=== PATIENT | female | born 1965 | race Caucasian/White ===

== ENCOUNTER 2020-01-01 16:01 | Outpatient (CLI) | payer OTHER, SELFPAY ==
--- NOTE | ~2020-01-01 | XR_ITS ---
EXAMINATION: XR wrist RT w scaphoid EXAM DATE: 01/01/2020 16:24 INDICATION: Right wrist pain, fall in August. TECHNIQUE: Right wrist frontal, frontal with ulnar deviation, oblique and lateral projections obtain ed and reviewed. There is no prior study for comparison. FINDINGS: Right wrist scapholunate joint space is maintained. No periosteal reaction or band of scle rosis to suggest subacute stress fracture. There are no acute fractures or dislocations identified. There is no subcutaneous gas. The soft tissue is unremarkable. There are no radiopaque foreign bod ies. There is mild triscaphe and 1st carpometacarpal primary osteoarthritis. There are no bony eros ions identified. IMPRESSION: Mild right wrist osteoarthritis. Reviewed, dictated and finalized at location G.
== END 2020-01-01 16:02 | disposition home or self-care (01) ==
LOC: CHSIMG 16:03
PROVIDERS: PCP Family Medicine; Visit Provider Family Medicine
DX: M25.531 Pain in right wrist (principal)
CPT/HCPCS: 73110

== ENCOUNTER 2020-04-16 10:31 | Outpatient (CLI) | payer OTHER, SELFPAY ==
--- NOTE | ~2020-04-16 | MM_ITS ---
EXAMINATION: MM screening [facility] BI w von HISTORY: Screening mammogram TECHNIQUE: Craniocaudal and mediolateral oblique 3-D tomosynthesis images were obtained and synthetic 2-D images were generated. CAD analysis was submitted and interpreted. COMPARISON: 04/15/2019, 02/05/2018 bilateral digital screening mammogram examinations BREAST PARENCHYMAL COMPOSITION: There are scattered areas of fibroglandular density. FINDINGS: There is no evidence of suspicious mass, calcification, or architectural distortion to sugg est malignancy in either breast. There has been no suspicious interval change. IMPRESSION: 1. No mammographic evidence of malignancy. 2. Recommend routine screening mammography in one year. BI-RADS Category 1: Negative.. Reviewed, dictated and finalized at location A. AD DRAWER
== END 2020-04-16 10:32 | disposition home or self-care (01) ==
LOC: CHSIMG 10:35
PROVIDERS: PCP Nurse Practitioner Family; Visit Provider Nurse Practitioner Family
DX: Z12.31 Encounter for screening mammogram for malignant neoplasm of breast (principal)
CPT/HCPCS: 77063; 77067

== ENCOUNTER 2020-08-24 10:30 | Emergency (ER) | payer OTHER, SELFPAY ==
--- NOTE | ~2020-08-24 | CT_ITS ---
EXAMINATION: CT abdomen pelvis w con DATE: 08/24/2020 12:00 INDICATION: Right lower quadrant abdominal pain. TECHNIQUE: Computed tomography (CT) of the abdomen and pelvis was performed with 100 mL Omnipaque 350 intravenous contrast. Automated exposure control and iterative reconstruction technique were employe d. The dose-length product was 543.25 mGy-cm. COMPARISON: None. FINDINGS: The visualized portions of the lung bases demonstrate mild atelectasis. No pleural effusion . The heart size is normal. No pericardial effusion. The liver, gallbladder, spleen, pancreas, adrena l glands, and kidneys are normal. The appendix is normal. There is diverticulosis of the colon withou t evidence of diverticulitis. There are no pathologically enlarged lymph nodes. There is no free intr aperitoneal fluid. There is moderate lumbar spondylosis. IMPRESSION: 1. No etiology for the patient's symptoms. Reviewed, dictated and finalized at location A.
[2020-08-24 10:35] VITALS: BP 140/84; PULSE 86; RESP 17; TEMP 37.1; O2SAT 99
[2020-08-24 11:03] LABS: Add Urine Microscopic? YES; Appearance Urine Clear (Clear); Bilirubin Urine Negative (Negative); Blood Urine Negative (Negative); Color Urine Yellow (Yellow); Glucose Urine UA Negative (Negative); Ketones Urine Negative (Negative); Leukocyte Esterase Ur 1+ LEU/UL (Negative); Nitrate Urine Negative (Negative); Protein Urine Negative (Negative); Urobilinogen Urine 0.2 mg/dL (0.2-1.0)
[2020-08-24] MEDS: ONDANSETRON INJ 4 MG/2 ML VIAL IV PUSH (11:04)
[2020-08-24] MEDS: HYDROmorphone HCL INJ (*CRX) 2 MG/ML VIAL 0.5 MG IV PUSH ×2 (11:05→13:54)
[2020-08-24 11:11] LABS: Basophils Absolute Auto 0.05 K/mm3 (0.00-0.10); Basophils Percent Auto 0.5 % (0.0-1.0); Eosinophils Absolute Auto 0.09 K/mm3 (0.02-0.50); Hematocrit 39.4 % (35.0-49.0); Hemoglobin 13.1 g/dL (12.0-15.0); Immature Granulocyte Absolute 0.03 K/mm3 (0.00-0.00); Immature Granulocyte Percent A 0.3 % (0.0-0.0); Lymphocytes Absolute Auto 2.09 K/mm3 (1.10-4.50); Lymphocytes Percent Auto 22.5 % (18.0-42.0); Mean Corpuscular HGB Conc 33.2 g/dL (32.0-36.0); Mean Corpuscular Hemoglobin 31.6 pg (27.0-31.0); Mean Corpuscular Volume 94.9 fL (78.0-102.0); Mean Platelet Volume 10.3 fl (9.2-11.8); Monocytes Percent Auto 5.4 % (2.0-11.0); Neutrophils Absolute Auto 6.5 K/mm3 (1.7-7.2); Neutrophils Percent Auto 70.3 % (50.0-70.0); Platelet Count Result 265 K/mm3 (150-420); Red Blood Count 4.15 M/mm3 (4.20-5.40); Red Cell Distribution Width 11.9 % (11.6-14.4); White Blood Count 9.3 K/mm3 (4.8-10.8)
[2020-08-24 11:16] LABS: Bacteria Urine Trace /hpf; RBC Urine None seen /hpf (0-2); Renal Epithelial Cells Urine Few /hpf; Squamous Epithelial Cell Urine Few /hpf (Few)
[2020-08-24 11:24] LABS: Alanine Aminotransferase 25 U/L (14-59); Albumin Level 3.6 g/dL (3.4-5.0); Alkaline Phosphatase 185 U/L (46-116); Anion Gap 7 mmol/L (8-16); Aspartate Amino Transferase 13 U/L (15-37); Bilirubin,Total 0.2 mg/dL (0.00-1.00); Blood Urea Nitrogen 9 mg/dL (7-18); Calcium 9.2 mg/dL (8.5-10.1); Carbon Dioxide 30 mmol/L (21-32); Chloride 103 mmol/L (98-108); Estimated Glomerular Filt Rate > 60; Glucose 131 mg/dL (70-99); Lipase 179 U/L (73-393); Osmolality Calculated 290 mOsm/kg (285-295); Potassium 4.3 mmol/L (3.5-5.1); Sodium 140 mmol/L (136-145)
--- NOTE | 2020-08-24 12:53 | PC.NURSE ---
[facility] CALLED FOR POSSIBLE TRANSFER
[2020-08-24 13:00] VITALS: BP 124/74; PULSE 80; O2SAT 95
--- NOTE | 2020-08-24 13:17 | ED.ABDPAIN ---
HPI - Abdominal Pain General Chief Complaint: Abdominal Pain Stated Complaint: Right side stomach pain Time Seen by Provider: 08/24/20 10:45 Source: patient Mode of arrival: ambulatory Limitations: no limitations History of Present Illness HPI narrative: Patient comes in with sharp, stabbing, ongoing RLQ abdominal pain. This has been ongoing for about a week she says and becoming a more severe pain. She even has pain with walking. She denies fever and chills. She denies any vaginal discharge or pelvic symptoms. Nothing has helped this at home. MD elicited complaint: abdominal pain Onset (ago): day(s) Pain Consistency: constant Location: RLQ Severity: severe Quality: stabbing Radiation: none Exacerbating factors: nothing Relieving factors: nothing Associated symptoms: denies other symptoms Related Data Home Medications Medication Instructions Recorded Confirmed docusate sodium [Stool Softener] 100 mg PO DAILY 08/24/20 08/24/20 fexofenadine 180 mg PO DAILY 08/24/20 08/24/20 valacyclovir 500 mg PO DAILY 08/24/20 08/24/20 Allergies Allergy/AdvReac Type Severity Reaction Status Date / Time No Known Allergies Allergy Verified 08/24/20 10:17 Review of Systems Constitutional: Constitutional: Reports no additional constitutional complaints Eyes: Eyes: Reports no additional eye complaints ENT: Reports system reviewed and no additional complaints, except as documented Cardiovascular: Cardiovascular: Reports no additional cardiovascular complaints Respiratory: Respiratory: Reports no additional respiratory complaints Gastrointestinal: Gastrointestinal: Reports no additional gastrointestinal complaints Genitourinary: Genitourinary: Reports no additional female genitourinary complaints Musculoskeletal: Musculoskeletal: Reports no additional musculoskeletal complaints Integumentary/Breasts: Skin/Breast: Reports system reviewed and no additional complaints, except as docu Neurologic: Reports system reviewed and no additional complaints, except as documented Psychiatric: Psychiatric: Reports no additional psychiatric complaints Endocrine: Endocrine: Reports no additional endocrine complaints Hematologic/Lymphatic: Hematologic/Lymphatic: Reports no additional hematologic/lymphatic complaints Allergic/Immunologic: Allergic/Immunologic: Reports no additional allergic/immunologic complaints [facility] Past Medical History Medical History (Updated 08/24/20 @ 13:34 by Avel Russell MD) Carpal tunnel syndrome, bilateral Chronic back pain Depression Hypertension Tobacco dependence Surgical History Surgical History History of X3 87,89, and 98 History of carpal tunnel surgery left arm and elbow 2017. Right arm and elbow 2018 Hx of tonsillectomy 1st grade Family History Family History Other Acute myocardial infarction Family history of malignant neoplasm Hypertension Social History Social History Smoking status: Current every day smoker Tobacco type: cigarettes Exam Const: General: alert Orientation/consciousness: patient oriented x3 HENMT: Head: normal to inspection Ears: external ears normal General nose exam: Normal external nose present Mouth: Yes Normal oral and palatal mucosa present Throat: posterior oropharynx normal Eyes: Conjunctivae: conjunctivae normal Neck: Neck: normal visual inspection Chest: Chest palpation & inspection: normal inspection of the chest Resp: Effort & Inspection: normal respiratory effort Auscultation: clear to auscultation bilaterally Cardio: Rate: regular rate Rhythm: regular rhythm GI: Other: abdomen soft, she is quite tender in the RLQ, with repeated exams revealing the same tenderness, and pain with percussion Skin: General skin exam: normal color Neuro: General: patient sharmila
[2020-08-24 14:28] VITALS: BP 122/88; PULSE 86; RESP 16; O2SAT 95
== END 2020-08-24 15:15 | disposition short-term general hospital (02) ==
PROVIDERS: Emergency Provider Emergency Medicine; PCP Nurse Practitioner Family
DX: R10.31 Right lower quadrant pain (principal)
CPT/HCPCS: 36415; 74177; 80053; 81001; 83690; 85025; 87086; 87088; 96365; 96375; 96376; 99285; J1170; J2405; J2543; Q9967

== ENCOUNTER 2020-10-28 19:46 | Emergency (ER) | payer OTHER, SELFPAY ==
[2020-10-28 20:30] VITALS: BP 126/71; PULSE 100; RESP 20; TEMP 36.6; O2SAT 98
[2020-10-28] MEDS: KETOROLAC (*BKC) 60 MG/2 ML VIAL IM (21:00)
[2020-10-28] MEDS: BACLOFEN 10 MG TABLET 20 MG PO (21:01)
[2020-10-28] MEDS: DEXAMETHASONE 4 MG TABLET 12 MG PO (21:02)
[2020-10-28] MEDS: HYDROcodone/acetaminophen (*CRX) 5-325 MG TABLET 2 TAB PO (21:05)
[2020-10-28 21:34] VITALS: BP 108/73; PULSE 87; RESP 20; TEMP 36.2; O2SAT 98
--- NOTE | 2020-10-28 21:36 | ED.BACK ---
HPI - Back Pain/Injury General Chief Complaint: Back Pain/Injury Stated Complaint: SI joint pain Time Seen by Provider: 10/28/20 20:30 Source: patient Mode of arrival: ambulatory Limitations: no limitations History of Present Illness HPI Narrative: Mrs Blanco comes in having minimal back pain, but severe pain in the left SI joint and radiation of that pain down her left leg to the foot. Pain is sharp, knife like, severe, and associate with previous known back injury. This radicular is has been ongoing, worse over the last two weeks. She comes in tonight because of worsing sharp radicular pain, which has been such that the little narcotic she has had has not been enough to resolve. It is unclear at this point as to if she has had an adequate trial of a steroid. MD elicited complaint: back pain Pertinent past history: prior back pain Onset (ago): day(s) Timing: constant Severity: severe Similar Symptoms Previously: Yes Quality: sharp Radiation: left leg below the knee Exacerbating factors: movement Relieving factors: immobilization Associated symptoms: denies other symptoms Treatments prior to arrival: other medications and prescription analgesics Related Data Home Medications Medication Instructions Recorded Confirmed docusate sodium [Stool Softener] 100 mg PO DAILY 08/24/20 10/28/20 valacyclovir 500 mg PO DAILY 08/24/20 10/28/20 bisacodyl 10 mg rectal suppository 10 mg RECTAL DAILY PRN 08/31/20 10/28/20 polyethylene glycol 3350 17 17 g PO DAILY 08/31/20 10/28/20 gram/dose oral powder pregabalin 75 mg PO BID 10/28/20 10/28/20 Allergies Allergy/AdvReac Type Severity Reaction Status Date / Time No Known Allergies Allergy Verified 08/31/20 09:28 Review of Systems Constitutional: Constitutional: Reports no additional constitutional complaints Eyes: Eyes: Reports no additional eye complaints ENT: Reports system reviewed and no additional complaints, except as documented Cardiovascular: Cardiovascular: Reports no additional cardiovascular complaints Respiratory: Respiratory: Reports no additional respiratory complaints Gastrointestinal: Gastrointestinal: Reports no additional gastrointestinal complaints Genitourinary: Genitourinary: Reports no additional female genitourinary complaints Musculoskeletal: Musculoskeletal: Reports as per HPI Integumentary/Breasts: Skin/Breast: Reports system reviewed and no additional complaints, except as docu Neurologic: Comments: no focal weakness, Psychiatric: Psychiatric: Reports no additional psychiatric complaints Endocrine: Endocrine: Reports no additional endocrine complaints Hematologic/Lymphatic: Hematologic/Lymphatic: Reports no additional hematologic/lymphatic complaints Allergic/Immunologic: Allergic/Immunologic: Reports no additional allergic/immunologic complaints [facility] Past Medical History Medical History (Updated 10/29/20 @ 05:59 by Avel Russell MD) Carpal tunnel syndrome, bilateral Chronic back pain Depression Hypertension Tobacco dependence Surgical History Surgical History History of X3 87,89, and 98 History of carpal tunnel surgery left arm and elbow 2017. Right arm and elbow 2018 Hx of tonsillectomy 1st grade Family History Family History Other Acute myocardial infarction Family history of malignant neoplasm Hypertension Social History Social History Smoking status: Current every day smoker Tobacco type: cigarettes Exam Const: General: no acute distress Orientation/consciousness: patient oriented x3 HENMT: Head: normal to inspection Ears: external ears normal and TM's normal bilaterally Mouth: Yes Normal oral and palatal mucosa present Throat: posterior oropharynx normal Eyes: Conjunctivae: conjunctivae normal Neck: Neck: normal visual inspect
== END 2020-10-28 21:56 | disposition home or self-care (01) ==
PROVIDERS: Emergency Provider Emergency Medicine; PCP Nurse Practitioner Family
DX: M54.30 Sciatica, unspecified side (principal)
CPT/HCPCS: 96372; 99283; A9270; J1885; J8540

== ENCOUNTER 2021-02-28 11:14 | Outpatient (RCR) | payer OTHER, SELFPAY ==
--- NOTE | 2021-02-28 12:11 | PTOPEVAL ---
Thank you for referring Irina Blanco to [facility].? The patient is scheduled to be seen for therapy? ____x/week for ___ weeks. Please review, sign, date and return this plan of care FREDY. I agree with and certify that the following plan of care is medically necessary. Referring Physician Date Admitting Provider: Attending Provider: Kash Butt, MD Referring Provider: *PT Outpatient Evaluation Start: 02/28/21 11:15 Freq: Status: Active Protocol: Document 02/28/21 11:15 ACR (Rec: 02/28/21 12:10 ACR [id number]) Therapy Assessment Status Assessment Status Assessment Status Evaluation Outpatient Past Medical History Cardiovascular History Hx Hypertension Yes Musculoskeletal History Hx Back Pain Yes Psychosocial History Hx Anxiety Yes Hx Depression Yes Pain History Has Past Pain Affected Your Daily Life Yes History of Long-Term Prescription Pain Yes Medication Use (Opiates) Evaluation Information Problem Diagnosis cervical radiculopathy Onset 12/29/20 Subjective Information Patient reports that two Query Text:As Reported By Patient/ months ago she woke up and had Family neck pain that started in the neck and went down to her toes. She states that she has some numbness in the arm that comes and goes, but it is very intense and feels like a million needles in the arm. Patient states that she has difficulty with all activities especially with extending the neck. Patient states that her goal for therapy is to not hurt. Prior Level of Function Activity Level (Last 3 Months) Occupation disabled Hand Dominance Left Activity of Daily Living Ability Independent Indoor/Home Mobility Independent Community Mobility Independent Stairs Ability Independent Functional Cognition (Planning, Shopping Independent , Taking Medications) Cooking Yes Cleaning Yes Laundry Yes Shopping Yes Driving Yes Pain Assessment Timing of Pain Assessment Timing of Pain Assessment Assessment Pain Scale Pain Scale Used Numeric (1 - 10) Self Report Pain Assessment Right Neck Reported Pain Level [address]
== END 2021-02-28 13:30 | disposition home or self-care (01) ==
LOC: CHSPT 11:14
PROVIDERS: Visit Provider Anesthesiology Pain Medicine
DX: M54.12 Radiculopathy, cervical region (principal)
CPT/HCPCS: 97014; 97110; 97140; 97161; G0283

== ENCOUNTER 2021-04-19 11:51 | Outpatient (CLI) | payer OTHER, SELFPAY ==
--- NOTE | ~2021-04-19 | MM_ITS ---
EXAMINATION: MM screening [facility] BI w von HISTORY: Screening mammogram TECHNIQUE: Craniocaudal and mediolateral oblique 3-D tomosynthesis images were obtained and synthetic 2-D images were generated. CAD analysis was submitted and interpreted. COMPARISON: 04/16/2020, 04/16/2019, 02/05/2018 BREAST PARENCHYMAL COMPOSITION: There are scattered areas of fibroglandular density. FINDINGS: There is no evidence of suspicious mass, calcification, or architectural distortion to sugg est malignancy in either breast. There has been no suspicious interval change. IMPRESSION: 1. No mammographic evidence of malignancy. 2. Recommend routine screening mammography in one year. BI-RADS Category 1: Negative Reviewed, dictated and finalized at location A. ANCHOR
== END 2021-04-19 11:52 | disposition home or self-care (01) ==
LOC: CHSIMG 11:52
PROVIDERS: PCP Nurse Practitioner Family; Visit Provider Nurse Practitioner Family
DX: Z12.31 Encounter for screening mammogram for malignant neoplasm of breast (principal)
CPT/HCPCS: 77063; 77067

== ENCOUNTER 2021-05-04 15:23 | Emergency (ER) | payer OTHER, SELFPAY ==
--- NOTE | ~2021-05-04 | XR_ITS ---
XR hand RT min 3V DATE: 05/04/2021 15:59 INDICATION: Laceration of right first digit TECHNIQUE: 3 views COMPARISON: 01/01/2020 right wrist FINDINGS: There is mild osteoarthritis at the radionavicular, triscaphe and first carpometacarpal and some interphalangeal joints. No fracture or dislocation, periosteal reaction or bone destruction is detected. No radiopaque soft tissue foreign body or subcutaneous emphysema is noted. IMPRESSION: Polyarticular osteoarthritis Reviewed, dictated and finalized at location A. ACTOR MACHINE OPERATOR
[2021-05-04 15:39] VITALS: BP 141/92; PULSE 111; RESP 20; TEMP 36.9; O2SAT 98
--- NOTE | 2021-05-04 15:50 | ED.WOUNDLAC ---
HPI - Wound/Laceration General Chief Complaint: Wound/Laceration Stated Complaint: cut thumb Time Seen by Provider: 05/04/21 15:25 Source: patient and RN notes reviewed Mode of arrival: ambulatory Limitations: no limitations History of Present Illness Onset (ago): hour(s) (1) Location: other (right index finger) Place: home Patient tetanus UTD: No Context: accidental Associated symptoms: pain Treatments prior to arrival: bandage Related Data Home Medications Medication Instructions Recorded Confirmed duloxetine 60 mg PO DAILY 05/04/21 lisinopril 20 mg PO DAILY 05/04/21 omeprazole 20 mg PO DAILY 05/04/21 pregabalin [Lyrica] 75 mg PO BID 05/04/21 05/04/21 Allergies Allergy/AdvReac Type Severity Reaction Status Date / Time No Known Allergies Allergy Verified 05/04/21 15:48 Review of Systems Review of Systems: All systems reviewed & are unremarkable except as noted in HPI and below PMFSH Past Medical History Medical History Carpal tunnel syndrome, bilateral Chronic back pain Depression Hypertension Laceration of finger of right hand Tobacco dependence Surgical History Surgical History History of X3 87,89, and 98 History of carpal tunnel surgery left arm and elbow 2017. Right arm and elbow 2018 Hx of tonsillectomy 1st grade Family History Family History Other Acute myocardial infarction Family history of malignant neoplasm Hypertension Social History Social History Smoking status: Never smoker Tobacco type: cigarettes Exam Const: General: healthy appearing, no acute distress and alert Orientation/consciousness: patient oriented x3 Limitations: no limitations HENMT: Head: normal to inspection Ears: external ears normal, TM's normal bilaterally and EAC's normal General nose exam: Normal external nose present and Normal nares present Face and sinus: sinuses nontender Mouth: Yes lip normal and Yes moist mucous membranes Throat: posterior oropharynx normal Eyes: Conjunctivae: conjunctivae normal Pupils: Equal, round and reactive pupils present EOM: EOMs intact bilaterally Neck: Neck: normal visual inspection Chest: Chest palpation & inspection: normal inspection of the chest Resp: Effort & Inspection: normal respiratory effort Auscultation: clear to auscultation bilaterally Cardio: Rate: regular rate and tachycardic Other: HR moderated spontaneously. GI: GI Palp: Yes Soft to palpation and No Tenderness to palpation present (GI) Auscultation: normal bowel sounds Back/Spine/Pelvis: Back: no CVA tenderness Skin: General skin exam: normal color Rashes: no rashes Neuro: General: patient oriented x3, moves all extremities, no meningeal signs, no focal motor deficits and CN's II-XI intact bilaterally Extrem: General: normal to inspection and no pedal edema Other: Lateral right index finger 3/4 cm well approx laceration. fullROM. no other acute finger abnormality. Psych: Appearance: grossly normal and well kempt Mental Status: mental status grossly normal Affect: normal affect Attitude: cooperative Thought content: Yes Normal thought content present Course Course Emergency Course: Pt was stable and pain-free in the ED. Reevaluation(s) Reevaluation #1: VSS. Date: 05/04/21 Time: 15:51 Vital Signs Vital signs: Vital Signs Temperature 36.9 C 05/04/21 15:39 Pulse Rate 111 H 05/04/21 15:39 Respiratory Rate 20 05/04/21 15:39 Blood Pressure 141/92 H 05/04/21 15:39 Pulse Oximetry 98 05/04/21 15:39 Temperature 36.8 C 05/04/21 16:24 Pulse Rate 85 05/04/21 16:24 Respiratory Rate 20 05/04/21 16:24 Blood Pressure 120/68 05/04/21 16:24 Pulse Oximetry 96 05/04/21 16:24 Procedures Laceration 3/4 cm lac r
[2021-05-04] MEDS: TETANUS,DIPHTHERIA,AC PERTUSSIS ADULT 0.5 ML (ADACEL) IM (16:09)
[2021-05-04] MEDS: ACETAMINOPHEN 325 MG TABLET 650 MG PO (16:09)
[2021-05-04 16:24] VITALS: BP 120/68; PULSE 85; RESP 20; TEMP 36.8; O2SAT 96
== END 2021-05-04 16:35 | disposition home or self-care (01) ==
PROVIDERS: Emergency Provider Emergency Medicine; PCP Nurse Practitioner Family
DX: S61.210A Laceration without foreign body of right index finger without damage to nail, initial encounter (principal); W45.8XXA Other foreign body or object entering through skin, initial encounter
CPT/HCPCS: 73130; 90471; 90715; 99283; A9270

== ENCOUNTER 2021-06-28 11:19 | Outpatient (CLI) | payer OTHER, SELFPAY ==
--- NOTE | ~2021-06-28 | US_ITS ---
EXAMINATION: US pelvic complete EXAM DATE: 06/28/2021 11:41 INDICATION: Concern for fibroid in uterus or cyst on ovary. Endometrial ablation. TECHNIQUE: Pelvic transabdominal sonogram was performed. There are multiple grayscale and Doppler im ages available for interpretation. Correlation is made to CT abdomen pelvis 08/24/2020. FINDINGS: Uterus measures 8.7 x 2.6 x 3.3 cm, and is morphologically normal. Endometrial stripe ulises sures 2.9 mm, within normal limits. There is no free pelvic fluid. Right adnexa: The ovary measures 2.3 x 1.2 x 1.5 cm and is morphologically normal. Ovarian vascular f low confirmed. Left adnexa: The ovary measures 2.9 x 1.7 x 1.8 cm and is morphologically normal. Ovarian vascular fl ow confirmed. IMPRESSION: 1. Unremarkable pelvic ultrasound exam. Reviewed, dictated and finalized at location A.
== END 2021-06-28 11:20 | disposition home or self-care (01) ==
LOC: CHSIMG 11:21
PROVIDERS: PCP Nurse Practitioner Family; Visit Provider Nurse Practitioner Family
DX: R10.32 Left lower quadrant pain (principal)
CPT/HCPCS: 76856

== ENCOUNTER 2021-06-30 09:27 | Outpatient (CLI) | payer OTHER, SELFPAY ==
[2021-06-30 09:59] LABS: Estimated Glomerular Filt Rate > 60
== END 2021-06-30 09:28 | disposition home or self-care (01) ==
LOC: CHSIMG 09:28
PROVIDERS: PCP Nurse Practitioner Family; Visit Provider Nurse Practitioner Family
DX: R10.32 Left lower quadrant pain (principal)
CPT/HCPCS: 99199

== ENCOUNTER 2021-10-15 12:56 | Emergency (ER) | payer OTHER, SELFPAY ==
[2021-10-15 13:08] VITALS: BP 134/74; PULSE 84; RESP 20; TEMP 37.1; O2SAT 98
[2021-10-15] MEDS: methylPREDNISolone SOD SUCC 125 MG VIAL IM (14:15)
--- NOTE | 2021-10-15 14:21 | ED.GENADULT ---
HPI - General Adult General Chief complaint: Allergic Reaction Stated complaint: stung by wasp in R knee History of Present Illness HPI narrative: The patient is 56-year-old woman who has had previous hypersensitivity to wasp stings whereby she had experienced three wasp stings in the past, resulting in significant swelling and discomfort. Never had airway compromise or respiratory difficulties or facial swelling. She sustained a wasp sting to the right knee today resulting in swelling in the site. no dyspnea. No respiratory difficulties. No fevers or chills. No other complaints. Related Data Home Medications Medication Instructions Recorded Confirmed duloxetine 60 mg capsule,delayed 60 mg PO DAILY 05/04/21 10/15/21 release pregabalin 75 mg capsule (Lyrica) 75 mg PO BID 05/04/21 10/15/21 Allergies Allergy/AdvReac Type Severity Reaction Status Date / Time No Known Allergies Allergy Verified 10/15/21 13:13 Review of Systems Review of Systems: All systems reviewed & are unremarkable except as noted in HPI and below Constitutional: Constitutional: Reports no additional constitutional complaints, Denies anorexia, Denies body ache(s), Denies chills, Denies excessive sweating, Denies fatigue, Denies fever(s), Denies frequent falls, Denies headache(s), Denies malaise and Denies poor appetite Eyes: Eyes: Reports no additional eye complaints, Denies blurry vision, Denies change in vision, Denies irritation, Denies itchy eyes and Denies photophobia ENT: Reports system reviewed and no additional complaints, except as documented, Reports Normal hearing present, Denies change in voice, Denies dysphagia, Denies vertigo, Denies dizziness, Denies ear discharge, Denies headache(s), Denies hearing loss, Denies hoarseness, Denies nasal congestion, Denies neck pain, Denies sinus pressure, Denies sore throat and Denies throat swelling Cardiovascular: Cardiovascular: Reports no additional cardiovascular complaints, Denies chest pain, Denies syncope, Denies rapid heart rate, Denies irregular heart rhythm, Denies leg edema, Denies dyspnea and Denies slow heart rate Respiratory: Respiratory: Reports no additional respiratory complaints, Denies cough, Denies dyspnea, Denies stridor and Denies wheezing Gastrointestinal: Gastrointestinal: Reports no additional gastrointestinal complaints, Denies abdominal pain, Denies melena, Denies hematochezia, Denies dysphagia, Denies diarrhea, Denies nausea and Denies vomiting Genitourinary: Genitourinary: Denies hematuria, Denies urinary frequency, Denies dysuria, Denies flank pain and Denies urinary urgency Musculoskeletal: Musculoskeletal: Reports no additional musculoskeletal complaints, Denies abnormal gait, Denies back pain, Denies myalgias, Denies arthralgias, Denies joint swelling, Denies limited range of motion, Denies muscle cramps, Denies muscle weakness, Denies neck pain and Denies numbness Integumentary/Breasts: Skin/Breast: Reports system reviewed and no additional complaints, except as docu, Denies breast pain, Reports change in pigmentation, Denies pruritus, Reports erythema, Reports rash ( Redness change in skin color and rash localized to the right knee) and Denies wounds Comments: no evidence of urticaria. No facial swelling. Neurologic: Reports system reviewed and no additional complaints, except as documented, Reports Normal hearing present, Denies Abnormal speech present, Denies abnormal gait, Denies confusion, Denies vertigo, Denies dizziness, Denies syncope, Denies frequent falls, Denies headache(s), Denies focal weakness, Denies numbness and Denies paresthesias Psychiatric: Psychiatric: Reports no additional psychiatric complaints and Denies confusion Endocrine: Endocrine: Reports no additional endocrine complaints, Denies cold intolerance, Denies excessive sweating, Denies fatigue and Denies heat intolerance Hematologic/Lymphatic: Hematologic/Lymphatic: Reports no additional hematologi
[2021-10-15 14:50] VITALS: BP 128/72; PULSE 84; RESP 20; TEMP 37; O2SAT 98
== END 2021-10-15 14:55 | disposition home or self-care (01) ==
PROVIDERS: Emergency Provider Emergency Medicine; PCP Nurse Practitioner Family
DX: T63.461A Toxic effect of venom of wasps, accidental (unintentional), initial encounter (principal)
CPT/HCPCS: 96372; 99283; J2930

== ENCOUNTER 2021-11-04 18:42 | Emergency (ER) | payer OTHER, SELFPAY ==
--- NOTE | ~2021-11-04 | CT_ITS ---
EXAMINATION: CT abdomen pelvis w con DATE: 11/04/2021 20:41 INDICATION: Right upper quadrant abdominal pain for 3 days TECHNIQUE: Computed tomography (CT) of the abdomen and pelvis was performed with 100 cc Omnipaque 350 intravenous contrast. The dose-length product was 634.25 mGy-cm. Automated exposure control and iter ative reconstruction technique were employed. COMPARISON: CT dated 08/24/2020. FINDINGS: Lung bases are unremarkable. Heart size normal. No significant pleural or pericardial effus ion. No significant vascular abnormality. No lymphadenopathy. Fatty infiltration of the liver. Gallbladder is present. The spleen, pancreas, adrenal glands and kid neys are unremarkable. Small fat-containing umbilical hernia. Colonic diverticulosis without evidence for diverticulitis. No acute osseous abnormality. No free air or free fluid. Nonobstructive bowel pa ttern. Normal appendix. IMPRESSION: 1. No acute abdominal abnormality. Reviewed, dictated and finalized at location A.
--- NOTE | 2021-11-04 18:57 | ED.ABDPAIN ---
HPI - Abdominal Pain General Chief Complaint: Abdominal Pain Stated Complaint: pt thinks appendicitis Time Seen by Provider: 11/04/21 18:57 Source: patient and RN notes reviewed Mode of arrival: ambulatory Limitations: no limitations History of Present Illness MD elicited complaint: abdominal pain Pertinent past history: none Onset (ago): day(s) (3) Pain Consistency: intermittent Location: RUQ Severity: moderate Quality: stabbing and sharp Radiation: epigastric Migration to: no migration Exacerbating factors: eating Relieving factors: nothing Associated symptoms: nausea Related Data Home Medications Medication Instructions Recorded Confirmed duloxetine 60 mg capsule,delayed 60 mg PO DAILY 05/04/21 11/04/21 release pregabalin 75 mg capsule (Lyrica) 75 mg PO BID 05/04/21 11/04/21 hydrocodone 5 mg-acetaminophen 325 1 tablet PO PRN PRN Back Pain 11/04/21 11/04/21 mg tablet Allergies Allergy/AdvReac Type Severity Reaction Status Date / Time No Known Allergies Allergy Verified 10/17/21 11:44 Review of Systems Review of Systems: All systems reviewed & are unremarkable except as noted in HPI and below Constitutional: Constitutional: Denies chills and Denies fever(s) Cardiovascular: Cardiovascular: Denies chest pain Gastrointestinal: Gastrointestinal: Reports as per HPI, Reports bloating, Denies constipation and Denies diarrhea Genitourinary: Genitourinary: Denies hematuria, Denies nocturia and Denies dysuria [facility] Past Medical History Medical History Carpal tunnel syndrome, bilateral Chronic back pain Depression Hot flashes not due to menopause Hypertension Laceration of finger of right hand Tobacco dependence Surgical History Surgical History History of X3 87,89, and 98 History of carpal tunnel surgery left arm and elbow 2017. Right arm and elbow 2018 Hx of tonsillectomy 1st grade Family History Family History Other Acute myocardial infarction Family history of malignant neoplasm Hypertension Social History Social History Smoking status: Never smoker Tobacco type: cigarettes Exam Const: General: no acute distress, alert and ill appearing acutely Nutritional Appearance: well nourished Orientation/consciousness: patient oriented x3 HENMT: Head: normal to inspection Ears: external ears normal Face and sinus: normal facial exam Mouth: Yes moist mucous membranes Eyes: Conjunctivae: conjunctivae normal Pupils: Equal, round and reactive pupils present EOM: EOMs intact bilaterally Neck: Neck: normal visual inspection Resp: Effort & Inspection: normal respiratory effort Auscultation: clear to auscultation bilaterally Cardio: Rate: regular rate Rhythm: regular rhythm GI: GI Palp: Yes Soft to palpation, Yes Tenderness to palpation present (GI) ( severe RUQ), Yes Guarding due to palpation present (GI) and No Rebound tenderness present Auscultation: normal bowel sounds Back/Spine/Pelvis: Back: no CVA tenderness Cervical Spine: cervical ROM normal Thoracic/Lumbar Spine: thoraco-lumbar ROM normal Skin: General skin exam: normal color Rashes: no rashes Neuro: General: patient oriented x3, moves all extremities, no focal motor deficits and CN's II-XI intact bilaterally Speech: normal speech Gait exam (Neuro): Normal gait present Extrem: General: normal to inspection and no clubbing, cyanosis or edema Psych: Mental Status: mental status grossly normal Affect: normal affect Attitude: cooperative Course Vital Signs Vital signs: Vital Signs Temperature 36.6 C 11/04/21 19:14 Pulse Rate 90 11/04/21 19:14 Respiratory Rate 20 11/04/21 19:14 Blood Pressure 151/91 H 11/04/21 19:14 Pulse Oximetry 98 11/04/21 19:14 Oxygen Delivery
[2021-11-04 19:14] VITALS: BP 151/91; PULSE 90; RESP 20; TEMP 36.6; O2SAT 98
[2021-11-04] MEDS: HYDROmorphone HCL INJ (*CRX) 2 MG/ML VIAL 1 MG IV PUSH (19:22)
[2021-11-04] MEDS: ONDANSETRON INJ 4 MG/2 ML VIAL IV PUSH (19:22)
[2021-11-04 19:25] VITALS: BP 150/80; PULSE 90; RESP 20; O2SAT 97
[2021-11-04 19:25] LABS: Basophils Absolute Auto 0.05 K/mm3 (0.00-0.10); Basophils Percent Auto 0.6 % (0.0-1.0); Eosinophils Absolute Auto 0.08 K/mm3 (0.02-0.50); Hematocrit 40.6 % (35.0-49.0); Hemoglobin 13.6 g/dL (12.0-15.0); Immature Granulocyte Absolute 0.04 K/mm3 (0.00-0.00); Immature Granulocyte Percent A 0.5 % (0.0-0.0); Lymphocytes Absolute Auto 2.54 K/mm3 (1.10-4.50); Lymphocytes Percent Auto 30.4 % (18.0-42.0); Mean Corpuscular HGB Conc 33.5 g/dL (32.0-36.0); Mean Corpuscular Hemoglobin 31.7 pg (27.0-31.0); Mean Corpuscular Volume 94.6 fL (78.0-102.0); Mean Platelet Volume 10.4 fl (9.2-11.8); Monocytes Absolute Auto 0.65 K/mm3 (0.10-0.90); Monocytes Percent Auto 7.8 % (2.0-11.0); Neutrophils Percent Auto 59.7 % (50.0-70.0); Platelet Count Result 276 K/mm3 (150-420); Red Blood Count 4.29 M/mm3 (4.20-5.40); Red Cell Distribution Width 11.9 % (11.6-14.4); White Blood Count 8.4 K/mm3 (4.8-10.8)
[2021-11-04 19:27] LABS: Add Urine Microscopic? YES; Appearance Urine Clear (Clear); Bilirubin Urine Negative (Negative); Blood Urine Negative (Negative); Color Urine Light Yellow (Yellow); Glucose Urine UA Negative (Negative); Ketones Urine Negative (Negative); Leukocyte Esterase Ur 1+ LEU/UL (Negative); Nitrate Urine Negative (Negative); Protein Urine Negative (Negative); Specific Grav Ur <= 1.005 (1.010-1.020); Urobilinogen Urine 0.2 mg/dL (0.2-1.0); pH Urine 5.5 (5.0-8.0)
[2021-11-04 19:33] LABS: Bacteria Urine Trace /hpf; RBC Urine 0-2 /hpf (0-2); Squamous Epithelial Cell Urine Rare /hpf (Few)
[2021-11-04 19:44] LABS: Alanine Aminotransferase 46 U/L (14-59); Alkaline Phosphatase 185 U/L (46-116); Anion Gap 9 mmol/L (8-16); Aspartate Amino Transferase 25 U/L (15-37); Bilirubin,Total 0.2 mg/dL (0.00-1.00); Blood Urea Nitrogen 15 mg/dL (7-18); Calcium 9.4 mg/dL (8.5-10.1); Carbon Dioxide 29 mmol/L (21-32); Chloride 100 mmol/L (98-108); Estimated CRCL calculation 59 ml/min; Estimated Glomerular Filt Rate > 60; Glucose 109 mg/dL (70-99); Lipase 176 U/L (73-393); Osmolality Calculated 287 mOsm/kg (285-295); Potassium 3.7 mmol/L (3.5-5.1); Sodium 138 mmol/L (136-145); Total Protein 7.3 g/dL (6.4-8.2)
[2021-11-04 19:47] LABS: Lactic Acid Reflex 0.9 mmol/L (0.4-2.0)
[2021-11-04 19:52] LABS: Amylase 43 U/L (25-115)
[2021-11-04 20:15] VITALS: BP 140/90; PULSE 90; RESP 20; TEMP 36.6; O2SAT 96
[2021-11-04 21:23] VITALS: BP 139/90; PULSE 90; RESP 18; TEMP 36.6; O2SAT 100
== END 2021-11-04 21:24 | disposition home or self-care (01) ==
PROVIDERS: Emergency Provider Emergency Medicine; PCP Family Medicine
DX: R10.11 Right upper quadrant pain (principal)
CPT/HCPCS: 36415; 74177; 80053; 81001; 82150; 83605; 83690; 85025; 87086; 87088; 96374; 96375; 99284; J1170; J2405; Q9967

== ENCOUNTER 2021-11-08 10:41 | Emergency (ER) | payer OTHER, SELFPAY ==
--- NOTE | ~2021-11-08 | CT_ITS ---
EXAMINATION: CT abdomen pelvis wo/w con DATE: 11/08/2021 13:04 INDICATION: Right upper quadrant pain TECHNIQUE: Computed tomography (CT) of the abdomen and pelvis was performed with 100 cc Omnipaque 350 intravenous contrast. The dose-length product was 812.17 mGy-cm. Automated exposure control and iter ative reconstruction technique were employed. COMPARISON: CT dated 11/04/2021. FINDINGS: Lung bases are unremarkable. Heart size normal. No significant pleural or pericardial effus ion. Tiny fat-containing umbilical hernia. Fatty infiltration of the liver. The spleen, pancreas, adrenal glands and kidneys are unremarkable. G allbladder is present. Nonobstructive bowel gas pattern. Colonic diverticulosis without evidence for diverticulitis. No significant vascular abnormality. No lymphadenopathy. Mild osteoarthritis of the h ips. Moderate multilevel facet degenerative change. IMPRESSION: 1. No acute abdominal abnormality. Reviewed, dictated and finalized at location B.
--- NOTE | ~2021-11-08 | US_ITS ---
EXAMINATION: US right upper quadrant DATE: 11/08/2021 11:37 INDICATION: Right upper quadrant pain TECHNIQUE: Multiple grayscale and Doppler ultrasound images of the abdomen were obtained. COMPARISON: CT, 11/04/2021 FINDINGS: Bowel gas obscures visualization of the pancreas. The liver demonstrates increased echogeni city, heterogenous echotexture, and decreased through transmission. No surface nodularity. Normal hep atopetal flow in the main portal vein. The gallbladder is normal with no abnormal wall thickening, pe richolecystic fluid or stones. The normal common bile duct measures 3 mm. There was no sonographic Mu rphy sign although sensitivity is limited by pain medication. IMPRESSION: 1. No sonographic correlate for the patient's symptoms. 2. Diffuse hepatic steatosis. Reviewed, dictated and finalized at location A.
[2021-11-08 10:50] VITALS: BP 143/100; PULSE 106; RESP 18; TEMP 36.1; O2SAT 100
--- NOTE | 2021-11-08 10:50 | ED.ABDPAIN ---
HPI - Abdominal Pain General Chief Complaint: Abdominal Pain Stated Complaint: Gallbladder pain Time Seen by Provider: 11/08/21 10:52 Source: patient and RN notes reviewed Mode of arrival: ambulatory Limitations: no limitations History of Present Illness HPI narrative: patient presents with worsening abdominal pain. She is actually doubled over in pain. She was here 3 days ago for similar symptoms and had CT scan blood work done. I was unable to do any ultrasound at that time. She states she has been taking the Bentyl 3 times a day without any relief. She has been watching what she is eating. Only thing she had prior to arrival with tomato juice. She says she still has pain in the right upper quadrant epigastric area. She denies any fever chills. She has been having some nausea vomiting diarrhea. MD elicited complaint: abdominal pain Pertinent past history: none Onset (ago): day(s) (4) Pain Consistency: intermittent Location: RUQ Severity: severe Quality: stabbing, sharp and burning Radiation: epigastric Migration to: no migration Exacerbating factors: eating Relieving factors: nothing Associated symptoms: nausea, vomiting and diarrhea Related Data Home Medications Medication Instructions Recorded Confirmed duloxetine 60 mg capsule,delayed 60 mg PO DAILY 05/04/21 11/08/21 release pregabalin 75 mg capsule (Lyrica) 75 mg PO BID 05/04/21 11/08/21 hydrocodone 5 mg-acetaminophen 325 1 tablet PO PRN PRN Back Pain 11/04/21 11/08/21 mg tablet Allergies Allergy/AdvReac Type Severity Reaction Status Date / Time No Known Allergies Allergy Verified 11/08/21 10:55 Review of Systems Review of Systems: All systems reviewed & are unremarkable except as noted in HPI and below Constitutional: Constitutional: Denies chills and Denies fever(s) Respiratory: Respiratory: Denies cough Genitourinary: Genitourinary: Denies nocturia and Denies dysuria [facility] Past Medical History Medical History Carpal tunnel syndrome, bilateral Chronic back pain Depression Hot flashes not due to menopause Hypertension Laceration of finger of right hand Tobacco dependence Surgical History Surgical History History of X3 87,89, and 98 History of carpal tunnel surgery left arm and elbow 2017. Right arm and elbow 2018 Hx of tonsillectomy 1st grade Family History Family History Other Acute myocardial infarction Family history of malignant neoplasm Hypertension Social History Social History Smoking status: Never smoker Tobacco type: cigarettes Exam Const: General: no acute distress ( Appears in pain), alert and ill appearing acutely Nutritional Appearance: well nourished Orientation/consciousness: patient oriented x3 Limitations: no limitations HENMT: Head: normal to inspection Ears: external ears normal Face and sinus: normal facial exam Eyes: Conjunctivae: conjunctivae normal Pupils: Equal, round and reactive pupils present EOM: EOMs intact bilaterally Neck: Neck: normal visual inspection Resp: Effort & Inspection: normal respiratory effort Auscultation: clear to auscultation bilaterally Cardio: Rate: tachycardic Rhythm: regular rhythm GI: GI Palp: Yes Soft to palpation, Yes Tenderness to palpation present (GI) ( severe right upper quadrant and epigastrium), Yes Guarding due to palpation present (GI) ( moderate) and No Rebound tenderness present Auscultation: normal bowel sounds Back/Spine/Pelvis: Back: no CVA tenderness Cervical Spine: cervical ROM normal Thoracic/Lumbar Spine: thoraco-lumbar ROM normal Skin: General skin exam: normal color Rashes: no rashes Neuro: General: patient oriented x3, moves all extremities, no focal motor deficits and CN's II-XI intact bilaterally
[2021-11-08 11:09] LABS: Basophils Absolute Auto 0.05 K/mm3 (0.00-0.10); Basophils Percent Auto 0.7 % (0.0-1.0); Eosinophils Absolute Auto 0.11 K/mm3 (0.02-0.50); Eosinophils Percent Auto 1.6 % (1.0-6.0); Hematocrit 42.9 % (35.0-49.0); Hemoglobin 14.2 g/dL (12.0-15.0); Immature Granulocyte Absolute 0.03 K/mm3 (0.00-0.00); Immature Granulocyte Percent A 0.4 % (0.0-0.0); Lymphocytes Absolute Auto 1.88 K/mm3 (1.10-4.50); Lymphocytes Percent Auto 27.9 % (18.0-42.0); Mean Corpuscular HGB Conc 33.1 g/dL (32.0-36.0); Mean Corpuscular Hemoglobin 31.7 pg (27.0-31.0); Mean Corpuscular Volume 95.8 fL (78.0-102.0); Mean Platelet Volume 10.5 fl (9.2-11.8); Monocytes Absolute Auto 0.55 K/mm3 (0.10-0.90); Monocytes Percent Auto 8.1 % (2.0-11.0); Neutrophils Absolute Auto 4.1 K/mm3 (1.7-7.2); Neutrophils Percent Auto 61.3 % (50.0-70.0); Platelet Count Result 274 K/mm3 (150-420); Red Blood Count 4.48 M/mm3 (4.20-5.40); Red Cell Distribution Width 11.9 % (11.6-14.4); White Blood Count 6.8 K/mm3 (4.8-10.8)
[2021-11-08] MEDS: HYDROmorphone HCL INJ (*CRX) 2 MG/ML VIAL 1 MG IV PUSH (11:10)
[2021-11-08 11:20] LABS: Amylase 47 U/L (25-115); CRP < 0.5 mg/dL (0.0-0.9); Lipase 206 U/L (73-393)
[2021-11-08 11:23] LABS: Alanine Aminotransferase 42 U/L (14-59); Alkaline Phosphatase 172 U/L (46-116); Anion Gap 7 mmol/L (8-16); Aspartate Amino Transferase 27 U/L (15-37); Bilirubin,Total 0.7 mg/dL (0.00-1.00); Blood Urea Nitrogen 11 mg/dL (7-18); Calcium 9.7 mg/dL (8.5-10.1); Carbon Dioxide 28 mmol/L (21-32); Chloride 102 mmol/L (98-108); Estimated CRCL calculation 60 ml/min; Estimated Glomerular Filt Rate > 60; Glucose 130 mg/dL (70-99); Osmolality Calculated 285 mOsm/kg (285-295); Potassium 4.5 mmol/L (3.5-5.1); Sodium 137 mmol/L (136-145); Total Protein 7.5 g/dL (6.4-8.2)
[2021-11-08 11:26] LABS: Lactic Acid Reflex 0.6 mmol/L (0.4-2.0)
[2021-11-08 11:51] VITALS: BP 132/89; PULSE 88; RESP 16; O2SAT 99
[2021-11-08 11:54] LABS: Add Urine Microscopic? YES; Appearance Urine Clear (Clear); Bilirubin Urine Negative (Negative); Blood Urine Negative (Negative); Color Urine Light Yellow (Yellow); Glucose Urine UA Negative (Negative); Ketones Urine Negative (Negative); Leukocyte Esterase Ur 1+ LEU/UL (Negative); Nitrate Urine Negative (Negative); Protein Urine Negative (Negative); Specific Grav Ur <= 1.005 (1.010-1.020); Urobilinogen Urine 0.2 mg/dL (0.2-1.0)
[2021-11-08 12:04] LABS: Bacteria Urine Trace /hpf; RBC Urine None seen /hpf (0-2); Squamous Epithelial Cell Urine Occasional /hpf (Few); WBC Urine 0-3 /hpf (0-3)
--- NOTE | 2021-11-08 12:09 | PC.NURSE ---
PT IS AWAITING US AND LAB RESULTS AT THIS TIME. MOTHER AT BEDSIDE. WARM BLANKET PROVIDED. NAD NOTED AT THIS TIME. WILL CONTINUE TO MONITOR.
--- NOTE | 2021-11-08 12:33 | PC.NURSE ---
PT IS AWAITING CT AT THIS TIME. PT REPORTS SX ARE STARTING TO RETURN. WILL CONTINUE TO MONITOR.
[2021-11-08 13:15] VITALS: BP 149/95; PULSE 72; RESP 16; O2SAT 99
--- NOTE | 2021-11-08 13:41 | PC.NURSE ---
PT IS AWAITING RETURN CALL FROM DR JUAREZ AT [place]. PT IS UPDATED ON STATUS. WILL CONTINUE TO MONITOR. NAD NOTED.
--- NOTE | 2021-11-08 14:40 | ECG_ITS ---
Measurements Intervals [place] Rate: 80 P: 23 TN: 125 QRS: 7 QRSD: 77 T: 16 QT: 362 QTc: 418 Interpretive Statements SINUS RHYTHM POOR R-WAVE PROGRESSION ABNORMAL ECG NO PREVIOUS ECG AVAILABLE FOR COMPARISON Electronically Signed On 11-08-2021 15:16:57 CDT by Edi Dominguez M.D.
--- NOTE | 2021-11-08 14:40 | PC.NURSE ---
PT HAS BEEN ACCEPTED TO [facility], SHE IS AWAITING ROOM ASSIGNMENT AT THIS TIME. PT REPORTS NAUSEA AND PAIN, PT HAS RHYTHMIC SHAKING NOTED. ERP IS NOTIFIED, AWAITING MEDICATION ORDERS AT THIS TIME. WILL CONTINUE TO MONITOR. PT IS HYPERVENTILATING IN EXAM ROOM, ANXIOUS. MOTHER AT BEDSIDE.
[2021-11-08] MEDS: ONDANSETRON INJ 4 MG/2 ML VIAL IV PUSH (14:47)
[2021-11-08 15:05] VITALS: BP 136/88; PULSE 78; RESP 16; TEMP 36.7; O2SAT 99
--- NOTE | 2021-11-08 15:05 | PC.NURSE ---
PT IS AWARE OF PLAN OF CARE, AMBULATORY TO [facility] WITHOUT DIFFICULTY. ANOTHER ICE PACK PROVIDED FOR HER ABD. PT REPORTS THIS MAKES IT FEEL BETTER. SISTER AT BEDSIDE. PT IS IN GOWN, BELONGINGS LIST COMPLETED. PT IS AWAITING ROOM ASSIGNMENT. WILL CONTINUE TO MONITOR.
[2021-11-08 15:08] LABS: Troponin I 5.5 ng/L (0.00-60.4)
--- NOTE | 2021-11-08 15:17 | PC.NURSE ---
SPOKE WITH MARIA INES BELTRAN AT [facility], SHE IS TO NOTIFY HOSPITALIST OF EKG AND TROP RESULTS, THEN CALL THIS RN BACK WITH BED ASSIGNMENT. WILL CONTINUE TO MONITOR.
--- NOTE | 2021-11-08 15:43 | PC.NURSE ---
1530 PT HAS BEEN ACCEPTED AND ROOM ASSIGNMENT AT [facility] IS 261, RN CAROLINA TO TAKE PT
[2021-11-08 15:53] VITALS: BP 132/88; PULSE 80; RESP 16; TEMP 36.7; O2SAT 99
== END 2021-11-08 16:28 | disposition short-term general hospital (02) ==
PROVIDERS: Emergency Provider Emergency Medicine; PCP Nurse Practitioner Family
DX: R10.11 Right upper quadrant pain (principal); R82.90 Unspecified abnormal findings in urine
CPT/HCPCS: 36415; 74178; 76705; 80053; 81001; 82150; 83605; 83690; 84484; 85025; 86140; 87086; 93005; 96374; 96375; 99285; J1170; J2405; Q9967

== ENCOUNTER 2021-11-08 17:00 | Observation (INO) | payer OTHER, SELFPAY ==
--- NOTE | ~2021-11-08 | NM_ITS ---
EXAMINATION: NM hepatobiliary w pharm DATE: 11/09/2021 14:40 INDICATION: Right upper quadrant abdominal pain. COMPARISON: CT abdomen and pelvis 11/08/2021 TECHNIQUE: 4.9 mCi Tc-99m mebrofenin (Choletec) was administered intravenously. Scintigraphic images of the abdomen were obtained for one hour. Then, 1.5 mcg sincalide (Kinevac) IV was administered, an d imaging was continued for 30 minutes. FINDINGS: There is normal clearance of radiotracer from the blood pool. There is homogeneous tracer u ptake by the liver. Activity progresses to the bowel and gallbladder. Gallbladder ejection fraction (GBEF) was 65%. Note that most patients with gallbladder dysfunction have GBEF < 35%, which overlaps with the broad normal range of 10-90%. IMPRESSION: 1. Normal hepatobiliary scintigraphy. Reviewed, dictated and finalized at location A.
[2021-11-08 17:00] VITALS: BP 114/83; PULSE 88; RESP 16; TEMP 36.4; O2SAT 98
--- NOTE | 2021-11-08 17:00 | ADMGEN ---
This patient, Irina Blanco, was admitted to Medical Room 261-01. Patient/family oriented to hospital policies and general routines including ID bracelet, bed and alarms, visiting hours, pain management, procedures, bathroom and other care routines, personal items, smoking policy, room service/diet, and visiting hours. Information on how to activate the Rapid Response Team has been discussed. Patient/Family are encouraged to report perceived risks to care and to ask questions if they do not understand what they are told or what they should do.
[2021-11-08 18:02] VITALS: BMI 32.5
[2021-11-08 18:19] VITALS: PULSE 75; RESP 18; O2SAT 98; BMI 32.5
--- NOTE | 2021-11-08 18:35 | PM.IMHP ---
H&P: HPI History of Present Illness Date/Time: 11/08/21 18:35 Chief Complaint: Abdominal pain Narrative: This is a 56-year-old female patient has a direct admit from [facility]. The patient has a history of chronic back pain. She has also had a chronic history of abdominal pain as well. The patient does go to pain management. The patient stated that she has been drinking heavily and that she just stopped drinking 2 days ago. The patient stated that she drinks a 6 pack of beer every day. The patient stated that she is depressed and she is dealing with a lot in her life. The patient does not have a GI specialist and has never been to . The patient denies being on omeprazole but it is on her medication sheet. The patient stated that her pain gets worse with eating. The patient went to [facility] approximately 3 days ago for similar symptoms and had a negative CT scan. Patient was taking Bentyl 3 times a day without any relief. She was just drinking liquids. However she told the ER provider at [place] that she had been drinking tomato juice. She had a positive Fitzgerald sign. Repeat CT scan at [facility] today was read as no acute abdominal abnormality. Ultrasound of the upper quadrant was read as no sonographic correlation for the patient's symptoms. Diffuse hepatic steatosis. The patient was receiving Dilaudid at [facility]. I spoke with Dr. Clark at [facility] who insisted that the patient needs further workup at this hospital. All for chest were coming back negative. I spoke with Dr. George GI specialist who stated that he would see the patient if she came to [facility]. The patient is being admitted to observation status on 11/08/2021. Review of Systems Review of Systems: See history of present illness All systems reviewed & are unremarkable except as noted in HPI and below Constitutional: Constitutional: Reports as per HPI and Reports no additional constitutional complaints Eyes: Eyes: Reports as per HPI and Reports no additional eye complaints ENT: Reports system reviewed and no additional complaints, except as documented and Reports Normal hearing present Cardiovascular: Cardiovascular: Reports no additional cardiovascular complaints Respiratory: Respiratory: Reports no additional respiratory complaints and Reports no additional respiratory complaints Gastrointestinal: Gastrointestinal: Reports as per HPI and Reports no additional gastrointestinal complaints Musculoskeletal: Musculoskeletal: Reports no additional musculoskeletal complaints Integumentary/Breasts: Skin/Breast: Reports system reviewed and no additional complaints, except as docu and Reports as per HPI Neurologic: Reports system reviewed and no additional complaints, except as documented, Reports as per HPI and Reports Normal hearing present Psychiatric: Psychiatric: Reports no additional psychiatric complaints and Reports as per HPI Endocrine: Endocrine: Reports no additional endocrine complaints Hematologic/Lymphatic: Hematologic/Lymphatic: Reports no additional hematologic/lymphatic complaints Allergic/Immunologic: Allergic/Immunologic: Reports no additional allergic/immunologic complaints PMFSH Past Medical History Medical History Carpal tunnel syndrome, bilateral Chronic back pain Depression Hot flashes not due to menopause Hypertension Laceration of finger of right hand Tobacco dependence Surgical History Surgical History History of X3 87,89, and 98 History of carpal tunnel surgery left arm and elbow 2017. Right arm and elbow 2018 Hx of tonsillectomy 1st grade Family History Family History Other Acute myocardial infarction Family history of malignant neoplasm Hypertension Social History Social History (U
[2021-11-08] MEDS: DEXTROSE 5%/0.45% SOD CHL 1,000 ML 100 ML IV CONT (19:02)
[2021-11-08] MEDS: PREGABALIN (*CRX) 75 MG CAPSULE PO (19:07)
[2021-11-08] MEDS: BELLADONNA ALK/PHENOB ELIX 10 ML, MAG HYDROX/ALUMINUM HYD/SIMETH 30 ML, LIDOCAINE HCL 2... PO (19:30)
[2021-11-08 19:33] LABS: Lipase 97 U/L (23-300)
[2021-11-08 19:34] LABS: Lactic Acid Reflex 0.9 mmol/L (0.7-2.0); Magnesium 2.2 mg/dL (1.6-2.3)
[2021-11-08 19:44] LABS: Troponin I < 0.012 ng/mL (0.000-0.034)
[2021-11-08 20:17] VITALS: BP 117/85; PULSE 84; RESP 20; TEMP 35.9; O2SAT 97
[2021-11-08] MEDS: FAMOTIDINE 20 MG/2 ML VIAL IV PUSH (20:53)
[2021-11-08] MEDS: DICYCLOMINE HCL 10 MG CAPSULE 20 MG PO (20:54)
[2021-11-08] MEDS: chlordiazePOXIDE (*CRX) 25 MG CAPSULE PO (20:54)
[2021-11-09] VITALS: BP 108/65; PULSE 76; RESP 18; TEMP 36.4; O2SAT 94
[2021-11-09 00:14] LABS: Glucose Point of Care 160 mg/dl (65-105)
[2021-11-09 04:28] VITALS: BP 109/67; PULSE 73; RESP 18; TEMP 35.6; O2SAT 97
[2021-11-09] MEDS: HYDROcodone/acetaminophen (*CRX) 5-325 MG TABLET 1 TAB PO ×2 (05:06→14:48)
[2021-11-09] MEDS: DEXTROSE 5%/0.45% SOD CHL 1,000 ML 100 ML IV CONT (05:07)
[2021-11-09 05:56] LABS: Glucose Point of Care 148 mg/dl (65-105)
[2021-11-09 06:04] LABS: Basophils Percent Auto 0.7 % (0.2-1.2); Eosinophils Absolute Auto 0.2 K/mm3 (0-0.3); Eosinophils Percent Auto 3.2 % (0-4.4); Hematocrit 39.8 % (37.0-47.0); Immature Granulocyte Absolute 0.02 K/mm3 (0.00-0.031); Immature Granulocyte Percent A 0.4 % (0-0.5); Lymphocytes Absolute Auto 1.76 K/mm3 (0.9-3.2); Lymphocytes Percent Auto 31.6 % (18.3-44.2); Mean Corpuscular HGB Conc 32.7 g/dl (32-36); Mean Corpuscular Hemoglobin 31.6 pg (26-34); Mean Corpuscular Volume 96.6 fl (80-100); Monocytes Absolute Auto 0.5 K/mm3 (0.1-0.6); Monocytes Percent Auto 9.3 % (2.6-8.5); Neutrophils Absolute Auto 3.1 K/mm3 (1.3-6.7); Neutrophils Percent Auto 54.8 % (45.5-73.1); Platelet Count Result 250 k/mm3 (150-375); Red Blood Count 4.12 M/mm3 (4.2-5.4); Red Cell Distribution Width 12.1 % (11.5-14.5); White Blood Count 5.6 K/mm3 (4.5-10.0)
[2021-11-09 06:15] LABS: Alanine Aminotransferase 31 U/L (6-35); Albumin Level 3.9 g/dL (3.5-5.1); Alkaline Phosphatase 129 U/L (38-126); Anion Gap 6 mmol/L (8-16); Aspartate Amino Transferase 29 U/L (14-36); Bilirubin,Total 0.5 mg/dL (0.2-1.3); Blood Urea Nitrogen 8 mg/dL (7-17); CRP 0.8 mg/dL (<1.0); Calcium 9.1 mg/dL (8.4-10.2); Carbon Dioxide 30 mmol/L (22-30); Chloride 98 mmol/L (98-107); Estimated CRCL calculation 64 ml/min; Estimated Glomerular Filt Rate > 60; Glucose 143 mg/dL (65-110); Lactate Dehydrogenase 168 U/L (120-246); Lipase 109 U/L (23-300); Magnesium 2.1 mg/dL (1.6-2.3); Potassium 3.7 mmol/L (3.4-5.0); Sodium 134 mmol/L (137-145)
[2021-11-09 06:20] LABS: Lactic Acid Reflex 0.8 mmol/L (0.7-2.0)
[2021-11-09 07:32] LABS: Glucose Point of Care 148 mg/dl (65-105)
[2021-11-09] MEDS: LACTATED RINGERS 1,000 ML 150 ML IV CONT (07:56)
[2021-11-09 08:06] VITALS: BP 103/69; PULSE 68; RESP 16; TEMP 36.1; O2SAT 98
--- NOTE | 2021-11-09 08:26 | WPDANESEPPF ---
Anes - Initial Pre Proc Eval Procedure: Operation Date: 11/09/21 14:30 Proposed Procedures p Esophagogastroduodenoscopy - Jose G Rome MD Date/Time: 11/09/21 08:26 Surgeon: JEFF Greco Pre Op Diagnosis: abd pain intractable Patient Data Age: 56 Gender: F Height: 1.52 m Weight: 75.5 kg Last Vital Signs Temp 97 F L 11/09/21 08:06 Pulse 68 11/09/21 08:06 Resp 16 11/09/21 08:06 BP 103/69 11/09/21 08:06 Pulse Ox 98 11/09/21 08:06 O2 Del Method Room Air 11/09/21 08:06 Allergies Allergy/AdvReac Type Severity Reaction Status Date / Time No Known Allergies Allergy Verified 11/09/21 08:05 Home Medications Medication Instructions Recorded Confirmed Type duloxetine 60 mg capsule,delayed 60 mg PO DAILY 05/04/21 11/08/21 History release pregabalin 75 mg capsule (Lyrica) 75 mg PO BID 05/04/21 11/08/21 History omeprazole 20 mg capsule,delayed 20 mg PO DAILY #30 caps 07/13/21 11/08/21 Rx release lisinopril 20 mg tablet 20 mg PO DAILY #90 tabs 09/15/21 11/08/21 Rx valacyclovir 500 mg tablet See Rx Instructions .Route 10/31/21 11/08/21 Rx .COMPLEX #20 tabs dicyclomine 20 mg tablet 20 mg PO TID PRN abdominal 11/04/21 11/08/21 Rx discomfort #30 tabs hydrocodone 5 mg-acetaminophen 325 1 tablet PO PRN PRN Back Pain 11/04/21 11/08/21 History mg tablet Laboratory Tests 11/08/21 11/08/21 11/08/21 18:55 19:06 19:06 WBC RBC Hgb Hct MCV MCH MCHC RDW Plt Count MPV Immature Gran % (Auto) Neut % (Auto) Lymph % (Auto) [place] % (Auto) Eos % (Auto) Baso % (Auto) Lymph # (Auto) [place] # (Auto) Eos # (Auto) Baso # (Auto) Abs Immat Gran (auto) Absolute Neuts (auto) Absolute Nucleated RBC Nucleated RBC % Sodium Potassium Chloride Carbon Dioxide Anion Gap BUN Creatinine Estim Creat Clear Calc Estimated GFR Glucose POC Capillary Glucose Lactic Acid 0.9 mmol/L mmol/L (0.7-2.0) Calcium Magnesium Total Bilirubin AST ALT Alkaline Phosphatase Lactate Dehydrogenase Troponin I C-Reactive Protein Total Protein Albumin Lipase 97 U/L U/L (23-300) TSH (Reflex) H. pylori Breath Test Pending 11/08/21 11/08/21 11/09/21 19:06 19:06 00:06 WBC RBC Hgb Hct MCV MCH MCHC RDW Plt Count MPV Immature Gran % (Auto) Neut % (Auto) Lymph % (Auto) [place] % (Auto) Eos % (Auto) Baso % (Auto) Lymph # (Auto) [place] # (Auto) Eos # (Auto) Baso # (Auto) Abs Immat Gran (auto) Absolute Neuts (auto) Absolute Nucleated RBC Nucleated RBC % Sodium Potassium Chloride Carbon Dioxide Anion Gap BUN Creatinine Estim Creat Clear Calc Estimated GFR Glucose POC Capillary Glucose 160 mg/dl H mg/dl (65-105) Lactic Acid Calcium Magnesium 2.2 mg/dL mg/dL (1.6-2.3) Total Bilirubin AST ALT Alkaline Phosphatase Lactate Dehydrogenase Troponin I < 0.012 ng/mL ng/mL (0.000-0
--- NOTE | 2021-11-09 09:01 | WPDGICN ---
Assessment and Plan Assessment and plan (1) GERD (gastroesophageal reflux disease): Code(s): K21.9 - Gastro-esophageal reflux disease without esophagitis Status: Acute Assessment and Plan: alcoholic and also using narcotics both can affect gi tract will assess with egd to check if esophagitis, hernia, pud, etc (2) Epigastric pain: Code(s): R10.13 - Epigastric pain Status: Acute Assessment and Plan: egd on ppi for now (3) Nausea: Code(s): R11.0 - Nausea Status: Acute Assessment and Plan: intermittent dry heaves gb unremarkable more recommendations after egd (4) Depression: Code(s): F32.9 - Major depressive disorder, single episode, unspecified Status: Acute (5) Chronic back pain: Code(s): M54.9 - Dorsalgia, unspecified; G89.29 - Other chronic pain Status: Acute (6) Alcoholic: Code(s): F10.20 - Alcohol dependence, uncomplicated Status: Acute Assessment and Plan: on ciwa protocol will need stop drinking thiamine, mvi GI Consult Note Consult date/time: 11/09/21 09:01 Reason for consult: epigastric pain HPI: Irina Blanco is a 56 year old female with history of anxiety, chronic back pain on norco as needed, HTN?who was directly admitted from [facility].? She has been having over a month of intermittent epigastric pain with radiation to right side and her back, she also is an alcoholic normally 6 pack daily for years and lately under a lot of stress.?She has been using bentyl tid and omeprazole without much help, never has seen a GI doctor. Recent CT scan a/o without major findings other than fatty liver.? Review of Systems Review of Systems: See history of present illness All systems reviewed & are unremarkable except as noted in HPI and below Constitutional: Constitutional: Reports as per HPI and Reports no additional constitutional complaints Eyes: Eyes: Reports as per HPI and Reports no additional eye complaints ENT: Reports system reviewed and no additional complaints, except as documented and Reports Normal hearing present Cardiovascular: Cardiovascular: Reports no additional cardiovascular complaints Respiratory: Respiratory: Reports no additional respiratory complaints and Reports no additional respiratory complaints Gastrointestinal: Gastrointestinal: Reports as per HPI and Reports no additional gastrointestinal complaints Musculoskeletal: Musculoskeletal: Reports no additional musculoskeletal complaints Integumentary/Breasts: Skin/Breast: Reports system reviewed and no additional complaints, except as docu and Reports as per HPI Neurologic: Reports system reviewed and no additional complaints, except as documented, Reports as per HPI and Reports Normal hearing present Psychiatric: Psychiatric: Reports no additional psychiatric complaints and Reports as per HPI Endocrine: Endocrine: Reports no additional endocrine complaints Hematologic/Lymphatic: Hematologic/Lymphatic: Reports no additional hematologic/lymphatic complaints Allergic/Immunologic: Allergic/Immunologic: Reports no additional allergic/immunologic complaints [facility] Past Medical History Medical History (Updated 11/09/21 @ 09:06 by Jose G Rome MD) Alcoholic Carpal tunnel syndrome, bilateral Chronic back pain Depression Epigastric pain Hot flashes not due to menopause Hypertension Laceration of finger of right hand Nausea Tobacco dependence Surgical History Surgical History History of X3 87,89, and 98 History of carpal tunnel surgery left arm and elbow 2017. Right arm and elbow 2018 Hx of tonsillectomy 1st grade Family History Family History Other Acute myocardial infarction Family history of malignant neoplasm Hypertension Social History Social History (Updated 10/24
[2021-11-09 09:19] VITALS: BP 90/57; PULSE 76; RESP 18; O2SAT 98
[2021-11-09 09:29] VITALS: BP 96/60; PULSE 79; RESP 23; O2SAT 99
[2021-11-09 09:39] VITALS: BP 112/74; PULSE 75; RESP 17; O2SAT 96
[2021-11-09] MEDS: PANTOPRAZOLE 40 MG TABLET PO (10:41)
[2021-11-09] MEDS: lisinopriL 20 MG TABLET PO (10:41)
[2021-11-09] MEDS: DULoxetine HCL 60 MG CAPSULE.DR PO (10:41)
[2021-11-09] MEDS: valACYclovir HCL 500 MG TABLET BY MOUTH (10:41)
[2021-11-09] MEDS: THIAMINE HCL 200 MG/2 ML VIAL 100 MG IV PUSH (10:42)
[2021-11-09] MEDS: FAMOTIDINE 20 MG/2 ML VIAL IV PUSH (10:43)
[2021-11-09] MEDS: FOLIC ACID 1 MG/0.2 ML INJ IV PUSH (10:45)
[2021-11-09] MEDS: PREGABALIN (*CRX) 75 MG CAPSULE PO (10:45)
[2021-11-09 12:19] LABS: Glucose Point of Care 144 mg/dl (65-105)
--- NOTE | 2021-11-09 12:59 | PC.NURSE ---
To GI Lab per wheelchair, IV saline locked. Report given to Izabel MOTA at [id number].
--- NOTE | 2021-11-09 13:21 | PC.NURSE ---
Returned from GI Lab at 1005. Report received from Emily MOTA.
--- NOTE | 2021-11-09 15:11 | PM.DS ---
DS: Admitting Diagnosis Discharge Date 11/09/2021 Admitting Diagnosis Right upper quadrant abdominal pain, unspecified GERD Chronic back pain DS: Discharge Diagnosis Discharge Diagnosis (1) Abdominal pain: Qualifiers: Abdominal location: right upper quadrant Qualified Code(s): R10.11 - Right upper quadrant pain Code(s): R10.9 - Unspecified abdominal pain Status: Inactive Assessment and Plan: - Pt. was evaluated by GI service, Dr. George and had an EGD this AM that was negative for any acute findings. In addition, HIDA scan was performed that demonstrated normal hepatobiliary scintigraphy. CT of the abdomen from outside facility last evening demonstrated no acute abnormality and right upper quadrant ultrasound from outside facility demonstrated no sonographic correlation for patient's symptoms, however it was noted she has a diffusely fatty liver. Her lipase was normal at 109. Patient has been able to tolerate p.o. intake without difficulty and she has received IV fluids. She has received pain medications and that has controlled her pain. -Dr. George okay with discharge given the fact that she had negative EGD. He will follow up with her as outpatient. (2) GERD (gastroesophageal reflux disease): Code(s): K21.9 - Gastro-esophageal reflux disease without esophagitis Status: Acute Assessment and Plan: -patient was administered IV Pepcid (3) Back pain: Qualifiers: Back pain laterality: unspecified Back pain location: low back pain Chronicity: chronic Sciatica laterality: sciatica of left side Sciatica presence: with sciatica Qualified Code(s): M54.42 - Lumbago with sciatica, left side; G89.29 - Other chronic pain Code(s): M54.9 - Dorsalgia, unspecified Status: Chronic Assessment and Plan: -continue Lyrica -continue Vicodin -Cymbalta -chronic in nature. (4) Depression: Code(s): F32.9 - Major depressive disorder, single episode, unspecified Status: Acute Assessment and Plan: -the patient was crying in the room. She has been drinking excessively. She does not have any current plan to commit suicide. (5) Hypertension: Code(s): I10 - Essential (primary) hypertension Status: Acute Assessment and Plan: -continue lisinopril -blood pressures been stable during this admission. (6) Alcohol abuse: Code(s): F10.10 - Alcohol abuse, uncomplicated Status: Acute Assessment and Plan: -patient admits to drinking at minimum a 6 pack of beer daily for many years being she most recently stopped a few days ago. -at the time of discharge patient is not demonstrating any signs of acute withdrawal. -she is stable for discharge at this time as she is not seeking out any rehabilitiation. DS: Summary Hospital Course Reason for hospitalization: Abdominal Pain Hospital Course: This 56-year-old female patient with significant past medical history of chronic alcohol abuse, GERD, hot flashes, hypertension, depression, chronic back pain on pain management contract, and most significantly chronic abdominal pain, was admitted to our facility last evening as a direct admit from [place]. Patient had presented there with complaints several days and increasing abdominal pain. Her initial presentation there CT of abdomen pelvis was performed that was negative for any acute findings and she was given Bentyl to take at home without any relief. She re-presented last evening CT again demonstrated no acute findings to explain her symptoms and ultrasound of the right upper quadrant was also negative. She was transferred here for expert GI consult and definitive treatment. This patient is a chronic alcoholic and endorses drinking at least a 6 pack of beer daily for many years. She stopped approximately now 3 days ago. She has continued to drink in the setting of having chronic abdominal pain. Dr. George performed
== END 2021-11-09 16:35 | disposition home or self-care (01) ==
PROVIDERS: Internal Medicine Gastroenterology; Nurse Practitioner; Admitting Provider Surgery; PCP Nurse Practitioner Family; Visit Provider Nurse Practitioner Adult Health
PROC: 0DJ08ZZ Inspection of Upper Intestinal Tract, Via Natural or Artificial Opening Endoscopic (ICD-10-PCS; CPT 43235; principal; 2021-11-09 08:45)
DX: R10.11 Right upper quadrant pain (principal); R10.13 Epigastric pain; K21.9 Gastro-esophageal reflux disease without esophagitis; M54.42 Lumbago with sciatica, left side; G89.29 Other chronic pain; F32.9 Major depressive disorder, single episode, unspecified; I10 Essential (primary) hypertension; F10.10 Alcohol abuse, uncomplicated; N95.1 Menopausal and female climacteric states; R11.0 Nausea; F41.9 Anxiety disorder, unspecified; E66.9 Obesity, unspecified; Z68.32 Body mass index [BMI] 32.0-32.9, adult; Z79.891 Long term (current) use of opiate analgesic; Z79.899 Other long term (current) drug therapy; Z82.49 Family history of ischemic heart disease and other diseases of the circulatory system
CPT/HCPCS: 43239; 36415; 78227; 80053; 82948; 83013; 83605; 83615; 83690; 83735; 84443; 84484; 85025; 86140; 88305; 96360; 96361; 96374; 96375; A9270; A9537; G0378; G0379; J2805; J3411; J7120

== ENCOUNTER 2022-04-04 11:31 | Outpatient (CLI) | payer MEDICARE, MEDICAID, SELFPAY ==
--- NOTE | ~2022-04-04 | XR_ITS ---
EXAMINATION: XR toe 1st RT min 2V INDICATION: Right first toe pain TECHNIQUE: Three views of the right first toe are obtained. COMPARISON: None available FINDINGS: There is mild osteoarthritis at the first metatarsophalangeal joint and in the visible inte rphalangeal joints. No fracture is identified. Bone alignment is normal. The soft tissues are unremar kable. IMPRESSION: 1. No acute osseous abnormality. Reviewed, dictated and finalized at location L. ESS MECHANIC
[2022-04-04 11:44] LABS: Basophils Absolute Auto 0.05 K/mm3 (0.00-0.10); Basophils Percent Auto 0.7 % (0.0-1.0); Eosinophils Absolute Auto 0.07 K/mm3 (0.02-0.50); Eosinophils Percent Auto 0.9 % (1.0-6.0); Hematocrit 42.4 % (35.0-49.0); Hemoglobin 14.2 g/dL (12.0-15.0); Immature Granulocyte Absolute 0.03 K/mm3 (0.00-0.00); Immature Granulocyte Percent A 0.4 % (0.0-0.0); Lymphocytes Absolute Auto 2.57 K/mm3 (1.10-4.50); Lymphocytes Percent Auto 33.7 % (18.0-42.0); Mean Corpuscular HGB Conc 33.5 g/dL (32.0-36.0); Mean Corpuscular Hemoglobin 31.1 pg (27.0-31.0); Mean Corpuscular Volume 92.8 fL (78.0-102.0); Mean Platelet Volume 10.6 fl (9.2-11.8); Monocytes Absolute Auto 0.54 K/mm3 (0.10-0.90); Monocytes Percent Auto 7.1 % (2.0-11.0); Neutrophils Absolute Auto 4.4 K/mm3 (1.7-7.2); Neutrophils Percent Auto 57.2 % (50.0-70.0); Platelet Count Result 305 K/mm3 (150-420); Red Blood Count 4.57 M/mm3 (4.20-5.40); Red Cell Distribution Width 12.1 % (11.6-14.4); White Blood Count 7.6 K/mm3 (4.8-10.8)
[2022-04-04 12:53] LABS: Alanine Aminotransferase 45 U/L (14-59); Alkaline Phosphatase 179 U/L (46-116); Anion Gap 9 mmol/L (8-16); Aspartate Amino Transferase 33 U/L (15-37); Bilirubin,Total 0.5 mg/dL (0.00-1.00); Blood Urea Nitrogen 11 mg/dL (7-18); Calcium 9.4 mg/dL (8.5-10.1); Carbon Dioxide 30 mmol/L (21-32); Chloride 97 mmol/L (98-108); Cholesterol 210 mg/dL (0-200); Estimated Glomerular Filt Rate > 60; Free T4 Free Thyroxine 0.79 ng/dL (0.76-1.46); Glucose 120 mg/dL (70-99); HDL Direct 49 mg/dL (40-60); LDL Cholesterol Calculated 138 mg/dL (<130); Osmolality Calculated 282 mOsm/kg (285-295); Potassium 4.8 mmol/L (3.5-5.1); Sodium 136 mmol/L (136-145); Thyroid Stimulating Hormone 1.26 uIU/mL (0.36-3.74); Total Protein 7.2 g/dL (6.4-8.2); Triglycerides 113 mg/dL (0-150)
[2022-04-06 17:43] LABS: Vitamin D 25 Hydroxy 41 ng/mL (30-100)
== END 2022-04-04 11:32 | disposition home or self-care (01) ==
PROVIDERS: PCP Nurse Practitioner Family; Visit Provider Nurse Practitioner Family
DX: R53.83 Other fatigue (principal); Z13.6 Encounter for screening for cardiovascular disorders; I10 Essential (primary) hypertension; M79.674 Pain in right toe(s); Z79.899 Other long term (current) drug therapy
CPT/HCPCS: 36415; 73660; 80053; 80061; 82306; 84439; 84443; 85025

== ENCOUNTER 2022-04-13 09:32 | Outpatient (CLI) | payer MEDICARE, MEDICAID, SELFPAY ==
--- NOTE | ~2022-04-13 | US_ITS ---
Limited Abdominal Sonogram: Real-time sonographic imaging of the right upper quadrant was performed. Clinical History: Fatty liver Findings: The liver appears echogenic, with no evidence of mass lesion or bile duct dilatation. Main portal vein demonstrates normal direction of flow. The gallbladder is well distended, and appears no rmal with no evidence of gallstone or wall thickening. The common bile duct measures 3 mm. The visua lized pancreas, aorta, and IVC are unremarkable. Right kidney measures 9.6 cm in length. No hydroneph rosis. Impression: Diffuse fatty infiltration of liver. Reviewed, dictated and finalized at location M. IERS B[employer]ERS [employer]OD [employer]NERS Impression: Diffuse fatty infiltration of liver.
== END 2022-04-13 09:33 | disposition home or self-care (01) ==
LOC: CHSIMG 09:34
PROVIDERS: PCP Nurse Practitioner Family; Visit Provider Nurse Practitioner Family
DX: K76.0 Fatty (change of) liver, not elsewhere classified (principal)
CPT/HCPCS: 76705

== ENCOUNTER 2022-04-17 07:59 | Outpatient (NON) | payer MEDICARE, MEDICAID, SELFPAY | END 2022-04-17 08:00 | disposition home or self-care (01) | PROVIDERS: Visit Provider Nurse Practitioner Family | DX: Z12.4 Encounter for screening for malignant neoplasm of cervix (principal); Z11.51 Encounter for screening for human papillomavirus (HPV); Z11.8 Encounter for screening for other infectious and parasitic diseases | CPT/HCPCS: 87491; 87591; 87624; 87625; 88175; G0145 ==

== ENCOUNTER 2022-04-20 08:02 | Outpatient (CLI) | payer MEDICARE, MEDICAID, SELFPAY ==
--- NOTE | ~2022-04-20 | MM_ITS ---
EXAMINATION: MM screening [facility] BI w von HISTORY: Screening mammogram TECHNIQUE: Craniocaudal and mediolateral oblique 3-D tomosynthesis images were obtained and synthetic 2-D images were generated. CAD analysis was submitted and interpreted. COMPARISON: 04/19/2021, 04/16/2020, 04/15/2019 BREAST PARENCHYMAL COMPOSITION: There are scattered areas of fibroglandular density. FINDINGS: No suspicious mass, calcification, or architectural distortion are identified in either adalgisa ast to suggest malignancy. There has been no suspicious interval change. IMPRESSION: 1. No mammographic evidence of malignancy. 2. Recommend routine screening mammography in one year. BI-RADS Category 1: Negative Reviewed, dictated and finalized at location A. ON INFORMATION SPECIALIST
== END 2022-04-20 08:03 | disposition home or self-care (01) ==
LOC: CHSIMG 08:04
PROVIDERS: PCP Nurse Practitioner Family; Visit Provider Nurse Practitioner Family
DX: Z12.31 Encounter for screening mammogram for malignant neoplasm of breast (principal)
CPT/HCPCS: 77063; 77067

== ENCOUNTER 2022-07-27 09:29 | Outpatient (CLI) | payer MEDICARE, MEDICAID, SELFPAY ==
[2022-07-27 09:39] LABS: Basophils Absolute Auto 0.06 K/mm3 (0.00-0.10); Basophils Percent Auto 0.9 % (0.0-1.0); Eosinophils Absolute Auto 0.07 K/mm3 (0.02-0.50); Hematocrit 42.8 % (35.0-49.0); Hemoglobin 14.2 g/dL (12.0-15.0); Immature Granulocyte Absolute 0.03 K/mm3 (0.00-0.00); Immature Granulocyte Percent A 0.4 % (0.0-0.0); Lymphocytes Absolute Auto 2.14 K/mm3 (1.10-4.50); Lymphocytes Percent Auto 31.4 % (18.0-42.0); Mean Corpuscular HGB Conc 33.2 g/dL (32.0-36.0); Mean Corpuscular Hemoglobin 31.1 pg (27.0-31.0); Mean Corpuscular Volume 93.9 fL (78.0-102.0); Mean Platelet Volume 10.4 fl (9.2-11.8); Monocytes Percent Auto 7.3 % (2.0-11.0); Platelet Count Result 282 K/mm3 (150-420); Red Blood Count 4.56 M/mm3 (4.20-5.40); White Blood Count 6.8 K/mm3 (4.8-10.8)
[2022-07-27 10:29] LABS: Alanine Aminotransferase 42 U/L (14-59); Albumin Level 3.9 g/dL (3.4-5.0); Alkaline Phosphatase 180 U/L (46-116); Anion Gap 6 mmol/L (8-16); Aspartate Amino Transferase 23 U/L (15-37); Bilirubin,Total 0.5 mg/dL (0.00-1.00); Blood Urea Nitrogen 12 mg/dL (7-18); CRP < 0.5 mg/dL (0.0-0.9); Calcium 9.5 mg/dL (8.5-10.1); Carbon Dioxide 32 mmol/L (21-32); Chloride 101 mmol/L (98-108); Estimated Glomerular Filt Rate > 60; Glucose 171 mg/dL (70-99); Iron 68 ug/dL (50-170); Osmolality Calculated 291 mOsm/kg (285-295); Potassium 4.6 mmol/L (3.5-5.1); Sodium 139 mmol/L (136-145); Total Protein 7.1 g/dL (6.4-8.2); Vitamin B12 824 pg/mL (193-986)
[2022-07-27 13:20] LABS: Hemoglobin A1C 6.5 % (<5.7)
[2022-07-30 19:24] LABS: Vitamin D 25 Hydroxy 37 ng/mL (30-100)
== END 2022-07-27 09:30 | disposition home or self-care (01) ==
LOC: CHSLAB 09:30
PROVIDERS: PCP Nurse Practitioner Family; Visit Provider Nurse Practitioner Family
DX: R73.09 Other abnormal glucose (principal); E53.8 Deficiency of other specified B group vitamins; R42 Dizziness and giddiness; I10 Essential (primary) hypertension; M25.50 Pain in unspecified joint; Z79.899 Other long term (current) drug therapy
CPT/HCPCS: 36415; 80053; 82306; 82607; 83036; 83540; 83735; 85025; 86140

== ENCOUNTER 2022-09-23 13:34 | Emergency (ER) | payer MEDICARE, MEDICAID, SELFPAY ==
[2022-09-23 13:40] VITALS: BP 108/69; PULSE 88; RESP 16; TEMP 36.1; O2SAT 98
[2022-09-23] MEDS: DACRIOSE EYE IRRIGATION 118 ML BOTTLE 10 ML EACH EYE (13:44)
[2022-09-23] MEDS: FLUORESCEIN SOD 1 MG/STRIP EACH EYE (13:45)
[2022-09-23] MEDS: TETRACAINE HCL 0.5% OPHTH SOLN 4 ML BTL 1 DROP EACH EYE (13:45)
--- NOTE | 2022-09-23 13:54 | ED.EYEPROB ---
HPI - Eye Problem General Chief complaint: Eye Problems Stated complaint: right eye f.b. sensation Time Seen by Provider: 09/23/22 13:36 Source: patient Mode of arrival: ambulatory Limitations: no limitations History of Present Illness HPI Narrative: this is 52-year-old female with some foreign body sensation over the last 24hours, the patient does wear contacts and there is no blurry vision no loss of visual acuity does have a foreign body sensation with some mild tearing and redness of the right eye otherwise no nasal congestion left eye is unaffected with no fever chills. chief complaint: foreign body Onset (ago): day(s) Onset description: sudden Duration: constant Location: right eye Eye Symptoms: foreign body sensation Related Data Home Medications Medication Instructions Recorded Confirmed hydrocodone 5 mg-acetaminophen 325 1 tablet PO PRN PRN Back Pain 11/04/21 09/23/22 mg tablet Allergies Allergy/AdvReac Type Severity Reaction Status Date / Time No Known Allergies Allergy Verified 09/23/22 13:56 Review of Systems Review of Systems: All systems reviewed & are unremarkable except as noted in HPI and below PMFSH Past Medical History Medical History Alcoholic Carpal tunnel syndrome, bilateral Chronic back pain Depression Epigastric pain Hot flashes not due to menopause Hypertension Laceration of finger of right hand Nausea Tobacco dependence Surgical History Surgical History History of X3 87,89, and 98 History of carpal tunnel surgery left arm and elbow 2017. Right arm and elbow 2018 Hx of tonsillectomy 1st grade Family History Family History Other Acute myocardial infarction Family history of malignant neoplasm Hypertension Social History Social History Social History: The patient is and her ex- recently . She had 3 children but 1 of her children as an . The patient states that she has been drinking 6 pack a day every day up until the last 2 days. She denies any tobacco abuse. The patient stated she used to use marijuana but pain management told her that she could not use marijuana while getting care from them. The patient is disabled. She does not have a durable power patent prosecution attorney for healthcare. Code status full code Smoking status: Never smoker Alcohol intake: current Drinks per week: 6 Substance use: former Last use: 2020 Spiritual care concerns: No Exam Const: General: healthy appearing, no acute distress and alert HENMT: Head: normal to inspection Eyes: Conjunctivae: conjunctival abnormality Pupils: Equal, round and reactive pupils present EOM: EOMs intact bilaterally Direct Ophthalmoscopy: photophobia Other: Foreign body sensation in the right eye Resp: Effort & Inspection: normal respiratory effort Auscultation: clear to auscultation bilaterally Cardio: Rate: regular rate Rhythm: regular rhythm Skin: General skin exam: normal color Rashes: no rashes Neuro: General: patient oriented x3 Psych: Mental Status: mental status grossly normal Affect: normal affect Course Course Emergency Course: tetracaine was used to numb the right eye and magnifying lens utilized to visualize any foreign body, used a Q-tip after numbing the right eye which did show that there was some system mass care not sure if that was the culprit but did remove some remnants of mascara from the the right eye dextrose was used to irrigate the eye fluorescein strip used and black light did not visualize any corneal abrasion. I did recommend patient not using contacts for approximately 1 week and will instill antibiotic eyedrop swell up patient is here. Procedures FB Removal Eye For
[2022-09-23] MEDS: NEOMYCIN/POLYMYXIN/HYDROCORT 7.5 ML EYE DROPS (*BKC) 1 DROP RIGHT EYE (14:00)
== END 2022-09-23 14:20 | disposition home or self-care (01) ==
LOC: CHSED 14:07
PROVIDERS: Emergency Provider Emergency Medicine; PCP Nurse Practitioner Family
DX: T15.81XA Foreign body in other and multiple parts of external eye, right eye, initial encounter (principal); I10 Essential (primary) hypertension
CPT/HCPCS: 65220; 99283; A9270

== ENCOUNTER 2023-04-05 11:56 | Outpatient (NON) | payer MEDICARE, MEDICAID, SELFPAY | END 2023-04-05 11:57 | disposition home or self-care (01) | LOC: CHSLAB 12:00 | PROVIDERS: Visit Provider Nurse Practitioner Family | DX: Z12.4 Encounter for screening for malignant neoplasm of cervix (principal); Z11.51 Encounter for screening for human papillomavirus (HPV); Z11.8 Encounter for screening for other infectious and parasitic diseases; Z78.0 Asymptomatic menopausal state; Z11.3 Encounter for screening for infections with a predominantly sexual mode of transmission | CPT/HCPCS: 87491; 87591; 87624; 87625; 88175; G0145 ==

== ENCOUNTER 2023-04-25 07:46 | Outpatient (CLI) | payer MEDICARE, MEDICAID, SELFPAY ==
--- NOTE | ~2023-04-25 | MM_ITS ---
EXAMINATION: MM screening [facility] BI w von HISTORY: Screening TECHNIQUE: Craniocaudal and mediolateral oblique 3-D tomosynthesis images were obtained and synthetic 2-D images were generated. CAD analysis was submitted and interpreted. COMPARISON: Comparison to multiple prior studies sequentially, with oldest reviewed study dated 01/24. BREAST PARENCHYMAL COMPOSITION: There are scattered areas of fibroglandular density. FINDINGS: There is no evidence of suspicious mass, calcification, or architectural distortion to sugg est malignancy in either breast. There has been no suspicious interval change. IMPRESSION: 1. No mammographic evidence of malignancy. 2. Recommend routine screening mammography in one year. BI-RADS Category 1: Negative Reviewed, dictated and finalized at location A. AULIC CONTROLS TECHNICIAN
[2023-04-25 08:38] LABS: Basophils Absolute Auto 0.06 K/mm3 (0.00-0.10); Basophils Percent Auto 0.8 % (0.0-1.0); Eosinophils Absolute Auto 0.16 K/mm3 (0.02-0.50); Eosinophils Percent Auto 2.1 % (1.0-6.0); Hematocrit 40.6 % (35.0-49.0); Hemoglobin 13.6 g/dL (12.0-15.0); Immature Granulocyte Absolute 0.02 K/mm3 (0.00-0.00); Immature Granulocyte Percent A 0.3 % (0.0-0.0); Lymphocytes Percent Auto 29.5 % (18.0-42.0); Mean Corpuscular HGB Conc 33.5 g/dL (32.0-36.0); Mean Corpuscular Hemoglobin 30.8 pg (27.0-31.0); Mean Corpuscular Volume 92.1 fL (78.0-102.0); Mean Platelet Volume 9.6 fl (9.2-11.8); Monocytes Absolute Auto 0.58 K/mm3 (0.10-0.90); Monocytes Percent Auto 7.4 % (2.0-11.0); Neutrophils Absolute Auto 4.7 K/mm3 (1.7-7.2); Neutrophils Percent Auto 59.9 % (50.0-70.0); Platelet Count Result 300 K/mm3 (150-420); Red Blood Count 4.41 M/mm3 (4.20-5.40); Red Cell Distribution Width 12.3 % (11.6-14.4); White Blood Count 7.8 K/mm3 (4.8-10.8)
[2023-04-25 08:47] LABS: Hemoglobin A1C 5.4 % (<5.7)
[2023-04-25 09:33] LABS: Alanine Aminotransferase 29 U/L (14-59); Albumin Level 3.6 g/dL (3.4-5.0); Alkaline Phosphatase 141 U/L (46-116); Anion Gap 8 mmol/L (8-16); Aspartate Amino Transferase 18 U/L (15-37); Bilirubin,Total 0.4 mg/dL (0.00-1.00); Blood Urea Nitrogen 13 mg/dL (7-18); Calcium 8.8 mg/dL (8.5-10.1); Carbon Dioxide 30 mmol/L (21-32); Chloride 103 mmol/L (98-108); Cholesterol 202 mg/dL (0-200); Estimated Glomerular Filt Rate > 60; Glucose 99 mg/dL (70-99); HDL Direct 67 mg/dL (40-60); LDL Cholesterol Calculated 125 mg/dL (<130); Osmolality Calculated 292 mOsm/kg (285-295); Potassium 4.4 mmol/L (3.5-5.1); Sodium 141 mmol/L (136-145); Total Protein 6.9 g/dL (6.4-8.2); Triglycerides 49 mg/dL (0-150)
== END 2023-04-25 07:47 | disposition home or self-care (01) ==
PROVIDERS: Family Medicine; PCP Nurse Practitioner Family; Visit Provider Nurse Practitioner Family
DX: I10 Essential (primary) hypertension (principal); E11.9 Type 2 diabetes mellitus without complications; Z12.31 Encounter for screening mammogram for malignant neoplasm of breast
CPT/HCPCS: 36415; 77063; 77067; 80053; 80061; 83036; 85025

== ENCOUNTER 2023-08-16 09:18 | Emergency (ER) | payer MEDICARE, MEDICAID, SELFPAY ==
--- NOTE | ~2023-08-16 | XR_ITS ---
EXAMINATION: XR foot RT min 3V DATE: 08/16/2023 09:59 INDICATION: Right foot injury and pain. TECHNIQUE: 4 views of right foot were obtained. COMPARISON: Right great toe radiographs 04/04/2022 FINDINGS: Bone alignment is normal. No fracture. There is mild osteoarthritis of first metatarsophala ngeal joint, talonavicular joint, and some of the interphalangeal joints. There are enthesophytes at the posterior and plantar aspects of calcaneal tuberosity. IMPRESSION: 1. Mild polyarticular osteoarthritis. Reviewed, dictated and finalized at location A.
[2023-08-16 09:18] VITALS: BP 151/101; PULSE 97; RESP 20; TEMP 36.3; O2SAT 97
--- NOTE | 2023-08-16 10:06 | ED.LOWEXIN ---
HPI - Extremity Injury (Lower) General Chief Complaint: Extremity Injury, Lower Stated Complaint: right foot injury Source: patient Mode of arrival: ambulatory Limitations: no limitations History of Present Illness HPI Narrative: right foot injury occurred with days ago has good range of motion pain level is tolerable with no numbness or tingling. complaint: foot injury Injury: Right: foot ( Mild bruising) Type of Injury: blunt Place: home Severity: mild Relieving factors: immobilization Exacerbating factors: weight bearing, movement and palpation Context: direct blow Related Data Home Medications Medication Instructions Recorded Confirmed hydrocodone 5 mg-acetaminophen 325 1 tablet PO PRN PRN Back Pain 11/04/21 04/05/23 mg tablet Allergies Allergy/AdvReac Type Severity Reaction Status Date / Time No Known Allergies Allergy Verified 08/09/23 08:05 Review of Systems Review of Systems: All systems reviewed & are unremarkable except as noted in HPI and below PMFSH Past Medical History Medical History Alcoholic Carpal tunnel syndrome, bilateral Chronic back pain Depression Epigastric pain Hot flashes not due to menopause Hypertension Laceration of finger of right hand Nausea Tobacco dependence Surgical History Surgical History History of X3 87,89, and 98 History of carpal tunnel surgery left arm and elbow 2017. Right arm and elbow 2018 Hx of tonsillectomy 1st grade Family History Family History Other Acute myocardial infarction Family history of malignant neoplasm Hypertension Social History Social History Social History: The patient is and her ex- recently . She had 3 children but 1 of her children as an infant. The patient states that she has been drinking 6 pack a day every day up until the last 2 days. She denies any tobacco abuse. The patient stated she used to use marijuana but pain management told her that she could not use marijuana while getting care from them. The patient is disabled. She does not have a durable power structural steel trades worker for healthcare. Code status full code Smoking status: Never smoker Alcohol intake: current Drinks per week: 6 Substance use: former Last use: 2020 Spiritual care concerns: No Exam Const: General: healthy appearing and no acute distress Nutritional Appearance: well nourished Orientation/consciousness: patient oriented x3 Limitations: no limitations Resp: Effort & Inspection: normal respiratory effort Auscultation: clear to auscultation bilaterally Cardio: Rate: regular rate Rhythm: regular rhythm GI: GI Palp: Yes Soft to palpation Auscultation: normal bowel sounds Skin: General skin exam: normal color Wounds: wounds noted Neuro: General: patient oriented x3, moves all extremities and no meningeal signs Extrem: Other: tenderness on lateral aspect of her right foot Course Course Emergency Course: x-ray review shows no acute fractures Vital Signs Vital signs: Vital Signs Temperature 36.3 C L 08/16/23 09:18 Pulse Rate 97 08/16/23 09:18 Respiratory Rate 20 08/16/23 09:18 Blood Pressure 151/101 H 08/16/23 09:18 Pulse Oximetry 97 08/16/23 09:18 Oxygen Delivery Room Air 08/16/23 09:18 Temperature 36.3 C L 08/16/23 09:18 Pulse Rate 97 08/16/23 09:18 Respiratory Rate 20 08/16/23 09:18 Blood Pressure 151/101 H 08/16/23 09:18 Pulse Oximetry 97 08/16/23 09:18 Oxygen Delivery Room Air 08/16/23 09:18 Critical Care Time Critical Care Time Critical Care Time: No Discharge Plan Discharge Clinical Impression: Foot sprain Qualifiers: Encounter type: initial encounter Laterality: right Qual
[2023-08-16 10:13] VITALS: BP 123/80; PULSE 87; RESP 20; O2SAT 97
== END 2023-08-16 10:13 | disposition home or self-care (01) ==
PROVIDERS: Emergency Provider Emergency Medicine; PCP Nurse Practitioner Family
DX: S93.601A Unspecified sprain of right foot, initial encounter (principal); T14.90XA Injury, unspecified, initial encounter; I10 Essential (primary) hypertension; F32.A Depression, unspecified
CPT/HCPCS: 73630; 99283

== ENCOUNTER 2023-08-27 13:43 | Outpatient (CLI) | payer MEDICARE, MEDICAID, SELFPAY ==
--- NOTE | ~2023-08-27 | XR_ITS ---
EXAM: XR foot LT min 3V DATE: 08/27/2023 14:03 HISTORY: Bunion of LT foot, lateral. Pain, getting worse . COMPARISON: None available. FINDINGS: Decreased mineralization. No fracture or dislocation. No lytic or blastic lesion. Mild france lux valgus. Moderate degenerative change at the first MTP joint with overlying soft tissue swelling. Achilles and plantar enthesopathy. No erosion or periosteal change. Soft tissues within normal limits . IMPRESSION: Osteopenia. Moderate first MTP joint osteoarthritis with mild hallux valgus. Reviewed, dictated and finalized at location K. IMPRESSION: Osteopenia. Moderate first MTP joint osteoarthritis with mild hallu x valgus.
== END 2023-08-27 13:44 | disposition home or self-care (01) ==
LOC: CHSLAB 13:45
PROVIDERS: PCP Nurse Practitioner Family; Visit Provider Nurse Practitioner Family
DX: M21.612 Bunion of left foot (principal); M85.89 Other specified disorders of bone density and structure, multiple sites; M19.072 Primary osteoarthritis, left ankle and foot
CPT/HCPCS: 73630

== ENCOUNTER 2023-09-17 08:53 | Outpatient (CLI) | payer MEDICARE, MEDICAID, SELFPAY ==
--- NOTE | ~2023-09-17 | XR_ITS ---
EXAMINATION: XR chest 2V DATE: 09/17/2023 09:38 INDICATION: Encounter for preprocedural examination TECHNIQUE: PA and lateral views of the chest were obtained. COMPARISON: Chest radiograph dated 03/04/2018 FINDINGS: The lungs remain clear with no focal airspace opacities, pulmonary edema, pleural effusion or pneumot horax. The cardiomediastinal silhouette is normal. Mild thoracic spondylosis. IMPRESSION: 1. No acute cardiopulmonary disease. Reviewed, dictated and finalized at location B.
--- NOTE | ~2023-09-17 | XR_ITS ---
EXAMINATION:XR cervical spine 4-5V DATE: 09/17/2023 09:38 INDICATION: Neck pain TECHNIQUE: AP, lateral, lateral swimmers and odontoid views of the cervical spine are provided. COMPARISON: None FINDINGS: Straightening of the normal cervical lordosis. Odontoid is intact. Normal atlantoaxial interval. Alcides tebral body heights are normal. Mild disc height loss and mild bilateral uncovertebral osteoarthritis at C5-C6 and C6-C7. There is also multilevel mild bilateral cervical facet osteoarthritis. Preverteb ral soft tissues are normal. IMPRESSION: 1. Mild cervical spondylosis. Reviewed, dictated and finalized at location B.
--- NOTE | 2023-09-17 09:10 | ECG_ITS ---
Test Date: 2023-09-17 09:46:54 Measurements Intervals [place] Rate: 70 P: 55 AR: 128 QRS: 44 QRSD: 96 T: 49 QT: 371 QTc: 402 Interpretive Statements SINUS RHYTHM LOW QRS VOLTAGE IN PRECORDIAL LEADS [QRS DEFLECTION < 1.0 mV IN CHEST LEADS] No previous ECG available for comparison Electronically Signed On 09-18-2023 13:20:27 CDT by Ethel Lentz M.D.
[2023-09-17 09:19] LABS: Basophils Absolute Auto 0.06 K/mm3 (0.00-0.10); Basophils Percent Auto 1.1 % (0.0-1.0); Eosinophils Absolute Auto 0.13 K/mm3 (0.02-0.50); Eosinophils Percent Auto 2.3 % (1.0-6.0); Hematocrit 40.6 % (35.0-49.0); Hemoglobin 13.8 g/dL (12.0-15.0); Immature Granulocyte Absolute 0.02 K/mm3 (0.00-0.00); Immature Granulocyte Percent A 0.4 % (0.0-0.0); Lymphocytes Absolute Auto 1.99 K/mm3 (1.10-4.50); Lymphocytes Percent Auto 35.2 % (18.0-42.0); Mean Corpuscular Hemoglobin 32.5 pg (27.0-31.0); Mean Corpuscular Volume 95.8 fL (78.0-102.0); Mean Platelet Volume 9.8 fl (9.2-11.8); Monocytes Absolute Auto 0.45 K/mm3 (0.10-0.90); Neutrophils Absolute Auto 3.01 K/mm3 (1.70-7.20); Platelet Count Result 277 K/mm3 (150-420); Red Blood Count 4.24 M/mm3 (4.20-5.40); Red Cell Distribution Width 11.8 % (11.6-14.4); White Blood Count 5.7 K/mm3 (4.8-10.8)
[2023-09-17 09:20] LABS: Appearance Urine Clear (Clear); Bilirubin Urine Negative (Negative); Blood Urine Negative (Negative); Color Urine Yellow (Yellow); Glucose Urine UA Negative (Negative); Ketones Urine Negative (Negative); Leukocyte Esterase Ur 1+ LEU/UL (Negative); Nitrate Urine Negative (Negative); Protein Urine Negative (Negative); Urobilinogen Urine 0.2 mg/dL (0.2-1.0)
[2023-09-17 09:28] LABS: Hemoglobin A1C 5.4 % (<5.7)
[2023-09-17 09:30] LABS: MALB Creatinine Ratio 11.1 mg/g (0-30); Microalbumin Urine Random < 13.0 mg/L
[2023-09-17 09:32] LABS: Add Urine Microscopic? YES; Bacteria Urine None seen /hpf; Mucus Urine Few /lpf; RBC Urine None seen /hpf (0-2); Squamous Epithelial Cell Urine Few /hpf (Few); WBC Urine 0-3 /hpf (0-3)
[2023-09-17 09:55] LABS: Alanine Aminotransferase 27 U/L (14-59); Albumin Level 3.9 g/dL (3.4-5.0); Alkaline Phosphatase 127 U/L (46-116); Anion Gap 7 mmol/L (4-12); Aspartate Amino Transferase 20 U/L (15-37); Bilirubin,Total 0.5 mg/dL (0.00-1.00); Blood Urea Nitrogen 12 mg/dL (7-18); Calcium 9.4 mg/dL (8.5-10.1); Carbon Dioxide 31 mmol/L (21-32); Chloride 101 mmol/L (98-108); Estimated Glomerular Filt Rate > 60; Glucose 97 mg/dL (70-99); Osmolality Calculated 287 mOsm/kg (285-295); Potassium 4.3 mmol/L (3.5-5.1); Sodium 139 mmol/L (136-145)
== END 2023-09-17 08:54 | disposition home or self-care (01) ==
LOC: CHSLAB 08:55
PROVIDERS: PCP Nurse Practitioner Family; Visit Provider Nurse Practitioner Family
DX: Z01.818 Encounter for other preprocedural examination (principal); E11.9 Type 2 diabetes mellitus without complications; Z87.898 Personal history of other specified conditions; M54.2 Cervicalgia; R82.90 Unspecified abnormal findings in urine; M43.02 Spondylolysis, cervical region
CPT/HCPCS: 36415; 71046; 72050; 80053; 81001; 82043; 83036; 85025; 87086; 93005

== ENCOUNTER 2023-09-21 11:49 | Outpatient (CLI) | payer MEDICARE, MEDICAID, SELFPAY ==
--- NOTE | ~2023-09-21 | CT_ITS ---
EXAMINATION: CT abdomen pelvis wo con DATE: 09/21/2023 12:08 INDICATION: Right flank pain. TECHNIQUE: Computed tomography (CT) of the abdomen and pelvis was performed without intravenous contr ast. Automated exposure control and iterative reconstruction technique were employed. The dose-length product was 267.23 mGy-cm. COMPARISON: CT abdomen and pelvis 11/08/2021 FINDINGS: The visualized portions of lung bases demonstrate mild scarring in paraspinal right lower l obe. No pleural effusion. The heart size is normal. No pericardial effusion. There is diffuse hepatic steatosis. The gallbladder, spleen, pancreas, adrenal glands, and kidneys are normal. There is diver ticulosis of the colon without evidence of diverticulitis. There are no dilated loops of bowel. The a ppendix is normal. There are no pathologically enlarged lymph nodes. There is no free intraperitoneal fluid. There is mild lumbar spondylosis. IMPRESSION: 1. Diffuse hepatic steatosis. Reviewed, dictated and finalized at location A.
[2023-09-21 12:26] LABS: Appearance Urine Clear (Clear); Bilirubin Urine Negative (Negative); Blood Urine Negative (Negative); Color Urine Light Yellow (Yellow); Glucose Urine UA Negative (Negative); Ketones Urine Negative (Negative); Leukocyte Esterase Ur Negative (Negative); Nitrate Urine Negative (Negative); Protein Urine Negative (Negative); Urobilinogen Urine 0.2 mg/dL (0.2-1.0); pH Urine 5.5 (5.0-8.0)
[2023-09-21 13:01] LABS: Hematocrit 39.4 % (35.0-49.0); Hemoglobin 13.7 g/dL (12.0-15.0); Mean Corpuscular HGB Conc 34.8 g/dL (32-36); Mean Corpuscular Hemoglobin 32.9 pg (27.0-31.0); Mean Corpuscular Volume 94.5 fL (78.0-102.0); Mean Platelet Volume 9.5 fl (9.2-11.8); Platelet Count Result 299 K/mm3 (150-420); Red Blood Count 4.17 M/mm3 (4.20-5.40); Red Cell Distribution Width 11.8 % (11.6-14.4)
[2023-09-21 13:31] LABS: Alanine Aminotransferase 28 U/L (14-59); Albumin Level 3.8 g/dL (3.4-5.0); Alkaline Phosphatase 124 U/L (46-116); Anion Gap 6 mmol/L (4-12); Aspartate Amino Transferase 19 U/L (15-37); Bilirubin,Total 0.5 mg/dL (0.00-1.00); Blood Urea Nitrogen 10 mg/dL (7-18); Calcium 9.6 mg/dL (8.5-10.1); Carbon Dioxide 30 mmol/L (21-32); Chloride 101 mmol/L (98-108); Estimated Glomerular Filt Rate > 60; Glucose 102 mg/dL (70-99); Lipase 56 U/L (16-77); Osmolality Calculated 283 mOsm/kg (285-295); Potassium 4.3 mmol/L (3.5-5.1); Sodium 137 mmol/L (136-145); Total Protein 6.9 g/dL (6.4-8.2)
[2023-09-21 13:32] LABS: CRP < 0.5 mg/dL (0.0-0.9)
[2023-09-21 13:45] LABS: Add Urine Microscopic? NO
== END 2023-09-21 11:50 | disposition home or self-care (01) ==
PROVIDERS: PCP Nurse Practitioner Family; Visit Provider Nurse Practitioner Family
DX: R10.9 Unspecified abdominal pain (principal); R39.9 Unspecified symptoms and signs involving the genitourinary system; K76.0 Fatty (change of) liver, not elsewhere classified
CPT/HCPCS: 36415; 74176; 80053; 81003; 83690; 85027; 86140; 87086

== ENCOUNTER 2023-10-04 10:16 | Outpatient (CLI) | payer MEDICARE, MEDICAID, SELFPAY ==
--- NOTE | ~2023-10-04 | MR_ITS ---
MRI of the cervical spine Clinical History: Neck pain, arm numbness Technique: Axial T2-weighted and gradient images, and sagittal T1-weighted, T2-weighted, and STIR lyly ges were acquired. Findings: There is mild reversal of the normal cervical lordosis. No fracture or subluxation seen. No suspicious bone marrow signal reality evident. At C2-C3, there is no disc bulge or herniation. There is minimal facet arthropathy. No central canal stenosis, cord compression, or neural foraminal narrowing. At C3-C4, there is bilateral facet arthropathy, right worse than left. No spinal canal stenosis, cord compression, or definite neural foraminal narrowing. At C4-C5, there is no disc bulge or herniation. No spinal canal stenosis, cord compression, or defini te neural foraminal narrowing. At C5-C6, there is disc ossify complex with mild canal stenosis and minimal flattening the ventral co rd. There is probable bilateral neural foraminal narrowing. At C6-C7, there is disc ossify complex with moderate canal stenosis and probable mild cord compressio n. There is bilateral neural foraminal narrowing. No abnormal signal seen in the spinal cord. Paravertebral soft tissues are unremarkable. Impression: Moderate to advanced degenerative spondylosis at C5-C6 and C6-C7, as above. Reviewed, dictated and finalized at [facility]. Impression: Moderate to advanced degenerative spondylosis at C5-C6 and C6-C7, as above.
== END 2023-10-04 10:17 | disposition home or self-care (01) ==
LOC: CHSIMG 10:17
PROVIDERS: PCP Nurse Practitioner Family; Visit Provider Anesthesiology Pain Medicine
DX: M54.12 Radiculopathy, cervical region (principal); M43.02 Spondylolysis, cervical region
CPT/HCPCS: 72141

== ENCOUNTER 2023-10-04 14:10 | Outpatient (RCR) | payer MEDICARE, MEDICAID, SELFPAY ==
--- NOTE | 2023-10-04 15:52 | OPREHPOC ---
Outpatient Therapy Plan of Care This is a Multidisciplinary Plan of Care that may contain components documented by all disciplines (PT, OT, and ST.) PT Problem 1 PT Problem #1 Knowledge Deficit PT Goal 1 Goal The patient will be independent in a home exercise program. Target Visit 4 PT Problem 2 PT Problem #2 Pain PT Goal 1 Goal The patient will report no greater than 4/10 neck pain with ADLs. Target Visit 8 PT Goal 2 Goal The patient will report the ability to drive, lift , and move her head in all directions to return to previous level of function with pain rated 2/10 or less. Target Visit 18 PT Problem 3 PT Problem #3 Impaired Range of Motion PT Goal 1 Goal The patient will improve cervical extension AROM to 25 degrees to improve ability to wash her hair. Target Visit 8 PT Problem 4 PT Problem #4 Impaired Functional Mobil PT Goal 1 Goal The patient will lift 15# from waist to shoulder with 2/10 or less neck and left UE pain to return to light lifting for household tasks. Target Visit 18
--- NOTE | 2023-10-04 15:52 | PTOPEVAL1 ---
Assessment and note entered by Michelle Bangura, PT Evaluation Information Assessment Status Evaluation ICD-10 Condition Codes (PT) M54.13 Onset 07/25/23 Subjective Information Irina Blanco reports she woke up with pain on the left side of her neck and could not move her head forward and backward on 07/25/23. She does not recall an injury or change in activity prior to the onset of the pain. She reports the pain has worsened and goes down to the left shoulder blade to the back of the arm and down the inside of the forearm to all her fingers. She also notes numbness and tingling in the left hand. She has a history of carpal tunnel release and ulnar nerve transposition bilaterally in 2015. She thought it was her carpal or cubital tunnel that was flaring up but when she went to the doctor she was told it was coming from her neck. She had a CT scan that showed irritation and deterioration in her neck. She was then referred for a MRI which she had performed earlier today. She also followed up with her pain management doctor who referred her to PT . She notes difficulty tilting her head back to finish drinks and wash her hair. She also has difficulty driving and lifting. Reported Pain Level Pain Score 8: Self Report Assessment PT Clinical Summary Irina Blanco presents with cervical radiculopathy affecting the left UE. She is having difficulty moving her head back which leads to difficulty washing her hair and finishing drinks; turning her head leading to difficulty driving; and pain and tingling in her left UE leading to difficulty lifting. She is demonstrating a positive left cervical quadrant test and relief of symptoms with cervical traction indicating nerve root impingement. She also demonstrates decreased and painful cervical AROM and tension and tenderness in left cervical and upper thoracic musculature. She will benefit from skilled PT to address these limitations and return her to her PLOF. Plan of Care Interventions Electrical Stimulation,Hot Pack/Cold Pack,Manual Therapy,Mechanical Traction,Neuro Re-education, Patient/Caregiver Educati,Therapeutic Activities, Therapeutic Exercise PT Services Indicated Yes Treatment Frequency and 3 times a week for 18 visits Duration
--- NOTE | 2023-10-23 16:17 | OPREHPOC ---
Outpatient Therapy Plan of Care This is a Multidisciplinary Plan of Care that may contain components documented by all disciplines (PT, OT, and ST.) PT Problem 1 PT Problem #1 Knowledge Deficit PT Goal 1 Goal The patient will be independent in a home exercise program. Target Visit 4 Progress Met Comment Continue to progress home exercises PT Problem 2 PT Problem #2 Pain PT Goal 1 Goal The patient will report no greater than 4/10 neck pain with ADLs. Target Visit 8 Comment progress towards (3/10) PT Goal 2 Goal The patient will report the ability to drive, lift , and move her head in all directions to return to previous level of function with pain rated 2/10 or less. Target Visit 18 Progress Not Met Comment continue PT Problem 3 PT Problem #3 Impaired Range of Motion PT Goal 1 Goal The patient will improve cervical extension AROM to 25 degrees to improve ability to wash her hair. Target Visit 8 Progress Not Met Comment progress towards (15 degrees), continue PT Problem 4 PT Problem #4 Impaired Functional Mobil PT Goal 1 Goal The patient will lift 15# from waist to shoulder with 2/10 or less neck and left UE pain to return to light lifting for household tasks. Target Visit 18 Progress Not Met Comment continue
--- NOTE | 2023-10-23 16:17 | PTOPPROG ---
Assessment and note entered by Michelle Bangura, PT Evaluation Information Assessment Status Progress ICD-10 Condition Codes (PT) M54.13 Onset 07/25/23 Subjective Information Irina Blanco reports she is noting less symptoms since she began PT. She is still having tingling in the left arm but it is much less than it was initially. She also notes improved cervical mobility. She will see her pain management doctor tomorrow to get an injection in her lower back. She would like to continue PT for her neck as she is getting better but she still has some symptoms. She continues to have increased pain and tingling in the left arm with too much yard work or housework. She is sleeping better now. Assessment PT Clinical Summary Irina Blanco has completed 9 skilled PT visits for cervical pain and radiculopathy. She is reporting less tingling and improved mobility since initiating PT. She does still have symptoms and would like to continue skilled PT to further reduce symptoms. She objectively demonstrates improved cervical AROM in all planes and less tenderness. She continues to have limitations with cervical extension, left cervical rotation, and left cervical lateral flexion AROM as well as posture limitations and continued positive findings with the left cervical quadrant test. She is progressing toward meeting goals well and will continue to benefit from skilled PT to further address these limitations. Plan of Care Interventions Electrical Stimulation,Hot Pack/Cold Pack,Manual Therapy,Mechanical Traction,Patient/Caregiver Educati,Therapeutic Exercise PT Services Indicated Yes Treatment Frequency and Continue skilled PT 2 times a week for 9 more Duration visits These treatments will address the objective and functional deficits as defined above. The patient will be advanced safely and appropriately in order for the patient to progress towards his/her prior level of function. Additional exercises will be introduced and as well as a comprehensive home exercise program upon discharge, if needed, ?to ensure carryover of functional gains achieved in the clinic. This treatment plan has been reviewed and agreement upon by the patient.
--- NOTE | 2023-11-12 10:05 | PCPTNOTE ---
Cancelled session due to a migraine.
--- NOTE | 2023-11-13 10:11 | PCPTNOTE ---
Patient called & cancelled scheduled appointment this date due to [illness]
--- NOTE | 2023-11-21 07:18 | PCPTNOTE ---
Cancelled session. Reports she has a family thing.
== END 2024-01-02 23:59 | disposition home or self-care (01) ==
LOC: CHSPT 14:10
PROVIDERS: Visit Provider Anesthesiology Pain Medicine
DX: M54.12 Radiculopathy, cervical region (principal)
CPT/HCPCS: 97012; 97110; 97140; 97150; 97161; 97530

== ENCOUNTER 2024-02-27 12:55 | Outpatient (CLI) | payer MEDICARE, MEDICAID, SELFPAY ==
[2024-02-27 13:09] LABS: Basophils Absolute Auto 0.06 K/mm3 (0.00-0.10); Eosinophils Absolute Auto 0.09 K/mm3 (0.02-0.50); Eosinophils Percent Auto 1.5 % (1.0-6.0); Hematocrit 39.9 % (35.0-49.0); Hemoglobin 13.4 g/dL (12.0-15.0); Immature Granulocyte Absolute 0.02 K/mm3 (0.00-0.00); Immature Granulocyte Percent A 0.3 % (0.0-0.0); Lymphocytes Percent Auto 35.9 % (18.0-42.0); Mean Corpuscular HGB Conc 33.6 g/dL (32-36); Mean Corpuscular Hemoglobin 30.7 pg (27.0-31.0); Mean Corpuscular Volume 91.3 fL (78.0-102.0); Mean Platelet Volume 9.5 fl (9.2-11.8); Monocytes Absolute Auto 0.48 K/mm3 (0.10-0.90); Monocytes Percent Auto 7.8 % (2.0-11.0); Neutrophils Absolute Auto 3.28 K/mm3 (1.70-7.20); Neutrophils Percent Auto 53.5 % (50.0-70.0); Platelet Count Result 302 K/mm3 (150-420); Red Blood Count 4.37 M/mm3 (4.20-5.40); Red Cell Distribution Width 11.8 % (11.6-14.4); White Blood Count 6.1 K/mm3 (4.8-10.8)
[2024-02-27 13:22] LABS: Hemoglobin A1C 5.3 % (<5.7)
[2024-02-27 13:40] LABS: Alanine Aminotransferase 24 U/L (14-59); Albumin Level 4.1 g/dL (3.4-5.0); Alkaline Phosphatase 131 U/L (46-116); Anion Gap 5 mmol/L (4-12); Aspartate Amino Transferase 19 U/L (15-37); Bilirubin,Total 0.7 mg/dL (0.00-1.00); Blood Urea Nitrogen 9 mg/dL (7-18); Calcium 9.8 mg/dL (8.5-10.1); Carbon Dioxide 32 mmol/L (21-32); Chloride 100 mmol/L (98-108); Cholesterol 258 mg/dL (0-200); Estimated Glomerular Filt Rate > 60; Glucose 98 mg/dL (70-99); HDL Direct 83 mg/dL (40-60); LDL Cholesterol Calculated 167 mg/dL (<130); Osmolality Calculated 282 mOsm/kg (285-295); Potassium 4.4 mmol/L (3.5-5.1); Sodium 137 mmol/L (136-145); Total Protein 6.9 g/dL (6.4-8.2); Triglycerides 40 mg/dL (0-150)
[2024-02-29 03:13] LABS: Vitamin D 25 Hydroxy 25 ng/mL (30-100)
== END 2024-02-27 12:56 | disposition home or self-care (01) ==
PROVIDERS: PCP Nurse Practitioner Family; Visit Provider Nurse Practitioner Family
DX: E11.9 Type 2 diabetes mellitus without complications (principal); Z13.6 Encounter for screening for cardiovascular disorders; I10 Essential (primary) hypertension; Z79.899 Other long term (current) drug therapy
CPT/HCPCS: 36415; 80053; 80061; 82306; 83036; 85025

== ENCOUNTER 2024-04-16 00:38 | Day surgery (SDC) | payer MEDICARE, SELFPAY ==
[2024-04-01 10:42] VITALS: BMI 27.1
[2024-04-16 09:40] VITALS: BP 119/83; PULSE 86; RESP 18; TEMP 35.9; O2SAT 99
[2024-04-16] MEDS: LACTATED RINGERS 1,000 ML 150 ML IV CONT (09:50)
[2024-04-16 09:52] LABS: Glucose Point of Care 94 mg/dl (65-105)
--- NOTE | 2024-04-16 10:05 | WPDANESEPP ---
Anes - Eval Pre Procedure Procedure: Operation Date: 04/16/24 11:00 Proposed Procedures p Dora - Sarkis Yung MD Date/Time: 04/16/24 10:05 Surgeon: [email or web address] Preop Diagnosis: personal history polyps Pre Op Diagnosis: fecal abn Patient Data Age: 58 Gender: F Height: 1.52 m Weight: 62.9 kg Last Vital Signs Temp 96.7 F L 04/16/24 09:40 Pulse 86 04/16/24 09:40 Resp 18 04/16/24 09:40 BP 119/83 04/16/24 09:40 Pulse Ox 99 04/16/24 09:40 O2 Del Method Room Air 04/16/24 09:40 Allergies Allergy/AdvReac Type Severity Reaction Status Date / Time No Known Allergies Allergy Verified 04/16/24 09:35 Home Medications ?Medication ?Instructions ?Recorded ?Confirmed ?Type hydrocodone 5 mg-acetaminophen 325 1 tablet PO PRN PRN Back Pain 11/04/21 04/01/24 History mg tablet blood-glucose meter,continuous #1 ea 07/31/22 02/28/24 Rx (Dexcom G7 Target Man) blood-glucose sensor (Dexcom G7 #1 ea 07/31/22 02/28/24 Rx Sensor device) blood sugar diagnostic (Contour #70 ea 08/10/22 02/28/24 Rx Next Test Strips) lancets 33 gauge (BD Ultra Fine #100 ea 08/10/22 02/28/24 Rx Lancets) blood sugar diagnostic #100 ea 09/27/22 02/28/24 Rx naproxen 500 mg tablet 500 mg PO BID PRN pain #14 tabs 08/16/23 04/01/24 Rx tirzepatide 5 mg/0.5 mL 5 mg (0.5 mL) subcut WEEKLY #6 mL 09/13/23 04/16/24 Rx subcutaneous pen injector (Melissa) hydroxyzine HCl 25 mg tablet See Rx Instructions .Route 11/12/23 04/16/24 Rx .COMPLEX #270 tabs lisinopril 20 mg tablet See Rx Instructions .Route 11/20/23 04/16/24 Rx .COMPLEX #90 tabs pregabalin 75 mg capsule (Lyrica) 75 mg PO BID #60 caps 02/19/24 04/16/24 Rx duloxetine 30 mg capsule,delayed See Rx Instructions .Route 02/20/24 04/16/24 Rx release .COMPLEX #90 caps fluticasone propionate 50 See Rx Instructions .Route 02/25/24 04/16/24 Rx mcg/actuation nasal .COMPLEX #16 mL spray,suspension meloxicam 15 mg tablet See Rx Instructions .Route 02/25/24 04/16/24 Rx .COMPLEX #90 tabs bisacodyl 5 mg tablet 5 mg PO QHS #4 tabs 02/28/24 04/01/24 Rx polyethylene glycol 3350 17 17 g PO DAILY #238 grams 02/28/24 04/01/24 Rx gram/dose oral powder (Miralax) hydrochlorothiazide 12.5 mg tablet See Rx Instructions .Route 03/13/24 04/16/24 Rx .COMPLEX #90 tabs valacyclovir 500 mg tablet See Rx Instructions .Route 03/13/24 04/01/24 Rx .COMPLEX #20 tabs pantoprazole 40 mg tablet,delayed See Rx Instructions .Route 04/16/24 04/16/24 Rx release .COMPLEX #30 tabs Laboratory Tests 04/16/24 09:49 POC Capillary Glucose 94 mg/dl (65-105) EC09/17/23 SR 70 Patient hx anesthesia problems: none Family hx anesthesia problems: none Results Review: All pre-operative results and documents have been reviewed as part of the pre-operative evaluation. [facility] Past Medical History Medical History Alcoholic Nausea Epigastric pain Hot flashes not due to menopause Laceration of finger of right hand Tobacco dependence Carpal tunnel syndrome, bilateral Depression Chronic back pain Hypertension Surgical History Surgical History History of carpal tunnel surgery left arm and elbow 2017. Right arm and elbow 2018 Hx of tonsillectomy 1st grade History of X3 87,89, and 98 Family History Family History Other Acute myocardial infarction Family history of malignant neoplasm Hypertension Social History Social History Social History: The patient is and her ex- recently . She had 3 children but 1 of her children as an . The patient states that she has been drinking 6 pack a day every day up until the last 2 days. She denies any tobacco abuse. The patient stated she used to use marijuana but pain management told her that she could not use marijuana while getting care from them. The patient is disabled. She does not have a durable power deputy county attorney for healthcare. Code status full code Smoking status: Never smoker Alcohol intake: current Drinks per week: 6 Substance use: former Last use: 2020 Spiritual care concerns: No Exam Day of Procedure 04/16/24 10:05
--- NOTE | 2024-04-16 10:55 | P.HP_ITS ---
H&P: HPI History of Present Illness Date/Time: 04/16/24 10:55 Chief Complaint: Screening colonoscopy Narrative: This is the patient's first colonoscopy. There are no GI symptoms and there is no family history of colorectal cancer. Review of Systems Review of Systems: All systems reviewed & are unremarkable except as noted in HPI and below PMFSH Past Medical History Medical History Alcoholic Nausea Epigastric pain Hot flashes not due to menopause Laceration of finger of right hand Tobacco dependence Carpal tunnel syndrome, bilateral Depression Chronic back pain Hypertension Surgical History Surgical History History of carpal tunnel surgery left arm and elbow 2017. Right arm and elbow 2018 Hx of tonsillectomy 1st grade History of X3 87,89, and 98 Family History Family History Other Acute myocardial infarction Family history of malignant neoplasm Hypertension Social History Social History Social History: The patient is and her ex- recently . She had 3 children but 1 of her children as an . The patient states that she has been drinking 6 pack a day every day up until the last 2 days. She denies any tobacco abuse. The patient stated she used to use marijuana but pain management told her that she could not use marijuana while getting care from them. The patient is disabled. She does not have a durable power disability attorney for healthcare. Code status full code Smoking status: Never smoker Alcohol intake: current Drinks per week: 6 Substance use: former Last use: 2020 Spiritual care concerns: No Meds Home Medications and Allergies Home Medications ?Medication ?Instructions ?Recorded ?Confirmed ?Type hydrocodone 5 mg-acetaminophen 325 1 tablet PO PRN PRN Back Pain 11/04/21 04/01/24 History mg tablet blood-glucose meter,continuous #1 ea 07/31/22 02/28/24 Rx (Dexcom G7 Trade Specialist) blood-glucose sensor (Dexcom G7 #1 ea 07/31/22 02/28/24 Rx Sensor device) blood sugar diagnostic (Contour #70 ea 08/10/22 02/28/24 Rx Next Test Strips) lancets 33 gauge (BD Ultra Fine #100 ea 08/10/22 02/28/24 Rx Lancets) blood sugar diagnostic #100 ea 09/27/22 02/28/24 Rx naproxen 500 mg tablet 500 mg PO BID PRN pain #14 tabs 08/16/23 04/01/24 Rx tirzepatide 5 mg/0.5 mL 5 mg (0.5 mL) subcut WEEKLY #6 mL 09/13/23 04/16/24 Rx subcutaneous pen injector (Melissa) hydroxyzine HCl 25 mg tablet See Rx Instructions .Route 11/12/23 04/16/24 Rx .COMPLEX #270 tabs lisinopril 20 mg tablet See Rx Instructions .Route 11/20/23 04/16/24 Rx .COMPLEX #90 tabs pregabalin 75 mg capsule (Lyrica) 75 mg PO BID #60 caps 02/19/24 04/16/24 Rx duloxetine 30 mg capsule,delayed See Rx Instructions .Route 02/20/24 04/16/24 Rx release .COMPLEX #90 caps fluticasone propionate 50 See Rx Instructions .Route 02/25/24 04/16/24 Rx mcg/actuation nasal .COMPLEX #16 mL spray,suspension meloxicam 15 mg tablet See Rx Instructions .Route 02/25/24 04/16/24 Rx .COMPLEX #90 tabs bisacodyl 5 mg tablet 5 mg PO QHS #4 tabs 02/28/24 04/01/24 Rx polyethylene glycol 3350 17 17 g PO DAILY #238 grams 02/28/24 04/01/24 Rx gram/dose oral powder (Miralax) hydrochlorothiazide 12.5 mg tablet See Rx Instructions .Route 03/13/24 04/16/24 Rx .COMPLEX #90 tabs valacyclovir 500 mg tablet See Rx Instructions .Route 03/13/24 04/01/24 Rx .COMPLEX #20 tabs pantoprazole 40 mg tablet,delayed See Rx Instructions .Route 04/16/24 04/16/24 Rx release .COMPLEX #30 tabs Allergies Allergy/AdvReac Type Severity Reaction Status Date / Time No Known Allergies Allergy Verified 04/16/24 09:35 Vital Signs Vital Signs - 24 hr 04/16/24 09:40 Temperature 96.7 F L Pulse Rate 86 Respiratory Rate 18 Blood Pressure 119/83 Pulse Oximetry 99 Oxygen Delivery Room Air Exam Const: General: cooperative and healthy appearing Resp: Effort & Inspection: normal respiratory effort and able to speak in complete sentences Auscultation: clear to auscultation bilaterally Cardio: Rate: regular rate Rhythm: regular rhythm GI: Inspection: normal to inspection GI Palp: No No hepatosplenomegaly present Auscultation: normal bowel sounds Rectal Exam: deferred Skin: General skin exam: normal color Psych: Appearance: grossly normal Mental Status: mental status grossly normal Assessment and Plan Assessment and plan (1) Positive colorectal cancer screening using Cologuard test: Code(s): R19.5 - Other fecal abnormalities Status: Acute Assessment and Plan: The patient is deemed a good candidate for the procedure. Consent signed. Will proceed.
--- NOTE | 2024-04-16 11:09 | P.PNAN_ITS ---
Anes - Initial Pre Proc Eval Procedure: Operation Date: 04/16/24 11:00 Proposed Procedures p Colonoscopy - Sarkis Yung MD Date/Time: 04/16/24 11:09 Surgeon: Sarkis Yung MD Pre Op Diagnosis: fecal abn Patient Data Age: 58 Gender: F Height: 1.52 m Weight: 62.9 kg Last Vital Signs Temp 35.9 C L 04/16/24 09:40 Pulse 86 04/16/24 09:40 Resp 18 04/16/24 09:40 BP 119/83 04/16/24 09:40 Pulse Ox 99 04/16/24 09:40 O2 Del Method Room Air 04/16/24 09:40 Allergies Allergy/AdvReac Type Severity Reaction Status Date / Time No Known Allergies Allergy Verified 04/16/24 09:35 Home Medications ?Medication ?Instructions ?Recorded ?Confirmed ?Type hydrocodone 5 mg-acetaminophen 325 1 tablet PO PRN PRN Back Pain 11/04/21 04/01/24 History mg tablet blood-glucose meter,continuous #1 ea 07/31/22 02/28/24 Rx (Dexcom G7 Assistant Hvac Mechanic) blood-glucose sensor (Dexcom G7 #1 ea 07/31/22 02/28/24 Rx Sensor device) blood sugar diagnostic (Contour #70 ea 08/10/22 02/28/24 Rx Next Test Strips) lancets 33 gauge (BD Ultra Fine #100 ea 08/10/22 02/28/24 Rx Lancets) blood sugar diagnostic #100 ea 09/27/22 02/28/24 Rx naproxen 500 mg tablet 500 mg PO BID PRN pain #14 tabs 08/16/23 04/01/24 Rx tirzepatide 5 mg/0.5 mL 5 mg (0.5 mL) subcut WEEKLY #6 mL 09/13/23 04/16/24 Rx subcutaneous pen injector (Melissa) hydroxyzine HCl 25 mg tablet See Rx Instructions .Route 11/12/23 04/16/24 Rx .COMPLEX #270 tabs lisinopril 20 mg tablet See Rx Instructions .Route 11/20/23 04/16/24 Rx .COMPLEX #90 tabs pregabalin 75 mg capsule (Lyrica) 75 mg PO BID #60 caps 02/19/24 04/16/24 Rx duloxetine 30 mg capsule,delayed See Rx Instructions .Route 02/20/24 04/16/24 Rx release .COMPLEX #90 caps fluticasone propionate 50 See Rx Instructions .Route 02/25/24 04/16/24 Rx mcg/actuation nasal .COMPLEX #16 mL spray,suspension meloxicam 15 mg tablet See Rx Instructions .Route 02/25/24 04/16/24 Rx .COMPLEX #90 tabs bisacodyl 5 mg tablet 5 mg PO QHS #4 tabs 02/28/24 04/01/24 Rx polyethylene glycol 3350 17 17 g PO DAILY #238 grams 02/28/24 04/01/24 Rx gram/dose oral powder (Miralax) hydrochlorothiazide 12.5 mg tablet See Rx Instructions .Route 03/13/24 04/16/24 Rx .COMPLEX #90 tabs valacyclovir 500 mg tablet See Rx Instructions .Route 03/13/24 04/01/24 Rx .COMPLEX #20 tabs pantoprazole 40 mg tablet,delayed See Rx Instructions .Route 04/16/24 04/16/24 Rx release .COMPLEX #30 tabs Laboratory Tests 04/16/24 09:49 POC Capillary Glucose 94 mg/dl (65-105) Patient hx anesthesia problems: none Family hx anesthesia problems: none Results Review: All pre-operative results and documents have been reviewed as part of the pre- operative evaluation. [facility] Past Medical History Medical History Alcoholic Nausea Epigastric pain Hot flashes not due to menopause Laceration of finger of right hand Tobacco dependence Carpal tunnel syndrome, bilateral Depression Chronic back pain Hypertension Surgical History Surgical History History of carpal tunnel surgery left arm and elbow 2017. Right arm and elbow 2018 Hx of tonsillectomy 1st grade History of X3 87,89, and 98 Family History Family History Other Acute myocardial infarction Family history of malignant neoplasm Hypertension Social History Social History Social History: The patient is and her ex- recently . She had 3 children but 1 of her children as an infant. The patient states that she has been drinking 6 pack a day every day up until the last 2 days. She denies any tobacco abuse. The patient stated she used to use marijuana but pain management told her that she could not use marijuana while getting care from them. The patient is disabled. She does not have a durable power laundromat manager for healthcare. Code status full code Smoking status: Never smoker Alcohol intake: current Drinks per week: 6 Substance use: former Last use: 2020 Spiritual care concerns: No Anes - Eval Final PreProcedure Day of Procedure 04/16/24 11:09 Patient weight: overweight Heart: regular rate and rhythm Lungs: clear to auscultation Airway: Mallampati scale class II Neurological: alert and oriented Last oral intake: >/= 8 hours ASA classification: III Emergent: no Anesthetic plan: proceed Anesthesia type and monitoring: general GIVS and standard monitoring Results Review: All pre-operative results and documents have been reviewed as part of the pre- operative evaluation. Informed Consent: The patient's anesthetic plan and its attendant risks and benefits were discussed with the patient/family/POA. Questions were solicited and answers provided to the satisfaction of the patient/family/POA.
[2024-04-16 11:36] VITALS: BP 111/78; PULSE 74; RESP 18; O2SAT 100
[2024-04-16 11:46] VITALS: BP 113/82; PULSE 85; RESP 20; O2SAT 100
[2024-04-16 11:56] VITALS: BP 122/85; PULSE 85; RESP 16; O2SAT 100
[2024-04-16 12:04] LABS: Glucose Point of Care 67 mg/dl (65-105)
[2024-04-16 12:20] LABS: Glucose Point of Care 109 mg/dl (65-105)
--- OUTSIDE RECORDS SUMMARY | 2024-04-17 20:52 | XMS_ITS | Clinical Summary ---
Author Organization [facility] Address [address] [place] [address]. [place] [address] [place] [address] Care Team Providers Care Tourism Radio Presenter Name Role Phone Lizy Tirado SOLUTION DESIGN ENGINEER Primary Care Provider [phone] Allergies No known active allergies Medications lisinopril 20 MG tablet Take 1 tablet (20 mg total) by mouth daily. Active DULoxetine 60 MG capsule Take 30 mg by mouth daily. Active meloxicam 15 MG tablet Take 1 tablet (15 mg total) by mouth 2 (two) times a day. Active valACYclovir (VALTREX) 500 MG tablet Take 1 tablet (500 mg total) by mouth as needed. Active pregabalin 150 MG capsuleIndicati ons:Neuralgia Take 1 capsule (150 mg total) by mouth 2 (two) times daily. Indications: Nerve Pain Active Active Problems Problem Noted Date Diagnosed Date Abdominal pain 08/24/2020 Family History Medical History Relation Comments No Known Problems Brother Diabetes Father cancer Father heart attack Father stroke Mother thyroid Mother thyroid Sister 1 copd Sister 2 Relation Status Comments Brother Alive Father Mother Alive Sister 1 Alive Sister 2 Alive Social History Tobacco Use Types Packs/Day Years Used Date Smoking Tobacco: Never Smokeless Tobacco: Never Alcohol Use Standard Drinks/Week Comments Yes 0 (1 standard drink = 0.6 oz pur e alcohol) OCCASIONALLY Exercise Vital Sign Answer Date Recorde d On average, how many days pe r week do you engage in moderate to strenuous exercise (like a brisk walk)? 0 days 01/23/2020 On average, how many minutes do you engage in exercise at this level? 0 min 01/23/2020 Education Answer Date Recorded What is the highest level of school you have completed or the highest degree you have received? High school graduate 01/23/2020 Comments No Sex and Gender Information Value Date Recorded Sex Assigned at Not on file Legal Sex Female 10:03 AM CDT Gender Identity Not on file Sexual Orientation Not on file Last Filed Vital Signs Vital Sign Reading Time Taken Comments Blood Pressure 123/90 08/25/2020 3:56 PM CDT Pulse 80 08/25/2020 3:56 PM CDT Temperature 37.2 ??C (99 ??F) 08/24/2020 8:14 PM CDT Respiratory Rate 18 05/07/2020 1:14 PM TISSUE SPECIALIST Oxygen Saturation 100% 08/25/2020 3:56 PM CDT Inhaled Oxygen Concentration - - Weight 63 kg (139 lb) 09/24/2023 8:49 AM CDT Height 152.4 cm (5') 09/24/2023 8:49 AM CDT Body Mass Index 27.15 09/24/2023 8:49 AM CDT Plan of Treatment Health Maintenance Due Date Last Done Comments Colorectal Cancer Screening Colonoscopy (10 Years) 1965 Annual Physical 07/07/1970 Hepatitis C 07/07/1985 DTaP, Tdap and Td Vaccines ( 1 - Tdap) 07/07/1986 Hepatitis B Vaccines (1 of 3 - 19+ 3-dose series) 07/07/1986 Mammogram Screening 2007 Zoster Vaccines (1 of 2) 07/07/2017 COVID-19 Vaccine (2 - 2023-2 5 season) 2023 08/09/2020 Influenza Adult (#1) 2023 Meningococcal Vaccine Aged Out No garrick red eligible based on patient's age to complete this topic Pneumococcal Vaccine: Pediat rics (0 to 5 Years) and At-Risk Patients (6 to 64 Years) Aged Out No longer eligi ble based on patient's age to complete this topic RSV Immunizations Under 20 Months Aged Out No longer eligible based on patient's age to complete this topic Insurance [facility] Care Teams Tourism Radio Presenter Relationship Specialty Start Date End Date Lizy Tirado FNP [address] [id number] PCP - General NURSE PRACTITIONER 01/02/20
--- OUTSIDE RECORDS SUMMARY | 2024-04-17 20:52 | XMS_ITS | Patient Health Summary ---
Author Organization [facility] Address [address] [place] [address] Care Team Providers Care Apartment Property Manager Name Role Phone Unavailable Primary Care Provider Unavailabl e Note from [facility],non-owned Affiliates and Associated Physician Practices is amultiple site organization consisting of ambulatory clinics and hospital sitesin [place], [place], [place] and [place]. This disclosure is being madepursuant to the Care Everywhere program and may not contain all information available regarding this patient. Last updated 17.[facility] [email or web address] Social History Tobacco Use Types Packs/Day Years Used Date Smoking Tobacco: Never Assessed Sex and Gender Information Value Date Recorded Sex Assigned at Not on file Gender Identity Not on file Sexual Orientation Not on file Procedures * DERMATOPATHOLOGY(Performed 10/16/2022) Performed for Neoplasm of uncertain behavior of skin Results * DERMATOPATHOLOGY (10/16/2022 12:00 AM CDT) Case Report Dermatopathology Report ? Case: [id number] ? Authorizing Provider: ??Darby Thompson PA-C ? Collected: ? 10/16/2022 12:00 AM ? Ordering Location: ? [facility] ? Received: ?10/18/2022 01:57 PM ? Pathologist: ? Megan Will MD ? Specimens: ?? A) - Skin, left side of groin ? B) - Skin, right side of groin ? C) - Skin, right arm ? D) - Skin, left breast ? 3 2:21 PM CDT DERMATOPATHOLOGY LABORATORY Final Diagnosis Specimen A. SKIN, left side of groin: BENIGN VERRUCOUS KERATOSIS (L82.1) (see microscopic description and comment) Specimen B. SKIN, right side of groin: BENIGN VERRUCOUS KERATOSIS (L82.1) (see microscopic description and comment) Specimen C. SKIN, right arm: INTRADERMAL MELANOCYTIC NEVUS (D22.61) Specimen D. SKIN, left breast: LENTIGINOUS MELANOCYTIC NEVUS, JUNCTIONAL TYPE (D22.5) POST-INFLAMMATORY PIGMENT ALTERATION (L81.9) 3 2:21 PM CDT DERMATOPATHOLOGY LABORATORY Clinical History A-B, D: Atypical Nevus C: Irritated Nevus 3 2:21 PM [facility] DERMATOPATHOLOGY LABORATORY Gross Description Specimen A: Received is one formalin filled container labeled with the patient's name and designated left side of groin. The specimen consists of a shave biopsy measuring 6x4x2 mm. Jar 0. Specimen B: Received is one formalin filled container labeled with the patient's name and designated right side of groin. The specimen consists of a shave biopsy measuring 6x6x2 mm. Jar 0. Specimen C: Received is one formalin filled container labeled with the patient's name and designated right arm. The specimen consists of a shave biopsy measuring 3x3x2 mm. Jar 0. Specimen D: Received is one formalin filled container labeled with the patient's name and designated left breast. The specimen consists of a shave biopsy measuring 7x3x1 mm. Jar 0. 3 2:21 PM [facility] DERMATOPATHOLOGY LABORATORY Microscopic Description Specimen A. SKIN, left side of groin: Sections show hyperkeratosis, papillomatosis, hypergranulosis, and acanthosis. COMMENT: These histological findings can be seen in a seborrheic keratosis, or verruca vulgaris. Condyloma acuminatum was also considered. Specimen B. SKIN, right side of groin: Sections show hyperkeratosis, papillomatosis, hypergranulosis, and acanthosis. Additional deeper sections were obtained and reviewed. COMMENT: These histological findings can be seen in a seborrheic keratosis, verruca vulgaris, or condyloma acuminatum. Specimen C. SKIN, right arm: There are nests of cytologically bland melanocytes within the dermis that mature with depth. Specimen D. SKIN, left breast: This is a junctional nevus. There is a lentiginous proliferation of melanocytes between nests of cells along the dermal-epidermal junction, highlighted by MART-1/Melan-A immunohistochemical staining. There is underlying fibroplasia of the papillary dermis. (Junctional Erlin's Nevus) Sections show abundant melanin within melanophages around the superficial vascular plexus. 3 2:21 PM [facility] DERMATOPATHOLOGY LABORATORY Disclaimer An external and internal positive and negative controls are appropriate for the histochemical, immunohistochemical and immunofluorescence stain(s) in this case (if any), except where stated explicitly. The performance characteristics of the stain(s) cited in this report were developed and its performance characteristic determined by the Dermatopathology Laboratory at [facility], directed by Dr. Cat Fernandez. These tests need not be, and therefore are not, approved by the [place] Food and Drug Administration. The tests are used for clinical purposes. Billing Codes Specimen Charges Stain Charges 47940 79910 39204 50286 1 1 1 1 39829 1 3 2:21 PM CDT DERMATOPATHOLOGY LABORATORY Embedded Images 3 2:21 PM CDT DERMATOPATHOLOGY LABORATORY Pathology/Cytology TISSUE SPECIMEN FROM SKIN / Unknown 10/16/2022 10/18/2022 1:57 PM CDT Miscellaneous samples (specimen) TISSUE SPECIMEN FROM SKIN / Unknown 10/16/2022 10/18/2022 1:57 PM CDT Miscellaneous samples (specimen) TISSUE SPECIMEN FROM SKIN / Unknown 10/16/2022 10/18/2022 1:57 PM CDT Miscellaneous samples (specimen) TISSUE SPECIMEN FROM SKIN / Unknown 10/16/2022 10/18/2022 1:57 PM CDT Darby Thompson PA-C LAB - PATHOLOGY/CYTO LOGY ORDERABLES DERMATOPATHOLOGY LABORATORY [facility] - Department of Dermatology [facility] [address] [place] [address], [address] [phone]
--- OUTSIDE RECORDS SUMMARY | 2024-04-17 20:52 | XMS_ITS | Encounter Summary ---
Author Organization [facility] Address [address] [place] [address]. [place] [address] [place] [address] Care Team Providers Care Health And Nutrition Specialist Name Role Phone Lizy Tirado SHIP RUNNER Primary Care Provider + [phone] Encounter Details Date Type Department Care Team (Late st Contact Info) Description 05/24/2020 Telephone [facility] Interventional [place] [address] [phone] Jennifer Sy RN Social History Tobacco Use Types Packs/Day Years [...] on file Sexual Orientation Not on file COVID-19 Exposure Response Date Recorded In the last month, have you been in contact with someone who was confirmed or suspected to have Coronavirus / COVID-19? No / Unsure 05/07/2020 11:50 AM PILE HEADER documented as of this encounter Progress Notes * Jennifer Sy RN - 05/24/2020 1:07 PM CST Patient calls RN line with % of relief since her caudal epidural on 05-07-2020. Patient states that she had now pain for 1-2 days. Patient states that her legs feel like jello and its hard to roll over in bed. Patient states that her pain is 5-6 out of 10. At this time, patient is not scheduled for another injection. Patient is to call when pain returns and persists. HEADER documented in this encounter Plan of Treatment Not on file documented as of this encounter Visit Diagnoses Not on filedocumented in this encounter Care Teams Health And Nutrition Specialist Relationship Specialty Start Date End Date Lizy Tirado FNP [address] [place] [address] PCP - General NURSE PRACTITIONER 01/02/20 documented as of this encounter
--- OUTSIDE RECORDS SUMMARY | 2024-04-17 20:52 | XMS_ITS ---
Author Organization [facility] Address [address] [place], [place] [id number] Care Team Providers Care Fund Raiser Name Role Phone Lizy Tirado Unavailable Unavailable AMERICA CHAVIRA Unavailable [phone] REASON FOR VISIT 1st Post Op Encounters Encounter Location Date Provider Diagnosis [facility] [address] [place], [place] [id number] 10/18/2023 AMERICA CHAVIRA Plan Of Treatment No Information Progress Notes * TRAVIS ANGUIANODOB: 8 (58 yo F)Acc No.[id number]:10/18/2023 Patient:?TRAVIS ANGUIANO Provider:CAROLYN CHAVIRA :1965???Age:58 Y???Sex:Female D ate:10/18/2023 Address[address] [facility] Subjective: * Chief Complaints: * ???1. 1st Post Op. * Medical History:? Objective: * Vitals:? Assessment: Plan: * Treatment: * Billing Information: * Visit Code:? * Procedure Codes:? * Electronic signature of RADHA CHAVIRA DPM on 04/17/2024 at 08:52 PM METAL DIE FINISHER Sign off status: Pending * Provider:CAROLYN CHAVIRA Date:?10/18/2023 Generated for Kierra amos/Efra/eTransmitting on:?04/17/2024 08:52 PM METAL DIE FINISHER
--- OUTSIDE RECORDS SUMMARY | 2024-04-17 20:52 | XMS_ITS | Referral Summary ---
Author Organization [facility] Address [address] [place] [address] Care Team Providers Care Summer Sessions Director Name Role Phone Unavailable Primary Care Provider Unavailabl e Source Comments [facility],non-owned Affiliates and Associated Physician Practices is amultiple site organization consisting of ambulatory clinics and hospital sitesin [place], [place], [place] and [place]. This disclosure is being madepursuant to the Care Everywhere program and may not contain all information available regarding this patient. Last updated 17.[facility] [employer] Social History Tobacco Use Types Packs/Day Years Used Date Smoking Tobacco: Never Assessed Sex and Gender Information Value Date Recorded Sex Assigned at Not on file Gender Identity Not on file Sexual Orientation Not on file Plan of Treatment Not on file
--- OUTSIDE RECORDS SUMMARY | 2024-04-17 20:52 | XMS_ITS | Clinical Summary ---
Author Organization [facility] [employer] Address [address] [place] [address] Care Team Providers Care Manager Engine Name Role Phone Unavailable Primary Care Provider Unavailabl e Source Comments [facility] [employer],non-owned Affiliates and Associated Physician Practices is amultiple site organization consisting of ambulatory clinics and hospital sitesin [place], [place], [place] and [place]. This disclosure is being madepursuant to the Care Everywhere program and may not contain all information available regarding this patient. Last updated 17.[facility] [employer] Social History Tobacco Use Types Packs/Day Years Used Date Smoking Tobacco: Never Assessed Sex and Gender Information Value Date Recorded Sex Assigned at Not on file Gender Identity Not on file Sexual Orientation Not on file Plan of Treatment Health Maintenance Due Date Last Done Comments COLOGUARD (AGES 45-75) - COL ON CA SCREENING 1965 COLON MONITORING 1967 COLONOSCOPY - COLON CA SCREENING 1967 CT COLONOGRAPHY - COLON CA SCREENING 1967 Colorectal Cancer Screening 1967 FIT - COLON CA SCREENING 1967 FLEX SIG - COLON CA SCREENING 1967 LIPID TESTING 1965 MAMMOGRAM 1967 PAP SMEAR 1967 HIV SCREENING 07/07/1982 HEPATITIS C SCREENING 07/03/1985 DTAP/TDAP/TD VACCINES (1 - Tdap) 07/07/1986 HEPATITIS B VACCINE (1 of 3 - 19+ 3-dose series) 07/07/1986 PNEUMOCOCCAL VACCINE 50+ (1 of 1 - PCV) 07/07/2017 ZOSTER VACCINE (1 of 2) 07/07/2017 COVID-19 VACCINE ( - 2023-2 5 season) 2023 INFLUENZA VACCINE (#1) 2023 DEPRESSION SCREENING 03/26/2024 MEDICARE AWV ? CALENDAR YEAR 2024 HIB VACCINE Aged Out No longer eligi ble based on patient's age to complete this topic HPV VACCINE Aged Out No longer eligi ble based on patient's age to complete this topic MENINGOCOCCAL (Group B) VACCINE Aged Out No longer eligible based on patient's age to complete this topic MENINGOCOCCAL VACCINE Aged Out No garrick red eligible based on patient's age to complete this topic PNEUMOCOCCAL VACCINE Aged Out No long er eligible based on patient's age to complete this topic
--- OUTSIDE RECORDS SUMMARY | 2024-04-17 20:52 | XMS_ITS | Encounter Summary ---
Author Organization [facility] Address [address] [place] [address] Care Team Providers Care Payroll And Benefits Assistant Name Role Phone Unavailable Primary Care Provider Unavailabl e Encounter Details Date Type Department Care Team (Late st Contact Info) Description 10/17/2022 Lab Requisition [facility] - [facility]erm[facility] Lab [address] [place] [address] Darby Thompson PA-C [address] [place] [address] Neoplasm of uncertain behavior of skin Social History Tobacco Use Types Packs/Day Years Used Date Smoking Tobacco: Never Assessed Sex and Gender Information Value Date Recorded Sex Assigned at Not on file Gender Identity Not on file Sexual Orientation Not on file documented as of this encounter Plan of Treatment Not on file documented as of this encounter Procedures Procedure Name Priority Date/Time Associated Diagnosis Comments DERMATOPATHOLOGY Routine 10/16/2022 12:0 0 AM CDT Neoplasm of uncertain behavior of skin documented in this encounter Results * DERMATOPATHOLOGY (10/16/2022 12:00 AM CDT) Case Report Dermatopathology Report ? Case: [id number] ? Authorizing Provider: ??Darby Thompson PA-C ? Collected: ? 10/16/2022 12:00 AM ? Ordering Location: ? [facility] ? Received: ?10/18/2022 01:57 PM [...] POST-INFLAMMATORY PIGMENT ALTERATION (L81.9) 3 2:21 PM [facility] DERMATOPATHOLOGY LABORATORY Clinical History A-B, D: Atypical Nevus C: Irritated Nevus 3 2:21 PM [facility] DERMATOPATHOLOGY LABORATORY Gross Description Specimen A: Received [...] 7x3x1 mm. Jar 0. 3 2:21 PM [facility] DERMATOPATHOLOGY LABORATORY Microscopic Description Specimen A. SKIN, [...] the superficial vascular plexus. 3 2:21 PM CDT DERMATOPATHOLOGY LABORATORY Disclaimer An external and internal positive and negative controls are appropriate for the histochemical, immunohistochemical and immunofluorescence stain(s) in this case (if any), except where stated explicitly. The performance characteristics of the stain(s) cited in this report were developed and its performance characteristic determined by the Dermatopathology Laboratory at [facility], directed by Dr. Cat Fernandez. These tests need not be, and therefore are not, approved by the [place] Food and Drug Administration. The tests are used for clinical purposes. Billing Codes Specimen Charges Stain Charges 44753 07563 83601 70857 1 1 1 1 24346 1 3 2:21 PM CDT DERMATOPATHOLOGY LABORATORY [...] LAB - PATHOLOGY/CYTO LOGY ORDERABLES DERMATOPATHOLOGY LABORATORY [facility] - Department of Dermatology [address], [address] [phone] documented in this encounter Visit Diagnoses Diagnosis Neoplasm of uncertain behavior of skin documented in this encounter
--- OUTSIDE RECORDS SUMMARY | 2024-04-17 20:53 | XMS_ITS ---
Author Organization [facility] Address [address] [place], [place] [address] Care Team Providers Care Talent Acquisition Administrator Name Role Phone Lizy Tirado Unavailable Unavailable AMERICA CHAVIRA Unavailable [phone] REASON FOR VISIT CANCEL SURGERY Encounters Encounter Location Date Provider Diagnosis [facility] [address] [place], [place] [id number] 10/01/2023 AMERICA CAHVIRA Plan Of Treatment No Information Progress Notes * TRAVIS ANGUIANODOB: 8 (58 yo F)Acc No.[id number]:10/01/2023 Patient:?TRAVIS ANGUIANO :1965???Age:58 Y???Sex:Female Address:[address] [place] [address] * true * Date:? Generated for Doylei dandre/Efra/eTransmitting on:?04/17/2024 08:52 PM CHIEF ENGINEER WATERWORKS
--- OUTSIDE RECORDS SUMMARY | 2024-04-17 20:53 | XMS_ITS ---
Author Organization [facility] Address [address] [place], [place] [id number] Care Team Providers Care New Car Get Ready Mechanic Name Role Phone Lizy Tirado Unavailable Unavailable AMERICA CHAVIRA Unavailable [phone] REASON FOR VISIT [facility] SURGERY Encounters Encounter Location Date Provider Diagnosis [address] [id number] 10/02/2023 AMERICA CHAVIRA Plan Of Treatment No Information Progress Notes * TRAVIS ANGUIANODOB: 8 (58 yo F)Acc No.[id number]:10/02/2023 Patient:?TRAVIS ANGUIANO Provider:CAROLYN CHAVIRA :1965???Age:58 Y???Sex:Female D ate:10/02/2023 [address] [id number] * Billing Information: * Visit Code:? * Procedure Codes:? * Electronic signature of RADHA CHAVIRA DPM on 04/17/2024 at 08:52 PM PHYSICAL THERAPY AID Sign off status: Pending * Provider:CAROLYN CHAVIRA Date:?10/02/2023 Generated for Kierra amos/Efra/eTransmitting on:?04/17/2024 08:52 PM PHYSICAL THERAPY AID
== END 2024-04-16 12:25 | disposition home or self-care (01) ==
PROVIDERS: PCP Nurse Practitioner Family; Visit Provider Internal Medicine Gastroenterology
PROC: 0DJD8ZZ Inspection of Lower Intestinal Tract, Via Natural or Artificial Opening Endoscopic (ICD-10-PCS; CPT 45378; principal; 2024-04-16 11:00)
DX: K64.8 Other hemorrhoids (principal); K57.30 Diverticulosis of large intestine without perforation or abscess without bleeding; I10 Essential (primary) hypertension; G56.03 Carpal tunnel syndrome, bilateral upper limbs; F32.A Depression, unspecified; G89.29 Other chronic pain; M54.9 Dorsalgia, unspecified; Z98.890 Other specified postprocedural states; Z79.891 Long term (current) use of opiate analgesic; Z79.1 Long term (current) use of non-steroidal anti-inflammatories (NSAID); Z79.85 Long-term (current) use of injectable non-insulin antidiabetic drugs; Z86.0100 Personal history of colon polyps, unspecified; Z80.9 Family history of malignant neoplasm, unspecified; Z82.49 Family history of ischemic heart disease and other diseases of the circulatory system
CPT/HCPCS: 45378; 82948; J2003; J2704; J7120

== ENCOUNTER 2024-04-28 11:54 | Outpatient (CLI) | payer MEDICARE, SELFPAY ==
--- NOTE | ~2024-04-28 | MM_ITS ---
EXAMINATION: MM screening [facility] BI w von HISTORY: Screening mammogram TECHNIQUE: Craniocaudal and mediolateral oblique 3-D tomosynthesis images were obtained and synthetic 2-D images were generated. CAD analysis was submitted and interpreted. COMPARISON: 04/25/2023, 04/20/2022, 04/19/2021 BREAST PARENCHYMAL COMPOSITION:Not Dense. There are scattered areas of fibroglandular density. FINDINGS: No suspicious mass, calcification, or architectural distortion are identified in either adalgisa ast to suggest malignancy. There has been no suspicious interval change. IMPRESSION: No mammographic evidence of malignancy. Recommend routine screening mammography in one year. BI-RADS Category 1: Negative Reviewed, dictated and finalized at location . ACCOUNTING MANAGER
--- OUTSIDE RECORDS SUMMARY | 2024-04-28 13:03 | XMS_ITS | Clinical Summary ---
Author Organization [facility] Address [address] [place] [address]. [place] [address] [place] [address] Care Team Providers Care Crane Assembler Name Role Phone Lizy Tirado DISC PAD GRINDING MACHINE FEEDER Primary Care Provider [phone] Allergies No known active allergies Medications lisinopril [...] CDT Respiratory Rate 18 05/07/2020 1:14 PM FOREST SCIENTIST Oxygen Saturation 100% 08/25/2020 3:56 PM CDT [...] 2023 08/09/2020 Influenza Adult (#1) 2023 Meningococcal B Vaccine Aged Out No l onger eligible based on patient's age to complete this topic Meningococcal Vaccine Aged Out No garrick red [...] patient's age to complete this topic Insurance [facility] Care Teams Crane Assembler Relationship Specialty Start Date End Date Lizy Tirado FNP [address] [place] [address] PCP - General NURSE PRACTITIONER 01/02/20
--- OUTSIDE RECORDS SUMMARY | 2024-04-28 13:03 | XMS_ITS | Patient Health Summary ---
Author Organization [facility] Address [address] [place] [address] Care Team Providers Care Assistant Maintenance Manager Name Role Phone Unavailable Primary Care Provider Unavailabl e Note from [facility],non-owned Affiliates and Associated Physician Practices is amultiple site organization consisting of ambulatory clinics and hospital sitesin [place], [place], [place] and [place]. This disclosure is being madepursuant to the Care Everywhere program and may not contain all information available regarding this patient. Last updated 17.[facility] [employer] Social History Tobacco Use Types Packs/Day Years Used Date Smoking Tobacco: Never Assessed Sex and Gender Information Value Date Recorded Sex Assigned at Not on file Gender Identity Not on file Sexual Orientation Not on file Procedures * DERMATOPATHOLOGY(Performed 10/16/2022) Performed for Neoplasm of uncertain behavior of skin Results * DERMATOPATHOLOGY (10/16/2022 12:00 AM CDT) Case Report Dermatopathology Report ? Case: [id number] ? Authorizing Provider: ??Darby Thompson PA-C ? Collected: ? 10/16/2022 12:00 AM ? Ordering Location: ? [facility] ? Received: ?10/18/2022 01:57 PM [...] Nevus C: Irritated Nevus 3 2:21 PM [facility] DERMATOPATHOLOGY LABORATORY Gross Description Specimen A: Received [...] 7x3x1 mm. Jar 0. 3 2:21 PM [facility] DERMATOPATHOLOGY LABORATORY Microscopic Description Specimen A. SKIN, [...] the superficial vascular plexus. 3 2:21 PM [facility] DERMATOPATHOLOGY LABORATORY Disclaimer An external and internal positive and negative controls are appropriate for the histochemical, immunohistochemical and immunofluorescence stain(s) in this case (if any), except where stated explicitly. The performance characteristics of the stain(s) cited in this report were developed and its performance characteristic determined by the Dermatopathology Laboratory at [facility], directed by Dr. Cat Fernandez. These tests need not be, and therefore are not, approved by the [place] Food and Drug Administration. The tests are used for clinical purposes. Billing Codes Specimen Charges Stain Charges 70067 98022 33310 87918 1 1 1 1 51291 1 3 2:21 PM CDT DERMATOPATHOLOGY LABORATORY [...] LAB - PATHOLOGY/CYTO LOGY ORDERABLES DERMATOPATHOLOGY LABORATORY [facility] - Department of Dermatology [facility] [address] [place] [address], [address] [phone]
--- OUTSIDE RECORDS SUMMARY | 2024-04-28 13:03 | XMS_ITS | Clinical Summary ---
Author Organization [facility] Address [address] [place] [address] Care Team Providers Care Director Medical Affairs Name Role Phone Unavailable Primary Care Provider Unavailabl e Source Comments [facility],non-owned Affiliates and Associated Physician Practices is amultiple site organization consisting of ambulatory clinics and hospital sitesin [place], [place], [place] and [place]. This disclosure is being madepursuant to the Care Everywhere program and may not contain all information available regarding this patient. Last updated 17.[facility] [employer] Social History Tobacco Use Types Packs/Day Years [...]
--- OUTSIDE RECORDS SUMMARY | 2024-04-28 13:03 | XMS_ITS | Encounter Summary ---
Author Organization [facility] Address [address] [place] [address]. [place] [address] [place] [address] Care Team Providers Care Senior Safety Management Consultant Name Role Phone Lizy Tirado PURCHASING AND FISCAL CLERK Primary Care Provider + -[phone] Encounter Details Date Type Department Care Team (Late st Contact Info) Description 05/24/2020 Telephone [facility] Interventional [place] [address] [phone] Jennifer Sy RN Social History Tobacco Use [...] COVID-19? No / Unsure 05/07/2020 11:50 AM CONTRACT LOADER documented as of this encounter Progress Notes [...] to call when pain returns and persists. RACT LOADER documented in this encounter Plan of Treatment Not on file documented as of this encounter Visit Diagnoses Not on filedocumented in this encounter Care Teams Senior Safety Management Consultant Relationship Specialty Start Date End Date Lizy Tirado FNP [address] [place] [address] PCP - General NURSE PRACTITIONER 01/02/20 documented as of this encounter
--- OUTSIDE RECORDS SUMMARY | 2024-04-28 13:03 | XMS_ITS | Encounter Summary ---
Author Organization [facility] Address [address] [place] [address] Care Team Providers Care Industrial Engineering Technologist Name Role Phone Unavailable Primary Care Provider Unavailabl e Encounter Details Date Type Department Care Team (Late st Contact Info) Description 10/17/2022 Lab Requisition [facility] Lab [address] [place] [address] Darby Thompson PA-C [address] [place] [address] Neoplasm of uncertain behavior of [...] CDT) Case Report Dermatopathology Report ? Case: [id number] ? Authorizing Provider: ??Darby Thompson PA-C ? [...] POST-INFLAMMATORY PIGMENT ALTERATION (L81.9) 3 2:21 PM [facility] Clinical History A-B, D: Atypical Nevus C: Irritated Nevus 3 2:21 PM [facility] Gross Description Specimen A: Received [...] 7x3x1 mm. Jar 0. 3 2:21 PM [facility] Microscopic Description Specimen A. SKIN, [...] characteristic determined by the Dermatopathology Laboratory at [facility], directed by Dr. Cat Fernandez. These tests need not be, and therefore are not, approved by the [place] Food and Drug Administration. The tests are used for clinical purposes. Billing Codes Specimen Charges Stain Charges 43214 [id number] 58608 48594 1 1 1 1 23702 1 3 2:21 PM [facility] DERMATOPATHOLOGY LABORATORY [...] PATHOLOGY/CYTO LOGY ORDERABLES DERMATOPATHOLOGY LABORATORY [facility] - Department of Dermatology [address], [address] [phone] documented in this encounter Visit Diagnoses Diagnosis Neoplasm of uncertain behavior of skin documented in this encounter
--- OUTSIDE RECORDS SUMMARY | 2024-04-28 13:03 | XMS_ITS | Referral Summary ---
Author Organization [facility] Address [address] [place] [address] Care Team Providers Care Remote Medical Coder Name Role Phone Unavailable Primary Care Provider Unavailabl e Source Comments [facility],non-owned Affiliates and Associated Physician Practices is amultiple site organization consisting of ambulatory clinics and hospital sitesin [place], [place], [place] and [place]. This disclosure is being madepursuant to the Care Everywhere program and may not contain all information available regarding this patient. Last updated 17.[facility] [email or web address] Social History Tobacco Use Types Packs/Day Years Used Date Smoking Tobacco: Never Assessed Sex and Gender Information Value Date Recorded Sex Assigned at Not on file Gender Identity Not on file Sexual Orientation Not on file Plan of Treatment Not on file
== END 2024-04-28 11:55 | disposition home or self-care (01) ==
LOC: CHSIMG 11:55
PROVIDERS: PCP Nurse Practitioner Family; Visit Provider Nurse Practitioner Family
DX: Z12.31 Encounter for screening mammogram for malignant neoplasm of breast (principal)
CPT/HCPCS: 77063; 77067

== ENCOUNTER 2024-06-11 17:04 | Outpatient (NON) | payer MEDICARE, SELFPAY ==
--- OUTSIDE RECORDS SUMMARY | 2024-06-11 17:21 | XMS_ITS | Clinical Summary ---
Author Organization [facility] Address [address] [place] [address] Phone Care Team Providers Care Display Fabricator Name Role Phone KALINA ANP-BC, RAFA Nguyễn Unavailable [phone] MICHELLE WAKEFIELD Primary Care Provider [phone] Reason for Visit and Chief Complaint RX ISSUE/REFILL Problems Includes: Problems addressed during this encounter and other active Problems All Visits Onset Date Resolved Date Provider Condition S tatus Carpal Tunnel Syndrome 07/05/2020 KENDAL E L KALINA ANP-BC Active Last Documented On 1 11:24AM ; [facility] Depression 07/05/2020 RAFA L KALINA ANP-BC A ctive Last Documented On 1 11:24AM ; [facility] Chronic Low Back Pain 07/05/2020 RAFA L BLEVI NS ANP-BC Active Last Documented On 1 11:24AM ; [facility] Nicotine Dependence 07/05/2020 RAFA L KALINA ANP-BC Active Last Documented On 11:25AM ; [facility] Plan of Treatment No Plan of Treatment Recorded Assessments Includes: Assessments from this encounter No Assessments Recorded Medical Equipment - Implanted Devices Includes: Current Devices No Medical Equipment Recorded Medications Includes: Medications discussed during this encounter and other current Medications Discontinued / Stopped on this date KASH BUTT MD on 06/05/2023 HYDROcodone-Acetaminophen 5- 325 MG Oral Tablet Provider: KASH BUTT MD Diagnosis: Chronic pain syndrome Last Documented On 07/13/2023 2:52PM By Kash Butt MD ; [facility] New / Renewed during this visit KASH BUTT MD on 07/13/2023 HYDROcodone-Acetaminophen 5- 325 MG Oral Tablet Provider: KASH BUTT MD 15 day supply: 45 tablet, 0 refills Diagnosis: Chronic pain syndrome 1 po every 6-8 hours up to 3 times daily as needed, reduce use as pain improves Pharmacy: [facility] [address], [address] - Last Documented On 08/29/2023 8:08AM By Kash Butt MD ; [facility] Current Medications (continue as prescribed) HYDROcodone-Acetaminophen 5- 325 MG Oral Tablet 08/29/2023 Provider: KASH BUTT MD Diagnosis: Chronic pain syndrome 1 po every 6-8 hours up to 3 times daily as needed, reduce use as pain improves Last Documented On 08/29/2023 8:14AM By Kash Butt MD ; [facility] Meloxicam 15 MG Oral Tablet 11/29/2022 Provider: Diagnosis: 1/2 AM 1/2 PM Last Documented On 11/29/2022 3:41PM By Hollie GUADALUPE ; [facility] Tekturna HCT 300-12.5 MG Oral Tablet 11/29/2022 Prov ider: Diagnosis: Last Documented On 11/29/2022 3:43PM By Hollie GUADALUPE ; [facility] Trulicity 1.5 MG/0.5ML Subcutaneous Solution Pen-injec tor 11/29/2022 Provider: Diagnosis: 1 INJ WEEKLY Last Documented On 11/29/2022 3:42PM By Hollie GUADALUPE ; [facility] DULoxetine HCl 30 MG Oral Capsule Delayed Release Spri nkle 04/27/2022 Provider: Diagnosis: Last Documented On 3 4:30PM By Lora Sommer RN ; [facility] hydrOXYzine HCl 25 MG Oral Tablet 01/12/2022 Provide r: Diagnosis: Last Documented On 2 4:10PM By Lora Sommer RN ; [facility] Pregabalin 75 MG Oral Capsule 12/19/2021 Provider: KASH BUTT MD Diagnosis: TAKE 1 CAPSULE BY MOUTH TWICE A DAY Last Documented On 12/19/2021 7:38PM By Kash Butt MD ; [facility] Valtrex 500 MG Oral Tablet 07/05/2020 Provider: Diagnosis: Last Documented On 04/12/202 1 10:50AM By Re GUADALUPE ; [facility] Lisinopril 20 MG Oral Tablet 07/05/2020 Provider: Diagnosis: Last Documented On 1 10:49AM By Re GUADALUPE ; [facility] Medications Administered Includes: Administered Medications from this encounter No Administered Medications Recorded Results Includes: Results discussed during this encounter No Results Recorded For Specified Dates History of Present Illness Includes: History of Present Illness from this encounter STALIN ANGUIANO is a 58 year old female. Pharmacy name:~location: [facility]. Social History Description Last Updated Tobacco non-user 06/16/2021 Last Documented On 4 11:46AM ; [facility] Non-smoker 10/13/2020 Last Documented On 4 11:46AM ; [facility] Current nonsmoker 08/11/2020 Last Documented On 4 11:46AM ; [facility] [PHQ-2] Patient Health Questionnaire 2 i tem total score: 31 (Scale: 0-6) 07/05/2020 Last Documented On 4 11:46AM ; [facility] Alcohol 07/05/2020 Last Documented On 4 11:46AM ; [facility] Amount of alcohol per day: 3 07/05/2020 Last Documented On 4 11:46AM ; [facility] Difficulty walking 07/05/2020 Last Documented On 4 11:46AM ; [facility] Drug use 07/05/2020 Last Documented On 4 11:46AM ; [facility] Type: Marijuana 07/05/2020 Last Documented On 4 11:46AM ; [facility] Smoking Status Unknown Procedures and Surgical History Surgical History Last Updated No Pacemaker 07/05/2020 Last Documented On 4 11:46AM ; [facility] Medical History Includes: Medical History addressed during this encounter Description Last Updated manager managed care 07/05/2020 Last Documented On 4 11:46AM ; [facility] CT/MRI 01/02/2020 01/02/2020 07/05/2020 Last Documented On 4 11:46AM ; [facility] Currently wearing eyeglasses 07/05/2020 Last Documented On 4 11:46AM ; [facility] Injection/Nerve blocks 07/05/2020 Last Documented On 4 11:46AM ; [facility] No Pain Pump 07/05/2020 Last Documented On 4 11:46AM ; [facility] No Spinal cord stimulator 07/05/2020 Last Documented On 4 11:46AM ; [facility] Other method: 07/05/2020 Last Documented On 4 11:46AM ; [facility] Pain Clinic 07/05/2020 Last Documented On 4 11:46AM ; [facility] Physical therapy 07/05/2020 Last Documented On 4 11:46AM ; [facility] Please list all illnesses/co nditions you have been diagnosed with High blood pressure depression arthuis 07/05/2020 Last Documented On 4 11:46AM ; [facility] Please list all surgeries 3c section 87?[id number] 2007 partiasl [id number] ?2018 left and right hands and elbow carpual turnel 07/05/2020 Last Documented On 4 11:46AM ; [facility] Uses a cane for support 07/05/2020 Last Documented On 4 11:46AM ; [facility] Wearing contact lenses 07/05/2020 Last Documented On 4 11:46AM ; [facility] X-rays 01/27/2019 01/27/2019 07/05/2020 Last Documented On 4 11:46AM ; [facility] Family History Includes: Family History addressed during this encounter Description Last Updated Maternal history of family history of he art disease 07/05/2020 Last Documented On 4 11:46AM ; [facility] Maternal history of family history of is chemic heart disease 07/05/2020 Last Documented On 4 11:46AM ; [facility] Maternal history of stroke/paralysis 02/2021 Last Documented On 4 11:46AM ; [facility] Paternal history of Arthritis 07/05/2020 Last Documented On 4 11:46AM ; [facility] Paternal history of family history of he art disease 07/05/2020 Last Documented On 4 11:46AM ; [facility] Paternal history of family history of is chemic heart disease 07/05/2020 Last Documented On 4 11:46AM ; [facility] Review of Systems Includes: Review of Systems from this encounter No Review of Systems Recorded Mental Status Includes: Mental Status from this encounter No Mental Status Recorded Functional Status Includes: Functional Status from this encounter No Functional Status Recorded Physical Exam Includes: Physical Exam from this encounter No Physical Exam Recorded Allergies Includes: Active Allergies Substance Type Reaction Onset Date Resolved Date Statu s BEES Allergy Skin Rashes / Eruption of skin 2 Active Last Documented On 3 11:16AM ; [facility] Encounters Encounter Provider Location Date Check-In Time Check-Out Time Diagnosis RX ISSUE/REFILL KASH BUTT MD 07/13/2023 11:46AM 11:59PM Insurance Includes: Active Insurance Policies Plan Name Member ID Group # Subscriber Relationship Effect evelina Dates 1 - [facility] [id number] RTAVIS [facility] Clinical Notes Includes: Clinical Notes from this encounter * Progress note Date Encounter Last Documented by 07/13/2023 RX ISSUE/REFILL Last documented on 07/13/2023; 2:52 PM, KASH BUTT MD; [facility] Active Problems & Conditions - Carpal Tunnel Syndrome - Chronic Low Back Pain - Depression - Nicotine Dependence Chief Complaint Phone Call - Chief Concern: Reason for call: Patient is requesting a refill on hydrocodone ~How is medication taken? bid ~How many are left? 6 Risk Assessment Score: ~[place] 06/09/23 Last Office Visit: 02/08/23 ~ pt phone # for Return call: ~Last Drug Screen: 11/29/22 ~Date/Initials: 07/13/23 ZULMA. History of Present Illness TRAVIS ANGUIANO is a 58 year old female. Pharmacy name:~location: [facility]. Current Medication - DULoxetine HCl 30 MG Oral Capsule Delayed Release Sprinkle 0 days, 0 refills - hydrOXYzine HCl 25 MG Oral Tablet 0 days, 0 refills - Lisinopril 20 MG Oral Tablet One tablet daily 0 days, 0 refills - Meloxicam 15 MG Oral Tablet 1/2 AM 1/2 PM, 0 days, 0 refills - Pregabalin 75 MG Oral Capsule TAKE 1 CAPSULE BY MOUTH TWICE A DAY, 30 days, 2 refills - Tekturna HCT 300-12.5 MG Oral Tablet 1 capsule daily 0 days, 0 refills - Trulicity 1.5 MG/0.5ML Subcutaneous Solution Pen-injector 1 INJ WEEKLY, 0 days, 0 refills - Valtrex 500 MG Oral Tablet as needed 0 days, 0 refills Past Medical/Surgical History Reported: Injection/Nerve blocks, Pain Clinic, manager managed care, Physical therapy, Other method:, Please list all illnesses/conditions you have been diagnosed with: High blood pressure depression arthuis, and Please list all surgeries: 3c section 87?[id number] 2006 partiasl [id number] ?2018 left and right hands and elbow carpual turnel. Medical: Currently wearing eyeglasses, currently wearing contact lenses, and orthopedic history Uses a cane for support. No Spinal cord stimulator and no Pain Pump. Surgical / Procedural: No Pacemaker. Tests: X-rays 01/27/2019 01/27/[address]/MRI 01/02/2020 01/02/2020. Social History Difficulty walking. Behavioral: Amount of alcohol per day: 3. Tobacco use: Current nonsmoker and non-smoker. Alcohol: Alcohol. Drug Use: Drug use Type: Marijuana. Functional: [PHQ-2] Patient Health Questionnaire 2 item total score: 31 (Scale: 0-6). Allergies - BEES Reaction: Skin Rashes / Eruption of skin Family History Paternal: Arthritis Family history of Ischemic heart disease Maternal: Stroke/paralysis Family history of Ischemic heart disease Plan StartCited - Chronic pain syndrome HYDROcodone-Acetaminophen 5-325 MG tablet 1 po every 6-8 hours up to 3 times daily as needed, reduce use as pain improves, 15 days, 0 refills EndCited Care Team - BEATRICE ORTEGA- - Pain Management Health Reminders - Assess Need for CT Lung Screen satisfied 07/13/2023. - Assess Tobacco Use satisfied 07/13/2023.
--- OUTSIDE RECORDS SUMMARY | 2024-06-11 17:21 | XMS_ITS ---
Care Plan - [facility] Created on: June 11, 2024 ANNMARIE TRAVIS Nadya : 1965 Sex: Female Author Organization [facility] Address [address] [place] [address] Phone Care Team Providers Care Joint Setter Name Role Phone RAFA TITUS Unavailable [phone] MICHELLE WAKEFIELD Primary Care Provider [phone]
--- OUTSIDE RECORDS SUMMARY | 2024-06-11 17:21 | XMS_ITS | Clinical Summary ---
Author Organization [facility] Address [address] [place] [address] Phone Care Team Providers Care Environmental Journalist Name Role Phone KALINA ANP-BC, RAFA Nguyễn Unavailable [phone] MICHELLE WAKEFIELD Primary Care Provider [phone] Reason for Visit and Chief Complaint RX ISSUE/REFILL Problems Includes: Problems addressed during this encounter and other active Problems All Visits Onset Date Resolved Date Provider Condition S tatus Carpal Tunnel Syndrome 07/05/2020 KEDNAL E L KALINA ANP-BC Active Last Documented On 1 11:24AM ; [facility] Depression 07/05/2020 RAFA L KALINA ANP-BC A ctive Last Documented On 11:24AM ; [facility] Chronic Low Back Pain 07/05/2020 RAFA L BLEVI NS ANP-BC Active Last Documented On 11:24AM ; [facility] Nicotine Dependence 07/05/2020 RAFA L KALINA ANP-BC Active Last Documented On 11:25AM ; [facility] Plan of Treatment No Plan of Treatment Recorded Assessments Includes: Assessments from this encounter No Assessments Recorded Medical Equipment - Implanted Devices Includes: Current Devices No Medical Equipment Recorded Medications Includes: Medications discussed during this encounter and other current Medications Current Medications (continue as prescribed) HYDROcodone-Acetaminophen 5- 325 MG Oral Tablet 08/29/2023 Provider: KASH BUTT MD Diagnosis: Chronic pain syndrome 1 po every 6-8 hours up to 3 times daily as needed, reduce use as pain improves Last Documented On 08/29/2023 8:14AM By Kash Butt MD ; [facility] Meloxicam 15 MG Oral Tablet 11/29/2022 Provider: Diagnosis: 1/2 AM 1/2 PM Last Documented On 11/29/2022 3:41PM By Hollie GUADALUPE ; [facility] Tekturna HCT 300-12.5 MG Oral Tablet 11/29/2022 Prov ider: Diagnosis: Last Documented On 11/29/2022 3:43PM By Hollie GUADALUPE ; [facility] Trulicity 1.5 MG/0.5ML Subcutaneous Solution Pen-injec tor 11/29/2022 Provider: Diagnosis: 1 INJ WEEKLY Last Documented On 11/29/2022 3:42PM By Hollie GUADALUPE ; [facility] DULoxetine HCl 30 MG Oral Capsule Delayed Release Spri nkle 04/27/2022 Provider: Diagnosis: Last Documented On 3 4:30PM By Lora Sommer RN ; [facility] hydrOXYzine HCl 25 MG Oral Tablet 01/12/2022 Provide r: Diagnosis: Last Documented On 2 4:10PM By Lora Sommer RN ; [facility] Pregabalin 75 MG Oral Capsule 12/19/2021 Provider: KASH BUTT MD Diagnosis: TAKE 1 CAPSULE BY MOUTH TWICE A DAY Last Documented On 12/19/2021 7:38PM By Kash Butt MD ; [facility] Valtrex 500 MG Oral Tablet 07/05/2020 Provider: Diagnosis: Last Documented On 1 10:50AM By Re GUADALUPE ; [facility] Lisinopril 20 MG Oral Tablet 07/05/2020 Provider: Diagnosis: Last Documented On 1 10:49AM By Re GUADALUPE ; [facility] Medications Administered Includes: Administered Medications from this encounter No Administered Medications Recorded Results Includes: Results discussed during this encounter DRUG MONITORING, PANEL 6 WITH CONFIRMATI ON, URINE [facility] Ordered by KASH BUTT MD on 11/30/19 Collected: 11/29/2022 Reported: 12/04/19 23 16:15 Last Documented On 3 1:29PM ; [facility] Reviewed by KASH Shay on 12/21/2022; All test results are final unless otherwise noted. Amphetamines NEGATIVE ng/mL (<500) None Last Documented On 3 10:31AM ; [facility] Barbiturates NEGATIVE ng/mL (<300) None Last Documented On 3 10:31AM ; [facility] Benzodiazepines NEGATIVE ng/mL (<100) None Last Documented On 3 10:31AM ; [facility] Marijuana Metabolite NEGATIVE ng/mL (<20) None Last Documented On 3 10:31AM ; [facility] Cocaine Metabolite NEGATIVE ng/mL (<150) None Last Documented On 3 10:31AM ; [facility] Methadone Metabolite NEGATIVE ng/mL (<100) None Last Documented On 3 10:31AM ; [facility] Opiates POSITIVE ng/mL (<100) A (Abnormal) Last Documented On 3 10:31AM ; [facility] Codeine NEGATIVE ng/mL (<50) None Last Documented On 10:31AM ; [facility] Morphine NEGATIVE ng/mL (<50) None Last Documented On 3 10:31AM ; [facility] Hydrocodone NEGATIVE ng/mL (<50) None Last Documented On 3 10:31AM ; [facility] Hydromorphone NEGATIVE ng/mL (<50) None Last Documented On 3 10:31AM ; [facility] Oxycodone NEGATIVE ng/mL (<100) None Last Documented On 3 10:31AM ; [facility] Phencyclidine NEGATIVE ng/mL (<25) None Last Documented On 3 10:31AM ; [facility] Alcohol Metabolites NEGATIVE ng/mL (<500) None Last Documented On 3 10:31AM ; [facility] 6 Acetylmorphine NEGATIVE ng/mL (<10) None Last Documented On 3 10:31AM ; [facility] pH 6.8 (4.5-9.0) None Last Documented On 3 10:31AM ; [facility] Creatinine 32.3 mg/dL (> or = 20.0) None Last Documented On 3 10:31AM ; [facility] Oxidant NEGATIVE mcg/mL (<200) None Last Documented On 3 10:31AM ; [facility] Norhydrocodone 61 ng/mL (<50) H (High) Last Documented On 3 10:31AM ; [facility] medMATCH Norhydrocodone CONSISTENT None Last Documented On 3 10:31AM ; [facility] Opiates Comments See Note None Last Documented On 12/07/2022 10:31AM ; [facility] Note: See Opiates Notes, LDT Notes DRUG MONITORING TEMPLATE [employer]. Ordered by KASH BUTT MD on 11/30/19 Collected: 11/29/2022 Reported: 12/04/19 16:15 Last Documented On 3 1:29PM ; [facility] Reviewed by KASH Shay on 12/21/2022; All test results are final unless otherwise noted. Notes and Comments See Note None Last Documented On 12/07/2022 10:31AM ; [facility] Note: This drug testing is for medical treatment only.Analysis was performed as non-forensic testing andthese results should be used only by healthcareproviders to render diagnosis or treatment, or tomonitor progress of medical conditions. Opiates Notes:Norhydrocodone detected is consistent with the use of the drug Hydrocodone. The metabolite Hydromorphone is not present at or above the cutoff. LDT Notes:Confirmation tests were developed and their analytical performance characteristics have been determined by [employer]. It has not been cleared or approved by the FDA. This assay has been validated pursuant to the CLIA regulations and is used for clinical purposes. medMATCH(R) enables providers to identify if drug useis consistent or inconsistent with a correspondingprescribed medication(s) list. Healthcare Providers needing Interpretation assistance, please contact us at [phone] ( ) M-F, 8am to 10pm EST PRESCRIBED DRUGS, medMATCH(R) [employer] Ordered by KASH BUTT MD on 11/30/19 Collected: 11/29/2022 Reported: 12/04/19 16:15 Last Documented On 3 1:29PM ; [facility] Reviewed by KASH Shay on 12/21/2022; All test results are final unless otherwise noted. Prescribed Drug 6 Hydrocodone None Last Documented On 3 10:31AM ; [facility] medMATCH Summary See Note None Last Documented On 12/07/2022 10:31AM ; [facility] Note: Prescribed Prescribed Not Prescribed Consistent Inconsistent Inconsistent Hydrocodone Drugs of abuse screen [facility] Ordered by KASH BUTT MD on 11/30/19 23 Collected: Reported: 11/29/2022 16:30 Last Documented On 3 4:33PM ; [facility] Reviewed on 11/29/2022; All test results are final unless otherwise noted. Lot # & Exp. Date [id number] 06-24-23 N (Normal) Last Documented On 3 4:31PM ; [facility] Amphetamines NEG (NEG) N (Normal) Last Documented On 3 4:31PM ; [facility] Barbiturates NEG (NEG) N (Normal) Last Documented On 3 4:31PM ; [facility] Benzodiazepines NEG (NEG) N (Normal) Last Documented On 3 4:31PM ; [facility] Cocaine NEG (NEG) N (Normal) Last Documented On 3 4:31PM ; [facility] Ecstasy NEG (NEG) N (Normal) Last Documented On 3 4:31PM ; [facility] Methamphetamines NEG (NEG) N (Normal) Last Documented On 3 4:31PM ; [facility] Methadone NEG (NEG) N (Normal) Last Documented On 3 4:31PM ; [facility] Morphine NEG (NEG) N (Normal) Last Documented On 3 4:31PM ; [facility] Oxycodone NEG (NEG) N (Normal) Last Documented On 3 4:31PM ; [facility] Phencyclidine NEG (NEG) N (Normal) Last Documented On 3 4:31PM ; [facility] TCA/Tricyclic Antidepressants NEG (NEG) N (Normal) Last Documented On 3 4:31PM ; [facility] Cannabis NEG (NEG) N (Normal) Last Documented On 3 4:31PM ; [facility] History of Present Illness Includes: History of Present Illness from this encounter STALIN ANGUIANO is a 58 year old female. Pharmacy name:~location:[facility]. Social History Description Last Updated Tobacco non-user 06/16/2021 Last Documented On 4 10:17AM ; [facility] Non-smoker 10/13/2020 Last Documented On 4 10:17AM ; [facility] Current nonsmoker 08/11/2020 Last Documented On 4 10:17AM ; [facility] [PHQ-2] Patient Health Questionnaire 2 i tem total score: 31 (Scale: 0-6) 07/05/2020 Last Documented On 4 10:17AM ; [facility] Alcohol 07/05/2020 Last Documented On 4 10:17AM ; [facility] Amount of alcohol per day: 3 07/05/2020 Last Documented On 4 10:17AM ; [facility] Difficulty walking 07/05/2020 Last Documented On 4 10:17AM ; [facility] Drug use 07/05/2020 Last Documented On 4 10:17AM ; [facility] Type: Marijuana 07/05/2020 Last Documented On 4 10:17AM ; [facility] Smoking Status Unknown Procedures and Surgical History Surgical History Last Updated No Pacemaker 07/05/2020 Last Documented On 4 10:17AM ; [facility] Medical History Includes: Medical History addressed during this encounter Description Last Updated 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/2020 Last Documented On 4 10:17AM ; [facility] CT/MRI 01/02/2020 01/02/2020 07/05/2020 Last Documented On 4 10:17AM ; [facility] Currently wearing eyeglasses 07/05/2020 Last Documented On 4 10:17AM ; [facility] Injection/Nerve blocks 07/05/2020 Last Documented On 4 10:17AM ; [facility] No Pain Pump 07/05/2020 Last Documented On 4 10:17AM ; [facility] No Spinal cord stimulator 07/05/2020 Last Documented On 4 10:17AM ; [facility] Other method: 07/05/2020 Last Documented On 4 10:17AM ; [facility] Pain Clinic 07/05/2020 Last Documented On 4 10:17AM ; [facility] Physical therapy 07/05/2020 Last Documented On 4 10:17AM ; [facility] Please list all illnesses/co nditions you have been diagnosed with High blood pressure depression arthuis 07/05/2020 Last Documented On 4 10:17AM ; [facility] Please list all surgeries 3c section 87?[id number] 2007 partiasl [id number] ?2018 left and right hands and elbow carpual turnel 07/05/2020 Last Documented On 4 10:17AM ; [facility] Uses a cane for support 07/05/2020 Last Documented On 4 10:17AM ; [facility] Wearing contact lenses 07/05/2020 Last Documented On 4 10:17AM ; [facility] X-rays 01/27/2019 01/27/2019 07/05/2020 Last Documented On 4 10:17AM ; [facility] Family History Includes: Family History addressed during this encounter Description Last Updated Maternal history of family history of he art disease 07/05/2020 Last Documented On 4 10:17AM ; [facility] Maternal history of family history of is chemic heart disease 07/05/2020 Last Documented On 4 10:17AM ; [facility] Maternal history of stroke/paralysis 02/2021 Last Documented On 4 10:17AM ; [facility] Paternal history of Arthritis 07/05/2020 Last Documented On 4 10:17AM ; [facility] Paternal history of family history of he art disease 07/05/2020 Last Documented On 4 10:17AM ; [facility] Paternal history of family history of is chemic heart disease 07/05/2020 Last Documented On 4 10:17AM ; [facility] Review of Systems Includes: Review of [...] Active Last Documented On 3 11:16AM ; [facility] Encounters Encounter Provider Location Date Check-In Time Check-Out Time Diagnosis RX ISSUE/REFILL KASH BUTT MD 08/24/2023 10:18AM 11:59PM Insurance Includes: Active Insurance Policies Plan Name Member ID Group # Subscriber Relationship Effect evelina Dates 1 - [facility] [id number] TRAVIS Arevalo [facility] Clinical Notes Includes: Clinical Notes from this encounter * Progress note Date Encounter Last Documented by 08/24/2023 RX ISSUE/REFILL Last documented on 08/29/2023; 8:08 AM, KASH BUTT MD; [facility] Active Problems & Conditions - Carpal Tunnel Syndrome - Chronic Low Back Pain - Depression - Nicotine Dependence Chief Complaint Phone Call - Chief Concern: Reason for call: REFILL Patient is requesting a refill on HYDROCODONE 5/325 ~How is medication taken? 2 A DAY LD 08-24-23 ~How many are left? 3 Risk Assessment Score: LOW 8 ~[place]: Last Office Visit: 02-08-2023 MADE AN APPT FOR 09-12-23 INFORMED PT SHE HAS TO BE SEEN EVERY 3 MONTHS FOR PAIN MONTHS ~ pt phone # for Return call: [phone] ~Last Drug Screen:11-29-22 ~Date/Initials: 08-24-2023 [facility]. History of Present Illness TRAVIS ANGUIANO is a 58 year old female. Pharmacy name:~location:[facility]. Current Medication - DULoxetine HCl 30 MG Oral Capsule Delayed Release Sprinkle 0 days, 0 refills - HYDROcodone-Acetaminophen 5-325 MG Oral Tablet 1 po every 6-8 hours up to 3 times daily as needed, reduce use as pain improves, 15 days, 0 refills - hydrOXYzine HCl 25 [...] Medical/Surgical History Reported: Injection/Nerve blocks, Pain Clinic, career consultant, Physical therapy, Other method:, Please list all illnesses/conditions you have been diagnosed with: High blood pressure depression arthuis, and Please list all surgeries: 3c section 87?89?98 2006 partiasl [id number] ?2018 left and right hands and elbow [...] Stroke/paralysis Family history of Ischemic heart disease Previous Tests - Test: Drugs of abuse screen Report Date: 11/29/2022 Lot # & Exp. Date [id number] 06-24-23 Normal Amphetamines NEG Normal Barbiturates NEG Normal Benzodiazepines NEG Normal Cocaine NEG Normal Ecstasy NEG Normal Methamphetamines NEG Normal Methadone NEG Normal Morphine NEG Normal Oxycodone NEG Normal Phencyclidine NEG Normal TCA/Tricyclic Antidepressants NEG Normal Cannabis NEG Normal - Test: DRUG MONITORING, PANEL 6 WITH CONFIRMATION, URINE Report Date: 12/03/2022 Amphetamines NEGATIVE ng/mL Barbiturates NEGATIVE ng/mL Benzodiazepines NEGATIVE ng/mL Marijuana Metabolite NEGATIVE ng/mL Cocaine Metabolite NEGATIVE ng/mL Methadone Metabolite NEGATIVE ng/mL Opiates POSITIVE ng/mL Abnormal Codeine NEGATIVE ng/mL Morphine NEGATIVE ng/mL Hydrocodone NEGATIVE ng/mL Hydromorphone NEGATIVE ng/mL Oxycodone NEGATIVE ng/mL Phencyclidine NEGATIVE ng/mL Alcohol Metabolites NEGATIVE ng/mL 6 Acetylmorphine NEGATIVE ng/mL pH 6.8 Creatinine 32.3 mg/dL Oxidant NEGATIVE mcg/mL Norhydrocodone 61 ng/mL High medMATCH Norhydrocodone CONSISTENT Opiates Comments - Test: DRUG MONITORING TEMPLATE Report Date: 12/03/2022 Notes and Comments - Test: PRESCRIBED DRUGS, medMATCH(R) Report Date: 12/03/2022 Prescribed Drug 6 Hydrocodone medMATCH Summary Plan StartCited - Chronic pain syndrome HYDROcodone-Acetaminophen 5-325 MG tablet 1 po every 6-8 hours up to 3 times daily as needed, reduce use as pain improves, 15 days, 0 refills EndCited Care Team - BEATRICE ORTEGA- - Pain Management Health Reminders - Assess Need for CT Lung Screen satisfied 08/24/2023. - Assess Tobacco Use satisfied 08/24/2023.
--- OUTSIDE RECORDS SUMMARY | 2024-06-11 17:21 | XMS_ITS | Clinical Summary ---
Author Organization [facility] Address [address] [place] [address] Phone Care Team Providers Care Pressure Sealer And Tester Name Role Phone KALINA ANP-BC, RAFA Nguyễn Unavailable [phone] MICHELLE WAKEFIELD Primary Care Provider [phone] Reason for Visit and Chief Complaint RX ISSUE/REFILL Problems Includes: Problems addressed during this encounter and other active Problems All Visits Onset Date Resolved Date Provider Condition S tatus Carpal Tunnel Syndrome 07/05/2020 KENDAL E L KALINA ANP-BC Active Last Documented On 1 11:24AM ; [facility] Depression 07/05/2020 RAFA L KALINA ANP-BC A ctive Last Documented On 11:24AM ; [facility] Chronic Low Back Pain 07/05/2020 RAFA L BLEVI NS ANP-BC Active Last Documented On 1 11:24AM ; [facility] Nicotine Dependence 07/05/2020 RAFA L KALINA ANP-BC Active Last Documented On 11:25AM ; [facility] Plan of Treatment No Plan of Treatment Recorded Assessments Includes: Assessments from this encounter No Assessments Recorded Medical Equipment - Implanted Devices Includes: Current Devices No Medical Equipment Recorded Medications Includes: Medications discussed during this encounter and other current Medications Discontinued / Stopped on this date KASH BUTT MD on 01/12/2023 HYDROcodone-Acetaminophen 5- 325 MG Oral Tablet Provider: KASH BUTT MD Diagnosis: Chronic pain syndrome Last Documented On 03/14/2023 2:01PM By Kash Butt MD ; [facility] New / Renewed during this visit KASH BUTT MD on 03/14/2023 HYDROcodone-Acetaminophen 5- 325 MG Oral Tablet Provider: KASH BUTT MD 15 day supply: 45 tablet, 0 refills Diagnosis: Chronic pain syndrome 1 po every 6-8 hours up to 3 times daily as needed, reduce use as pain improves Pharmacy: [facility] [address], [address] - Last Documented On 04/20/2023 5:03PM By Kash Butt MD ; [facility] Current Medications (continue as prescribed) HYDROcodone-Acetaminophen 5- 325 MG Oral Tablet 08/29/2023 Provider: KASH BUTT MD Diagnosis: Chronic pain syndrome 1 po every 6-8 hours up to 3 times daily as needed, reduce use as pain improves Last Documented On 08/29/2023 8:14AM By Kash Butt MD ; [facility] Meloxicam 15 MG Oral Tablet 11/29/2022 Provider: Diagnosis: 1/2 AM 1/2 PM Last Documented On 11/29/2022 3:41PM By Hollie GUADALUPE ; [facility] Tekturna HCT 300-12.5 MG Oral Tablet 11/29/2022 Prov ider: Diagnosis: Last Documented On 11/29/2022 3:43PM By Hollie GUADALUPE ; [facility] Trulicity 1.5 MG/0.5ML Subcutaneous Solution Pen-injec tor 11/29/2022 Provider: Diagnosis: 1 INJ WEEKLY Last Documented On 11/29/2022 3:42PM By Hollie GUADALUPE ; [facility] DULoxetine HCl 30 MG Oral Capsule Delayed Release Spri nkle 04/27/2022 Provider: Diagnosis: Last Documented On 3 4:30PM By Lora Sommer RN ; [facility] hydrOXYzine HCl 25 MG Oral Tablet 01/12/2022 Provide r: Diagnosis: Last Documented On 2 4:10PM By Lora Sommer RN ; [facility] Pregabalin 75 MG Oral Capsule 12/19/2021 Provider: KASH BUTT MD Diagnosis: TAKE 1 CAPSULE BY MOUTH TWICE A DAY Last Documented On 12/19/2021 7:38PM By Kash Butt MD ; [facility] Valtrex 500 MG Oral Tablet 07/05/2020 Provider: Diagnosis: Last Documented On 04/12/202 1 10:50AM By Re GUADALUPE ; [facility] Lisinopril 20 MG Oral Tablet 07/05/2020 Provider: Diagnosis: Last Documented On 10:49AM By Re GUADALUPE ; [facility] Medications Administered Includes: Administered Medications from this encounter No Administered Medications Recorded Results Includes: Results discussed during this encounter DRUG MONITORING, PANEL 6 WITH CONFIRMATI ON, URINE [employer] Ordered by KASH BUTT MD on 11/30/19 Collected: 11/29/2022 Reported: 12/04/19 16:15 Last Documented On 3 1:29PM ; [facility] Reviewed by KASH Shay on 12/21/2022; All test results are final unless otherwise noted. Amphetamines NEGATIVE ng/mL (<500) None Last Documented On 3 10:31AM ; [facility] Barbiturates NEGATIVE ng/mL (<300) None Last Documented On 3 10:31AM ; [facility] Benzodiazepines NEGATIVE ng/mL (<100) None Last Documented On 3 10:31AM ; [facility] Marijuana Metabolite NEGATIVE ng/mL (<20) None Last Documented On 3 10:31AM ; [facility] Cocaine Metabolite NEGATIVE ng/mL (<150) None Last Documented On 3 10:31AM ; [facility] Methadone Metabolite NEGATIVE ng/mL (<100) None Last Documented On 3 10:31AM ; [facility] Opiates POSITIVE ng/mL (<100) A (Abnormal) Last Documented On 3 10:31AM ; [facility] Codeine NEGATIVE ng/mL (<50) None Last Documented On 3 10:31AM ; [facility] Morphine NEGATIVE ng/mL (<50) None Last Documented On 3 10:31AM ; [facility] Hydrocodone NEGATIVE ng/mL (<50) None Last Documented On 3 10:31AM ; [facility] Hydromorphone NEGATIVE ng/mL (<50) None Last Documented On 3 10:31AM ; [facility] Oxycodone NEGATIVE ng/mL (<100) None Last Documented On 3 10:31AM ; [facility] Phencyclidine NEGATIVE ng/mL (<25) None Last Documented On 3 10:31AM ; [facility] Alcohol Metabolites NEGATIVE ng/mL (<500) None Last Documented On 3 10:31AM ; [facility] 6 Acetylmorphine NEGATIVE ng/mL (<10) None Last Documented On 3 10:31AM ; [facility] pH 6.8 (4.5-9.0) None Last Documented On 3 10:31AM ; [facility] Creatinine 32.3 mg/dL (> or = 20.0) None Last Documented On 10:31AM ; [facility] Oxidant NEGATIVE mcg/mL (<200) None Last Documented On 3 10:31AM ; [facility] Norhydrocodone 61 ng/mL (<50) H (High) Last Documented On 3 10:31AM ; [facility] medMATCH Norhydrocodone CONSISTENT None Last Documented On 10:31AM ; [facility] Opiates Comments See Note None Last Documented On 12/07/2022 10:31AM ; [facility] Note: See Opiates Notes, LDT Notes DRUG MONITORING [employer]ATE [employer] Ordered by KASH BUTT MD on 11/30/19 Collected: 11/29/2022 Reported: 12/04/19 23 16:15 Last Documented On 3 1:29PM ; [facility] Reviewed by KASH Shay on 12/21/2022; All test results are final unless otherwise noted. Notes and Comments See Note None Last Documented On 12/07/2022 10:31AM ; [facility] Note: This drug testing is for medical [...] analytical performance characteristics have been determined by [employer] It has not been cleared or approved by the FDA. This assay has been validated pursuant to the CLIA regulations and is used for clinical purposes. medMATCH(R) enables providers to identify if drug useis consistent or inconsistent with a correspondingprescribed medication(s) list. Healthcare Providers needing Interpretation assistance, please contact us at [phone] ( ) M-F, 8am to 10pm EST PRESCRIBED DRUGS, medMATCH(R) [employer]. Ordered by KASH BUTT MD on 11/30/19 Collected: 11/29/2022 Reported: 12/04/19 16:15 Last Documented On 3 1:29PM ; [facility] Reviewed by KASH Shay on 12/21/2022; All test results are final unless otherwise noted. Prescribed Drug 6 Hydrocodone None Last Documented On 10:31AM ; [facility] medMATCH Summary See Note None Last Documented On 12/07/2022 10:31AM ; [facility] Note: Prescribed Prescribed Not Prescribed Consistent Inconsistent Inconsistent Hydrocodone Drugs of abuse screen [facility] Ordered by KASH BUTT MD on 11/30/19 Collected: Reported: 11/29/2022 16:30 Last Documented On 3 4:33PM ; [facility] Reviewed on 11/29/2022; All test results are final unless otherwise noted. Lot # & Exp. Date [id number] 06-24-23 N (Normal) Last Documented On 3 4:31PM ; [facility] Amphetamines NEG (NEG) N (Normal) Last Documented On 3 4:31PM ; [facility] Barbiturates NEG (NEG) N (Normal) Last Documented On 3 4:31PM ; [facility] Benzodiazepines NEG (NEG) N (Normal) Last Documented On 3 4:31PM ; [facility] Cocaine NEG (NEG) N (Normal) Last Documented On 3 4:31PM ; [facility] Ecstasy NEG (NEG) N (Normal) Last Documented On 3 4:31PM ; [facility] Methamphetamines NEG (NEG) N (Normal) Last Documented On 3 4:31PM ; [facility] Methadone NEG (NEG) N (Normal) Last Documented On 3 4:31PM ; [facility] Morphine NEG (NEG) N (Normal) Last Documented On 3 4:31PM ; [facility] Oxycodone NEG (NEG) N (Normal) Last Documented On 3 4:31PM ; [facility] Phencyclidine NEG (NEG) N (Normal) Last Documented On 3 4:31PM ; [facility] TCA/Tricyclic Antidepressants NEG (NEG) N (Normal) Last Documented On 3 4:31PM ; [facility] Cannabis NEG (NEG) N (Normal) Last Documented On 3 4:31PM ; [facility] History of Present Illness Includes: History of Present Illness from this encounter STALIN ANGUIANO is a 57 year old female. Pharmacy name:~location:[facility]. Social History Description Last Updated Tobacco non-user 06/16/2021 Last Documented On 3 9:38AM ; [facility] Non-smoker 10/13/2020 Last Documented On 3 9:38AM ; [facility] Current nonsmoker 08/11/2020 Last Documented On 3 9:38AM ; [facility] [PHQ-2] Patient Health Questionnaire 2 i tem total score: 31 (Scale: 0-6) 07/05/2020 Last Documented On 3 9:38AM ; [facility] Alcohol 07/05/2020 Last Documented On 3 9:38AM ; [facility] Amount of alcohol per day: 3 07/05/2020 Last Documented On 3 9:38AM ; [facility] Difficulty walking 07/05/2020 Last Documented On 3 9:38AM ; [facility] Drug use 07/05/2020 Last Documented On 3 9:38AM ; [facility] Type: Marijuana 07/05/2020 Last Documented On 3 9:38AM ; [facility] Smoking Status Unknown Procedures and Surgical History Surgical History Last Updated No Pacemaker 07/05/2020 Last Documented On 3 9:38AM ; [facility] Medical History Includes: Medical History addressed during this encounter Description Last Updated health care coordinator 07/05/2020 Last Documented On 3 9:38AM ; [facility] CT/MRI 01/02/2020 01/02/2020 07/05/2020 Last Documented On 3 9:38AM ; [facility] Currently wearing eyeglasses 07/05/2020 Last Documented On 3 9:38AM ; [facility] Injection/Nerve blocks 07/05/2020 Last Documented On 3 9:38AM ; [facility] No Pain Pump 07/05/2020 Last Documented On 3 9:38AM ; [facility] No Spinal cord stimulator 07/05/2020 Last Documented On 3 9:38AM ; [facility] Other method: 07/05/2020 Last Documented On 3 9:38AM ; [facility] Pain Clinic 07/05/2020 Last Documented On 3 9:38AM ; [facility] Physical therapy 07/05/2020 Last Documented On 3 9:38AM ; [facility] Please list all illnesses/co nditions you have been diagnosed with High blood pressure depression arthuis 07/05/2020 Last Documented On 3 9:38AM ; [facility] Please list all surgeries 3c section 87?[id number] 2007 partiasl [id number] ?2018 left and right hands and elbow carpual turnel 07/05/2020 Last Documented On 3 9:38AM ; [facility] Uses a cane for support 07/05/2020 Last Documented On 3 9:38AM ; [facility] Wearing contact lenses 07/05/2020 Last Documented On 3 9:38AM ; [facility] X-rays 01/27/2019 01/27/2019 07/05/2020 Last Documented On 3 9:38AM ; [facility] Family History Includes: Family History addressed during this encounter Description Last Updated Maternal history of family history of he art disease 07/05/2020 Last Documented On 3 9:38AM ; [facility] Maternal history of family history of is chemic heart disease 07/05/2020 Last Documented On 3 9:38AM ; [facility] Maternal history of stroke/paralysis 02/2021 Last Documented On 3 9:38AM ; [facility] Paternal history of Arthritis 07/05/2020 Last Documented On 3 9:38AM ; [facility] Paternal history of family history of he art disease 07/05/2020 Last Documented On 3 9:38AM ; [facility] Paternal history of family history of is chemic heart disease 07/05/2020 Last Documented On 3 9:38AM ; [facility] Review of Systems Includes: Review of Systems [...] Active Last Documented On 3 11:16AM ; [facility] Encounters Encounter Provider Location Date Check-In Time Check-Out Time Diagnosis RX ISSUE/REFILL KASH BUTT MD 03/14/2023 9:37AM 11:59PM Insurance Includes: Active Insurance Policies Plan Name Member ID Group # Subscriber Relationship Effect evelina Dates 1 - [facility] [id number] TRAVIS Arevalo [facility] Clinical Notes Includes: Clinical Notes from this encounter * Progress note Date Encounter Last Documented by 03/14/2023 RX ISSUE/REFILL Last documented on 03/14/2023; 2:02 PM, KASH BUTT MD; [facility] Active Problems & Conditions - Carpal Tunnel Syndrome - Chronic Low Back Pain - Depression - Nicotine Dependence Chief Complaint Phone Call - Chief Concern: Reason for call: REFILL Patient is requesting a refill on HYDROCODONE 5/325 PT STATES THAT HER PAIN IS THE TAILBONE NOT HER SCIATIC THEY ARE GOOD ~How is medication taken? 3 A DAY LAST DOSE 03-13-23 ~How many are left?8 Risk Assessment Score: LOW 8 ~[place]MP: 01-12-23 45/15 Last Office Visit: 02-08-23 ~ pt phone # for Return call: [phone] ~Last Drug Screen:11-29-22 ~Date/Initials:03-14-23 [facility]. History of Present Illness TRAVIS ANGUIANO is a 57 year old female. Pharmacy name:~location:[facility]. Current Medication - DULoxetine HCl 30 MG [...] Medical/Surgical History Reported: Injection/Nerve blocks, Pain Clinic, health care coordinator, Physical therapy, Other method:, Please list all illnesses/conditions you have been diagnosed with: High blood pressure depression arthuis, and Please list all surgeries: 3c section 87?[id number] 2007 partiasl [id number] ?2018 left and right hands and elbow [...] Date: 11/29/2022 Lot # & Exp. Date [id number] 06-24-23 Normal Amphetamines NEG Normal Barbiturates NEG [...] 0 refills EndCited Care Team - BEATRICE ORTEGA-BC - Pain Management Health Reminders - Assess Need for CT Lung Screen satisfied 03/14/2023. - Assess Tobacco Use satisfied 03/14/2023.
--- OUTSIDE RECORDS SUMMARY | 2024-06-11 17:21 | XMS_ITS | Clinical Summary ---
Author Organization [facility] Address [address] [place] [address] Care Team Providers Care Animal Rehabilitator Name Role Phone Unavailable Primary Care Provider Unavailabl e Source Comments [facility],non-owned Affiliates and Associated Physician Practices is amultiple site organization consisting of ambulatory clinics and hospital sitesin [place], [place], [place] and [place]. This disclosure is being madepursuant to the Care Everywhere program and may not contain all information available regarding this patient. Last updated 17.[facility] Social History Tobacco Use Types Packs/Day Years [...] (#1) 2023 DEPRESSION SCREENING 03/26/2024 MEDICARE AWV CALENDAR YEAR 2024 HIB VACCINE Aged Out No longer eligi ble based on patient's age to complete this topic HPV VACCINE Aged Out No longer eligi ble based on patient's age to complete this topic MENINGOCOCCAL (Group B) VACC INE SHARED DECISION-MAKING Aged Out No longer eligibl e based on patient's age to complete this topic MENINGOCOCCAL GROUPS A/C/Y/W VACCINE Aged Out No longer eligible b ased on patient's age to complete this topic PNEUMOCOCCAL VACCINE Aged Out No long er eligible based on patient's age to complete this topic
--- OUTSIDE RECORDS SUMMARY | 2024-06-11 17:21 | XMS_ITS | Clinical Summary ---
Author Organization [facility] Address [address] [place] [address] Phone Care Team Providers Care Signal Intelligence Analyst Name Role Phone KALINA ANP-BC, RAFA Nguyễn Unavailable [phone] MICHELLE WAKEFIELD Primary Care Provider [phone] Reason for Visit and Chief Complaint RX ISSUE/REFILL Problems Includes: Problems addressed during this encounter and other active Problems All Visits Onset Date Resolved Date Provider Condition S tatus Carpal Tunnel Syndrome 07/05/2020 KENDAL E L KALINA ANP-BC Active Last Documented On 1 11:24AM ; [facility] Depression 07/05/2020 RAFA L KALINA ANP-BC A ctive Last Documented On 11:24AM ; [facility] Chronic Low Back Pain 07/05/2020 RAFA L BLEVI NS ANP-BC Active Last Documented On 1 11:24AM ; [facility] Nicotine Dependence 07/05/2020 RAFA L KALINA ANP-BC Active Last Documented On 11:25AM ; [facility] Plan of Treatment No Plan of Treatment Recorded Assessments Includes: Assessments from this encounter No Assessments Recorded Medical Equipment - Implanted Devices Includes: Current Devices No Medical Equipment Recorded Medications Includes: Medications discussed during this encounter and other current Medications Discontinued / Stopped on this date KASH BUTT MD on 04/20/2023 HYDROcodone-Acetaminophen 5- 325 MG Oral Tablet Provider: KASH BUTT MD Diagnosis: Chronic pain syndrome Last Documented On 06/05/2023 9:17PM By Kash Butt MD ; [facility] Current Medications (continue as prescribed) HYDROcodone-Acetaminophen 5- 325 MG Oral Tablet 08/29/2023 Provider: KASH BUTT MD Diagnosis: Chronic pain syndrome 1 po every 6-8 hours up to 3 times daily as needed, reduce use as pain improves Last Documented On 08/29/2023 8:14AM By Kash Butt MD ; [facility] Meloxicam 15 MG Oral Tablet 11/29/2022 Provider: Diagnosis: 1/2 AM 1/2 PM Last Documented On 11/29/2022 3:41PM By Hollie GUADALUPE ; [facility] Tekturna HCT 300-12.5 MG Oral Tablet 11/29/2022 Prov ider: Diagnosis: Last Documented On 11/29/2022 3:43PM By Hollie UGADALUPE ; [facility] Trulicity 1.5 MG/0.5ML Subcutaneous Solution Pen-injec tor 11/29/2022 Provider: Diagnosis: 1 INJ WEEKLY Last Documented On 11/29/2022 3:42PM By Hollie GUADALUPE ; [facility] DULoxetine HCl 30 MG Oral Capsule Delayed Release Spri nkle 04/27/2022 Provider: Diagnosis: Last Documented On 3 4:30PM By Lora Sommer RN ; [facility] hydrOXYzine HCl 25 MG Oral Tablet 01/12/2022 Provide r: Diagnosis: Last Documented On 2 4:10PM By Lora Sommer RN ; [facility] Pregabalin 75 MG Oral Capsule 12/19/2021 Provider: KASH BUTT MD Diagnosis: TAKE 1 CAPSULE BY MOUTH TWICE A DAY Last Documented On 12/19/2021 7:38PM By Kash Butt MD ; [facility] Valtrex 500 MG Oral Tablet 07/05/2020 Provider: Diagnosis: Last Documented On 1 10:50AM By Re GUADALUPE ; [facility] Lisinopril 20 MG Oral Tablet 07/05/2020 Provider: Diagnosis: Last Documented On 1 10:49AM By Re GUADALUPE ; [facility] Medications Administered Includes: Administered Medications from this encounter No Administered Medications Recorded Results Includes: Results discussed during this encounter DRUG MONITORING, PANEL 6 WITH CONFIRMATI ON, URINE NWA [employer] Ordered by KASH BUTT MD on 11/30/19 Collected: 11/29/2022 Reported: 12/04/19 23 16:15 Last Documented On 3 1:29PM ; [facility] Reviewed by KASH Shay on 12/21/2022; All test results are final unless otherwise noted. Amphetamines NEGATIVE ng/mL (<500) None Last Documented On 3 10:31AM ; [facility] Barbiturates NEGATIVE ng/mL (<300) None Last Documented On 10:31AM ; [facility] Benzodiazepines NEGATIVE ng/mL (<100) None Last Documented On 3 10:31AM ; [facility] Marijuana Metabolite NEGATIVE ng/mL (<20) None Last Documented On 10:31AM ; [facility] Cocaine Metabolite NEGATIVE ng/mL (<150) None Last Documented On 10:31AM ; [facility] Methadone Metabolite NEGATIVE ng/mL (<100) None Last Documented On 10:31AM ; [facility] Opiates POSITIVE ng/mL (<100) A (Abnormal) Last Documented On 3 10:31AM ; [facility] Codeine NEGATIVE ng/mL (<50) None Last Documented On 10:31AM ; [facility] Morphine NEGATIVE ng/mL (<50) None Last Documented On 3 10:31AM ; [facility] Hydrocodone NEGATIVE ng/mL (<50) None Last Documented On 10:31AM ; [facility] Hydromorphone NEGATIVE ng/mL (<50) None Last Documented On 3 10:31AM ; [facility] Oxycodone NEGATIVE ng/mL (<100) None Last Documented On 10:31AM ; [facility] Phencyclidine NEGATIVE ng/mL (<25) None Last Documented On 10:31AM ; [facility] Alcohol Metabolites NEGATIVE ng/mL (<500) None Last Documented On 10:31AM ; [facility] 6 Acetylmorphine NEGATIVE ng/mL (<10) None Last Documented On 10:31AM ; [facility] pH 6.8 (4.5-9.0) None Last Documented On 3 10:31AM ; [facility] Creatinine 32.3 mg/dL (> or = 20.0) None Last Documented On 3 10:31AM ; [facility] Oxidant NEGATIVE mcg/mL (<200) None Last Documented On 3 10:31AM ; [facility] Norhydrocodone 61 ng/mL (<50) H (High) Last Documented On 10:31AM ; [facility] medMATCH Norhydrocodone CONSISTENT None Last Documented On 10:31AM ; [facility] Opiates Comments See Note None Last Documented On 12/07/2022 10:31AM ; [facility] Note: See Opiates Notes, LDT Notes PRESCRIBED DRUGS, medMATCH(R) [employer] Ordered by KASH BUTT MD on 11/30/19 Collected: 11/29/2022 Reported: 12/04/19 16:15 Last Documented On 3 1:29PM ; [facility] Reviewed by KASH Shay on 12/21/2022; All test results are final unless otherwise noted. Prescribed Drug 6 Hydrocodone None Last Documented On 3 10:31AM ; [facility] medMATCH Summary See Note None Last Documented On 12/07/2022 10:31AM ; [facility] Note: Prescribed Prescribed Not Prescribed Consistent Inconsistent Inconsistent Hydrocodone Drugs of abuse screen [facility] Ordered by KASH BUTT MD on 11/30/19 Collected: Reported: 11/29/2022 16:30 Last Documented On 3 4:33PM ; [facility] Reviewed on 11/29/2022; All test results are final unless otherwise noted. Lot # & Exp. Date [id number] 06-24-23 N (Normal) Last Documented On 3 4:31PM ; [facility] Amphetamines NEG (NEG) N (Normal) Last Documented On 3 4:31PM ; [facility] Barbiturates NEG (NEG) N (Normal) Last Documented On 3 4:31PM ; [facility] Benzodiazepines NEG (NEG) N (Normal) Last Documented On 3 4:31PM ; [facility] Cocaine NEG (NEG) N (Normal) Last Documented On 3 4:31PM ; [facility] Ecstasy NEG (NEG) N (Normal) Last Documented On 3 4:31PM ; [facility] Methamphetamines NEG (NEG) N (Normal) Last Documented On 3 4:31PM ; [facility] Methadone NEG (NEG) N (Normal) Last Documented On 3 4:31PM ; [facility] Morphine NEG (NEG) N (Normal) Last Documented On 3 4:31PM ; [facility] Oxycodone NEG (NEG) N (Normal) Last Documented On 3 4:31PM ; [facility] Phencyclidine NEG (NEG) N (Normal) Last Documented On 3 4:31PM ; [facility] TCA/Tricyclic Antidepressants NEG (NEG) N (Normal) Last Documented On 3 4:31PM ; [facility] Cannabis NEG (NEG) N (Normal) Last Documented On 3 4:31PM ; [facility] History of Present Illness Includes: History of Present Illness from this encounter STALIN ANGUIANO is a 57 year old female. Pharmacy name:~location:[facility]. Social History Description Last Updated Tobacco non-user 06/16/2021 Last Documented On 4 12:34PM ; [facility] Non-smoker 10/13/2020 Last Documented On 4 12:34PM ; [facility] Current nonsmoker 08/11/2020 Last Documented On 4 12:34PM ; [facility] [PHQ-2] Patient Health Questionnaire 2 i tem total score: 31 (Scale: 0-6) 07/05/2020 Last Documented On 4 12:34PM ; [facility] Alcohol 07/05/2020 Last Documented On 4 12:34PM ; [facility] Amount of alcohol per day: 3 07/05/2020 Last Documented On 4 12:34PM ; [facility] Difficulty walking 07/05/2020 Last Documented On 4 12:34PM ; [facility] Drug use 07/05/2020 Last Documented On 4 12:34PM ; [facility] Type: Marijuana 07/05/2020 Last Documented On 4 12:34PM ; [facility] Smoking Status Unknown Procedures and Surgical History Surgical History Last Updated No Pacemaker 07/05/2020 Last Documented On 4 12:34PM ; [facility] Medical History Includes: Medical History addressed during this encounter Description Last Updated rn patient care 07/05/2020 Last Documented On 4 12:34PM ; [facility] CT/MRI 01/02/2020 01/02/2020 07/05/2020 Last Documented On 4 12:34PM ; [facility] Currently wearing eyeglasses 07/05/2020 Last Documented On 4 12:34PM ; [facility] Injection/Nerve blocks 07/05/2020 Last Documented On 4 12:34PM ; [facility] No Pain Pump 07/05/2020 Last Documented On 4 12:34PM ; [facility] No Spinal cord stimulator 07/05/2020 Last Documented On 4 12:34PM ; [facility] Other method: 07/05/2020 Last Documented On 4 12:34PM ; [facility] Pain Clinic 07/05/2020 Last Documented On 4 12:34PM ; [facility] Physical therapy 07/05/2020 Last Documented On 4 12:34PM ; [facility] Please list all illnesses/co nditions you have been diagnosed with High blood pressure depression arthuis 07/05/2020 Last Documented On 4 12:34PM ; [facility] Please list all surgeries 3c section 87?89?98 2007 partiasl [id number] ?2018 left and right hands and elbow carpual turnel 07/05/2020 Last Documented On 4 12:34PM ; [facility] Uses a cane for support 07/05/2020 Last Documented On 4 12:34PM ; [facility] Wearing contact lenses 07/05/2020 Last Documented On 4 12:34PM ; [facility] X-rays 01/27/2019 01/27/2019 07/05/2020 Last Documented On 4 12:34PM ; [facility] Family History Includes: Family History addressed during this encounter Description Last Updated Maternal history of family history of he art disease 07/05/2020 Last Documented On 4 12:34PM ; [facility] Maternal history of family history of is chemic heart disease 07/05/2020 Last Documented On 4 12:34PM ; [facility] Maternal history of stroke/paralysis 02/2021 Last Documented On 4 12:34PM ; [facility] Paternal history of Arthritis 07/05/2020 Last Documented On 4 12:34PM ; [facility] Paternal history of family history of he art disease 07/05/2020 Last Documented On 4 12:34PM ; [facility] Paternal history of family history of is chemic heart disease 07/05/2020 Last Documented On 4 12:34PM ; [facility] Review of Systems Includes: Review of Systems [...] Active Last Documented On 3 11:16AM ; [facility] Encounters Encounter Provider Location Date Check-In Time Check-Out Time Diagnosis RX ISSUE/REFILL KASH BUTT MD 06/04/2023 12:33PM 11:59PM Insurance Includes: Active Insurance Policies Plan Name Member ID Group # Subscriber Relationship Effect evelina Dates 1 - [facility] [id number] TRAVIS Arevalo [facility] Clinical Notes Includes: Clinical Notes from this encounter * Progress note Date Encounter Last Documented by 06/04/2023 RX ISSUE/REFILL Last documented on 06/05/2023; 9:17 PM, KASH BUTT MD; [facility] Active Problems & Conditions - Carpal Tunnel Syndrome - Chronic Low Back Pain - Depression - Nicotine Dependence Chief Complaint Phone Call - Chief Concern: Reason for call: Patient is requesting a refill on hydrocodone 5/325 ~How is medication taken? 1 pill BID ~How many are left? 8 pills left (last took 310 pm) Risk Assessment Score: LOW ~[place] Last Office Visit: 02/08/23 ~ pt phone # for Return call: [phone] ~Last Drug Screen: 11/29/22 ~Date/Initials: 06/04/23 AMANDEEP MOTA. History of Present Illness TRAVIS ANGUIANO is a 57 year old female. Pharmacy name:~location:[facility]. Current Medication - DULoxetine HCl 30 [...] Medical/Surgical History Reported: Injection/Nerve blocks, Pain Clinic, rn patient care, Physical therapy, Other method:, Please list all illnesses/conditions you have been diagnosed with: High blood pressure depression arthuis, and Please list all surgeries: 3c section 87?89?98 2006 partiasl [id number] ?2018 left and right hands and elbow [...] Date: 11/29/2022 Lot # & Exp. Date [id number] 06-24-23 Normal Amphetamines NEG Normal Barbiturates NEG [...] medMATCH Norhydrocodone CONSISTENT Opiates Comments - Test: PRESCRIBED DRUGS, medMATCH(R) Report [...] Assess Need for CT Lung Screen satisfied 06/04/2023. - Assess Tobacco Use satisfied 06/04/2023.
--- OUTSIDE RECORDS SUMMARY | 2024-06-11 17:21 | XMS_ITS | Clinical Summary ---
Author Organization [facility] Address [address] [place] [address] Phone Care Team Providers Care Ultrasound Coordinator Name Role Phone KALINA ANP-BC, RAFA Nguyễn Unavailable [phone] MICHELLE WAKEFIELD Primary Care Provider [phone] Reason for Visit and Chief Complaint RX ISSUE/REFILL Problems Includes: Problems addressed during this encounter and other active Problems All Visits Onset Date Resolved Date Provider Condition S tatus Carpal Tunnel Syndrome 07/05/2020 KENDAL E L KALINA ANP-BC Active Last Documented On 1 11:24AM ; [facility] Depression 07/05/2020 RAFA L AKLINA ANP-BC A ctive Last Documented On 11:24AM ; [facility] Chronic Low Back Pain 07/05/2020 RAFA L BLEVI NS ANP-BC Active Last Documented On 1 11:24AM ; [facility] Nicotine Dependence 07/05/2020 RAFA L KALINA ANP-BC Active Last Documented On 11:25AM ; [facility] Plan of Treatment No Plan of Treatment Recorded Assessments Includes: Assessments from this encounter No Assessments Recorded Medical Equipment - Implanted Devices Includes: Current Devices No Medical Equipment Recorded Medications Includes: Medications discussed during this encounter and other current Medications Discontinued / Stopped on this date KASH BUTT MD on 03/14/2023 HYDROcodone-Acetaminophen 5- 325 MG Oral Tablet Provider: KASH BUTT MD Diagnosis: Chronic pain syndrome Last Documented On 04/20/2023 5:03PM By Kash Butt MD ; [facility] New / Renewed during this visit KASH BUTT MD on 04/20/2023 HYDROcodone-Acetaminophen 5- 325 MG Oral Tablet Provider: KASH BUTT MD 15 day supply: 45 tablet, 0 refills Diagnosis: Chronic pain syndrome 1 po every 6-8 hours up to 3 times daily as needed, reduce use as pain improves Pharmacy: [facility] [address], [address] - Last Documented On 06/05/2023 9:17PM By Kash Btut MD ; [facility] Current Medications (continue as prescribed) HYDROcodone-Acetaminophen 5- 325 MG Oral Tablet 08/29/2023 Provider: KASH BUTT MD Diagnosis: Chronic pain syndrome 1 po every 6-8 hours up to 3 times daily as needed, reduce use as pain improves Last Documented On 08/29/2023 8:14AM By Kash Butt MD ; [facility] Meloxicam 15 MG Oral Tablet 11/29/2022 Provider: Diagnosis: 1/2 AM 1/2 PM Last Documented On 11/29/2022 3:41PM By Hollie GUADALUPE ; [facility] Tekturna HCT 300-12.5 MG Oral Tablet 11/29/2022 Prov ider: Diagnosis: Last Documented On 11/29/2022 3:43PM By Hollie GUADALUPE ; [facility] Trulicity 1.5 MG/0.5ML Subcutaneous Solution Pen-injec tor 11/29/2022 Provider: Diagnosis: 1 INJ WEEKLY Last Documented On 11/29/2022 3:42PM By Hollie GUADALUPE ; [facility] DULoxetine HCl 30 MG Oral Capsule Delayed Release Spri nkle 04/27/2022 Provider: Diagnosis: Last Documented On 3 4:30PM By Lora Sommer RN ; [facility] hydrOXYzine HCl 25 MG Oral Tablet 01/12/2022 Provide r: Diagnosis: Last Documented On 2 4:10PM By Lora Sommer RN ; [facility] Pregabalin 75 MG Oral Capsule 12/19/2021 Provider: KASH BUTT MD Diagnosis: TAKE 1 CAPSULE BY MOUTH TWICE A DAY Last Documented On 12/19/2021 7:38PM By Kash Butt MD ; [facility] Valtrex 500 MG Oral Tablet 07/05/2020 Provider: Diagnosis: Last Documented On 04/12/202 1 10:50AM By Re GUADALUPE ; [facility] Lisinopril 20 MG Oral Tablet 07/05/2020 Provider: Diagnosis: Last Documented On 1 10:49AM By Re GUADALUPE ; [facility] Medications Administered Includes: Administered Medications from this encounter No Administered Medications Recorded Results Includes: Results discussed during this encounter No Results Recorded For Specified Dates History of Present Illness Includes: History of Present Illness from this encounter STALIN ANGUIANO is a 57 year old female. Pharmacy name:~location: [facility]. Social History Description Last Updated Tobacco non-user 06/16/2021 Last Documented On 4 1:40PM ; [facility] Non-smoker 10/13/2020 Last Documented On 4 1:40PM ; [facility] Current nonsmoker 08/11/2020 Last Documented On 4 1:40PM ; [facility] [PHQ-2] Patient Health Questionnaire 2 i tem total score: 31 (Scale: 0-6) 07/05/2020 Last Documented On 4 1:40PM ; [facility] Alcohol 07/05/2020 Last Documented On 4 1:40PM ; [facility] Amount of alcohol per day: 3 07/05/2020 Last Documented On 4 1:40PM ; [facility] Difficulty walking 07/05/2020 Last Documented On 4 1:40PM ; [facility] Drug use 07/05/2020 Last Documented On 4 1:40PM ; [facility] Type: Marijuana 07/05/2020 Last Documented On 4 1:40PM ; [facility] Smoking Status Unknown Procedures and Surgical History Surgical History Last Updated No Pacemaker 07/05/2020 Last Documented On 4 1:40PM ; [facility] Medical History Includes: Medical History addressed during this encounter Description Last Updated insurance healthcare consultant 07/05/2020 Last Documented On 4 1:40PM ; [facility] CT/MRI 01/02/2020 01/02/2020 07/05/2020 Last Documented On 4 1:40PM ; [facility] Currently wearing eyeglasses 07/05/2020 Last Documented On 4 1:40PM ; [facility] Injection/Nerve blocks 07/05/2020 Last Documented On 4 1:40PM ; [facility] No Pain Pump 07/05/2020 Last Documented On 4 1:40PM ; [facility] No Spinal cord stimulator 07/05/2020 Last Documented On 4 1:40PM ; [facility] Other method: 07/05/2020 Last Documented On 4 1:40PM ; [facility] Pain Clinic 07/05/2020 Last Documented On 4 1:40PM ; [facility] Physical therapy 07/05/2020 Last Documented On 4 1:40PM ; [facility] Please list all illnesses/co nditions you have been diagnosed with High blood pressure depression arthuis 07/05/2020 Last Documented On 4 1:40PM ; [facility] Please list all surgeries 3c section 87?89?98 2007 partiasl [id number] ?2018 left and right hands and elbow carpual turnel 07/05/2020 Last Documented On 4 1:40PM ; [facility] Uses a cane for support 07/05/2020 Last Documented On 4 1:40PM ; [facility] Wearing contact lenses 07/05/2020 Last Documented On 4 1:40PM ; [facility] X-rays 01/27/2019 01/27/2019 07/05/2020 Last Documented On 4 1:40PM ; [facility] Family History Includes: Family History addressed during this encounter Description Last Updated Maternal history of family history of he art disease 07/05/2020 Last Documented On 4 1:40PM ; [facility] Maternal history of family history of is chemic heart disease 07/05/2020 Last Documented On 4 1:40PM ; [facility] Maternal history of stroke/paralysis 02/2021 Last Documented On 4 1:40PM ; [facility] Paternal history of Arthritis 07/05/2020 Last Documented On 4 1:40PM ; [facility] Paternal history of family history of he art disease 07/05/2020 Last Documented On 4 1:40PM ; [facility] Paternal history of family history of is chemic heart disease 07/05/2020 Last Documented On 4 1:40PM ; [facility] Review of Systems Includes: Review [...] Active Last Documented On 3 11:16AM ; [facility] Encounters Encounter Provider Location Date Check-In Time Check-Out Time Diagnosis RX ISSUE/REFILL KASH BUTT MD 04/20/2023 1:40PM 11:59PM Insurance Includes: Active Insurance Policies Plan Name Member ID Group # Subscriber Relationship Effect evelina Dates 1 - [facility] [id number] TRAVIS Arevalo [facility] Clinical Notes Includes: Clinical Notes from this encounter * Progress note Date Encounter Last Documented by 04/20/2023 RX ISSUE/REFILL Last documented on 04/20/2023; 5:03 PM, KASH BUTT MD; [facility] Active Problems & Conditions - Carpal Tunnel Syndrome - Chronic Low Back Pain - Depression - Nicotine Dependence Chief Complaint Phone Call - Chief Concern: Reason for call: Patient is requesting a refill on HYDROCODONE ~How is medication taken? BID ~How many are left? 6 Risk Assessment Score: ~[place]: 03/16/23 Last Office Visit: 02/08/23 ~ pt phone # for Return call: [phone] ~Last Drug Screen: 11/29/22 ~Date/Initials: 04/20/23 ZULMA. History of Present Illness TRAVIS ANGUIANO is a 57 year old female. Pharmacy name:~location: [facility]. Current Medication - DULoxetine HCl 30 MG [...] Medical/Surgical History Reported: Injection/Nerve blocks, Pain Clinic, insurance healthcare consultant, Physical therapy, Other method:, Please list all illnesses/conditions you have been diagnosed with: High blood pressure depression arthuis, and Please list all surgeries: 3c section 87?89?98 2006 partiasl [id number] ?2018 left and right hands and elbow [...] Assess Need for CT Lung Screen satisfied 04/20/2023. - Assess Tobacco Use satisfied 04/20/2023.
--- OUTSIDE RECORDS SUMMARY | 2024-06-11 17:21 | XMS_ITS | Encounter Summary ---
Author Organization [facility] Address [address] [place] [address] Care Team Providers Care Dust Puller Name Role Phone Unavailable Primary Care Provider Unavailabl e Encounter Details Date Type Department Care Team (Late st Contact Info) Description 10/17/2022 Lab Requisition [facility] - DermPath Lab [address], [facility] [place] [id number] Darby Thompson PA-C [address] [place] [address] Neoplasm of uncertain behavior of [...] 12:00 AM CDT) Case Report Dermatopathology Report Case: [id number] Authorizing Provider: Darby Thompson PA-C Collected: 10/16/2022 12:00 AM Ordering Location: [facility] DermPath Lab Received: 10/18/2022 01:57 PM Pathologist: Megan Will MD Specimens: A) - Skin, left side of groin B) - Skin, right side of groin C) - Skin, right arm D) - Skin, left breast 2:21 PM CDT DERMATOPATHOLOGY LABORATORY Final Diagnosis [...] POST-INFLAMMATORY PIGMENT ALTERATION (L81.9) 3 2:21 PM [facility] [place] 2[place] DERMATOPATHOLOGY LABORATORY Clinical History A-B, D: Atypical Nevus C: Irritated Nevus 3 2:21 PM [facility] [place] DERMATOPATHOLOGY LABORATORY Gross Description Specimen A: Received [...] 7x3x1 mm. Jar 0. 3 2:21 PM [facility] [place] 2[place] DERMATOPATHOLOGY LABORATORY Microscopic Description Specimen A. SKIN, [...] characteristic determined by the Dermatopathology Laboratory at [facility], directed by Dr. Cat Fernandez. These tests need not be, and therefore are not, approved by the [place] Food and Drug Administration. The tests are used for clinical purposes. Billing Codes Specimen Charges Stain Charges 38098 03008 [id number] 84639 1 1 1 1 49700 1 3 2:21 PM CDT DERMATOPATHOLOGY LABORATORY [...] LAB - PATHOLOGY/CYTO LOGY ORDERABLES DERMATOPATHOLOGY LABORATORY [facility] - Department of Dermatology [address] [place] [address], [facility] [phone] documented in this encounter Visit Diagnoses Diagnosis Neoplasm of uncertain behavior of skin documented in this encounter
--- OUTSIDE RECORDS SUMMARY | 2024-06-11 17:22 | XMS_ITS | Clinical Summary ---
Author Organization [facility] Address [address] [place] [address] Care Team Providers Care Car Seat Upholsterer Name Role Phone Lizy Tirado RN ORTHOPAEDICS Primary Care Provider [phone] Allergies No known active allergies Medications lisinopril [...] 80 08/25/2020 3:56 PM CDT Temperature 37.2 C (99 F) 08/24/2020 8:14 PM CDT Respiratory Rate 18 05/07/2020 1:14 PM BREAKING MACHINE OPERATOR Oxygen Saturation 100% 08/25/2020 3:56 PM CDT [...] patient's age to complete this topic Insurance [facility] Care Teams Car Seat Upholsterer Relationship Specialty Start Date End Date Lizy Tirado, FRANK [address] [place] [address] PCP - General NURSE PRACTITIONER 01/02/20
--- OUTSIDE RECORDS SUMMARY | 2024-06-11 17:22 | XMS_ITS | Encounter Summary ---
Author Organization [facility] Address [facility] [place] [address] Care Team Providers Care Janitor Cleaner Name Role Phone Lizy Tirado [employer]EC[employer]IVE Primary Care Provider + [phone] Encounter Details Date Type Department Care Team (Late st Contact Info) Description 05/24/2020 Telephone [facility] [place] [address] [phone] Jennifer Sy RN Social History Tobacco Use [...] COVID-19? No / Unsure 05/07/2020 11:50 AM MANAGER CAR documented as of this encounter Progress Notes [...] to call when pain returns and persists. GER CAR documented in this encounter Plan of Treatment Not on file documented as of this encounter Visit Diagnoses Not on filedocumented in this encounter Care Teams Janitor Cleaner Relationship Specialty Start Date End Date Lizy Tirado FNP [address] [place] [address] PCP - General NURSE PRACTITIONER 01/02/20 documented as of this encounter
--- OUTSIDE RECORDS SUMMARY | 2024-06-11 17:22 | XMS_ITS ---
Author Organization [facility] Address [address], [place] Phone Care Team Providers Care Lead Systems Developer Name Role Phone KALINA ANP-BC, RAFA L Unavailable [phone] MICHELLE WAKEFIELD Primary Care Provider [phone] Problems Includes: Active, inactive, and resolved Problems All Visits Onset Date Resolved Date Provider Condition S tatus Carpal Tunnel Syndrome 07/05/2020 KENDAL E L KALINA ANP-BC Active Last Documented On 11:24AM ; [facility] Depression 07/05/2020 RAFA L KALINA ANP-BC A ctive Last Documented On 11:24AM ; [facility] Chronic Low Back Pain 07/05/2020 RAFA L BLEVI NS ANP-BC Active Last Documented On 11:24AM ; [facility] Nicotine Dependence 07/05/2020 ARFA L KALINA ANP-BC Active Last Documented On 11:25AM ; [facility] Plan of Treatment Referrals To Diagnosis Pain Management [facility] - [address] [place] [address] - Sacroiliitis, not elsewhere classified Note: consent for right SI j oint injection Last Documented On 11:24AM ; [facility] Pain Management MARCUS BUTT MD - [address] [address] - Spondylosis w/o myelopathy or radiculopathy, lumbar region Note: Right L3-4, L4-5, L5-S 1 Facet joint steroid injections with fluoroscopy (#1 of 2)Left L3-4, L4-5, L5-S1 Facet joint steroid injections with fluoroscopy (#2 of 2)Not diabetic. No blood thinners. No hold ASA/NSAIDs. No PIV/Abx.F/U in 3-4 weeks after left side with Rafa or myself. Last Documented On 1 9:46AM ; [facility] Pain Management MARCUS BUTT MD [address] [address] - Sacroiliitis, not elsewhere classified Note: Diagnostic/Prognostic Right intrra-articular SI joint block with fluoroscopy.Not diabetic. No blood thinners. No PIV/ABX. F/U in 10-14 days. Last Documented On 1 11:35AM ; [facility] Pain Management MARCUS BUTT MD [address] [address] - Sacroiliitis, not elsewhere classified Note: Right SI joint arthrod esis with fluoroscopy (Omnia pSIf) (#2 of 2).Not diabetic. PIV/2g IV ancef OCTOR. Hold ASA/NSAIDS x 7 days. F/U in 7-10 days. Last Documented On 1 10:39AM ; [facility] Pain Management MARCUS BUTT MD [address] [address] - Sacroiliitis, not elsewhere classified Note: Right Diagnsotic Intra -articular SI joint injection nder fluoro.No PIV. No Abx. No hold ASA/NSAIDs.F/u in 7-10 days. Last Documented On 2 2:02PM ; [facility] Pain Management MARCUS BUTT MD [address] [address] - Sacroiliitis, not elsewhere classified Note: Left SI joint intra-ar ticular block under fluoroscopic guidance>(to be perfromed concomittantly with Right side due to severe exacerbation of left sided pain with exam conistent with left sacroiliitis).Not diabetic. No blood thinners. No hold ASA/NSAIDs.F/U in 2-3 weeks. Last Documented On 2 1:59PM ; [facility] Pain Management [address] [address] - Sacroiliitis, not elsewhere classified Note: Bilateral SI joint areli roid injection with Fluroscopy.Not diabetic. No blood thinners. No hold ASA/NSAIDs.F/U in 2-3 weeks. Last Documented On 2 1:27PM ; [facility] Pain Management MARCUS BUTT MD - [address] [phone] - Sacroiliitis, not elsewhere classified Note: Bilateral SI joint areli roid injection with fluoroscopy.Not diabetic. No blod thinnners. No hold ASWA/NSAIDs. No PIV/Abx.F/U in 3 months Last Documented On 3 12:52PM ; [facility] Pain Management [address] [address] - Sacroiliitis, not elsewhere classified Note: Bilateral SI joint areli roid injection w/ Fluoroscopy.Not diabetic. No blood thinners. No hold NSAIDs.ASA. No PIV/Abx.F/U in 2-3 weeks. Last Documented On 3 1:05PM ; [facility] Pain Management [address] [phone] - Oth dorsopathies, sacral and sacrococcygeal region Note: Coccygeal joint steroi d injections x3, bilateral coccygeal nerve blocks under fluroscopy.No blood thinners. No diabetic. No hold ASA/NSAIDS.F/U in 2-3 weeks, Last Documented On 3 1:04PM ; [facility] Education and Decision Aids were provided during visit for: Pill Count: 38 Appropriate Last Documented On 3 11:14AM ; [facility] Pill Count: 26 Last Documented On 3 3:46PM ; [facility] Pill Count: 18 Appropriate Last Documented On 3 2:50PM ; [facility] Pill Count: 21 Appropriate Last Documented On 3 4:35PM ; [facility] Pill Count: 0.5 Appropriate Last Documented On 2 4:07PM ; [facility] Pill Count: six Not Appropri ate Last Documented On 2 9:52AM ; [facility] Pill Count: eleven Appropria te Last Documented On 2 9:57AM ; [facility] Pill Count: 28 Appropriate Last Documented On 2 2:25PM ; [facility] Pill Count: 0 Appropriate Last Documented On 2 5:04PM ; [facility] Pill Count: eight Appropriat e Last Documented On 1 10:47AM ; [facility] Pill Count: Patient did not bring pain medication to appointment for pill count, per policy. Advised in order to continue to safely prescribe opioids, medication must be brought to each appointment Last Documented On 1 11:15AM ; [facility] Pill Count: three Appropriat e Last Documented On 1 11:19AM ; [facility] Pill Count: 20 Appropriate Last Documented On 1 9:38AM ; [facility] Pill Count: 0 Appropriate Last Documented On 1 9:38AM ; [facility] Pill Count: Patient did not bring pain medication to appointment for pill count, per policy. Advised in order to continue to safely prescribe opioids, medication must be brought to each appointment Last Documented On 1 9:33AM ; [facility] Pill Count: 19 Appropriate Last Documented On 1 9:40AM ; [facility] Pill Count: Patient did not bring pain medication to appointment for pill count, per policy. Advised in order to continue to safely prescribe opioids, medication must be brought to each appointment Last Documented On 1 9:54AM ; [facility] Assessments Includes: Assessments for all patient encounters Findings Encounter Date Cervical radiculopathy PAIN MANAGEMENT FOLLOW UP with MARCUS BUTT MD 02/08/2023 Last Documented On 3 1:05PM ; [facility] Cervicalgia PAIN MANAGEMENT FOLLOW UP with Hannah BUTT MD 02/08/2023 Last Documented On 3 1:05PM ; [facility] Chronic pain syndrome PAIN MANAGEMENT FOLLOW UP with MARCUS BUTT MD 02/08/2023 Last Documented On 3 1:05PM ; [facility] DORSALGIA PAIN MANAGEMENT FOLLOW UP with Hannah BUTT MD 02/08/2023 Last Documented On 3 1:05PM ; [facility] Injury of coccyx PAIN MANAGEMENT FOLLOW UP with MARCUS BUTT MD 02/08/2023 Last Documented On 3 1:05PM ; [facility] Localized lumbar osteoarthritis PAIN MAN AGEMENT FOLLOW UP with MARCUS BUTT MD 02/08/2023 Last Documented On 3 1:05PM ; [facility] Myalgia PAIN MANAGEMENT FOLLOW UP with Hannah BUTT MD 02/08/2023 Last Documented On 3 1:05PM ; [facility] Sacral and sacrococcygeal dorsopathy RAYRAY N MANAGEMENT FOLLOW UP with MARCUS BUTT MD 02/08/2023 Last Documented On 3 1:05PM ; [facility] Sacroiliitis PAIN MANAGEMENT FOLLOW UP with Hannah BUTT MD 02/08/2023 Last Documented On 3 1:05PM ; [facility] SPINAL STENOSIS LUMBAR REGIO N W/O NEUROGENIC CLAUDICATION PAIN MANAGEMENT FOLLOW UP with MARCUS BUTT MD 02/08/2023 Last Documented On 3 1:05PM ; [facility] Cervical radiculopathy TELEHEALTH with MARCUS BUTT MD 01/11/2023 Last Documented On 3 4:19PM ; [facility] Cervicalgia TELEHEALTH with MARCUS Shay 01/11/2023 Last Documented On 3 4:19PM ; [facility] Chronic pain syndrome TELEHEALTH with MARCUS BUTT MD 01/11/2023 Last Documented On 3 4:19PM ; [facility] DORSALGIA TELEHEALTH with MARCUS Shay 01/11/2023 Last Documented On 3 4:19PM ; [facility] Injury of coccyx TELEHEALTH with MARCUS BUTT MD 01/11/2023 Last Documented On 3 4:19PM ; [facility] Localized lumbar osteoarthritis TELEHEALTH with MARCUS BUTT MD 01/11/2023 Last Documented On 3 4:19PM ; [facility] Myalgia TELEHEALTH with MARCUS Shay 01/11/2023 Last Documented On 3 4:19PM ; [facility] Sacral and sacrococcygeal dorsopathy TELEHEALTH with MARCUS BUTT MD 01/11/2023 Last Documented On 3 4:19PM ; [facility] Sacroiliitis TELEHEALTH with MARCUS Shay 01/11/2023 Last Documented On 3 4:19PM ; [facility] SPINAL STENOSIS LUMBAR REGIO N W/O NEUROGENIC CLAUDICATION TELEHEALTH with MARCUS BUTT MD 01/11/2023 Last Documented On 3 4:19PM ; [facility] Cervical radiculopathy PAIN MANAGEMENT FOLLOW UP with MARCUS BUTT MD 11/29/2022 Last Documented On 3 5:44PM ; [facility] Cervicalgia PAIN MANAGEMENT FOLLOW UP with Hannah BUTT MD 11/29/2022 Last Documented On 3 5:44PM ; [facility] Chronic pain syndrome PAIN MANAGEMENT FOLLOW UP with MARCUS BUTT MD 11/29/2022 Last Documented On 3 5:44PM ; [facility] DORSALGIA PAIN MANAGEMENT FOLLOW UP with Hannah BUTT MD 11/29/2022 Last Documented On 3 5:44PM ; [facility] Injury of coccyx PAIN MANAGEMENT FOLLOW UP with MARCUS BUTT MD 11/29/2022 Last Documented On 3 5:44PM ; [facility] Localized lumbar osteoarthritis PAIN MAN AGEMENT FOLLOW UP with MARCUS BUTT MD 11/29/2022 Last Documented On 3 5:44PM ; [facility] Myalgia PAIN MANAGEMENT FOLLOW UP with Hannah BUTT MD 11/29/2022 Last Documented On 3 5:44PM ; [facility] Sacral and sacrococcygeal dorsopathy RAYRAY N MANAGEMENT FOLLOW UP with MARCUS BUTT MD 11/29/2022 Last Documented On 3 5:44PM ; [facility] Sacroiliitis PAIN MANAGEMENT FOLLOW UP with Hannah BUTT MD 11/29/2022 Last Documented On 3 5:44PM ; [facility] SPINAL STENOSIS LUMBAR REGIO N W/O NEUROGENIC CLAUDICATION PAIN MANAGEMENT FOLLOW UP with MARCUS BUTT MD 11/29/2022 Last Documented On 3 5:44PM ; [facility] Cervical radiculopathy PAIN MANAGEMENT FOLLOW UP with MARCUS BUTT MD 06/08/2022 Last Documented On 3 12:45PM ; [facility] Cervicalgia PAIN MANAGEMENT FOLLOW UP with Hannah BUTT MD 06/08/2022 Last Documented On 3 12:45PM ; [facility] Chronic pain syndrome PAIN MANAGEMENT FOLLOW UP with MARCUS BUTT MD 06/08/2022 Last Documented On 3 12:45PM ; [facility] DORSALGIA PAIN MANAGEMENT FOLLOW UP with Hannah BUTT MD 06/08/2022 Last Documented On 3 12:45PM ; [facility] Injury of coccyx PAIN MANAGEMENT FOLLOW UP with MARCUS BUTT MD 06/08/2022 Last Documented On 3 12:45PM ; [facility] Localized lumbar osteoarthritis PAIN MAN AGEMENT FOLLOW UP with MARCUS BUTT MD 06/08/2022 Last Documented On 3 12:45PM ; [facility] Myalgia PAIN MANAGEMENT FOLLOW UP with Hannah BUTT MD 06/08/2022 Last Documented On 3 12:45PM ; [facility] Sacral and sacrococcygeal dorsopathy RAYRAY N MANAGEMENT FOLLOW UP with MARCUS BUTT MD 06/08/2022 Last Documented On 3 12:45PM ; [facility] Sacroiliitis PAIN MANAGEMENT FOLLOW UP with Hannah BUTT MD 06/08/2022 Last Documented On 3 12:45PM ; [facility] SPINAL STENOSIS LUMBAR REGIO N W/O NEUROGENIC CLAUDICATION PAIN MANAGEMENT FOLLOW UP with MARCUS BUTT MD 06/08/2022 Last Documented On 3 12:45PM ; [facility] Cervical radiculopathy PAIN MANAGEMENT FOLLOW UP with MACRUS BUTT MD 05/24/2022 Last Documented On 3 7:05AM ; [facility] Cervicalgia PAIN MANAGEMENT FOLLOW UP with Hannah BUTT MD 05/24/2022 Last Documented On 3 7:05AM ; [facility] Chronic pain syndrome PAIN MANAGEMENT FOLLOW UP with MARCUS BUTT MD 05/24/2022 Last Documented On 3 7:05AM ; [facility] DORSALGIA PAIN MANAGEMENT FOLLOW UP with Hannah BUTT MD 05/24/2022 Last Documented On 3 7:05AM ; [facility] Injury of coccyx PAIN MANAGEMENT FOLLOW UP with MARCUS BUTT MD 05/24/2022 Last Documented On 3 7:05AM ; [facility] Localized lumbar osteoarthritis PAIN MAN AGEMENT FOLLOW UP with MARCUS BUTT MD 05/24/2022 Last Documented On 3 7:05AM ; [facility] Myalgia PAIN MANAGEMENT FOLLOW UP with Hannah BUTT MD 05/24/2022 Last Documented On 3 7:05AM ; [facility] Sacral and sacrococcygeal dorsopathy RAYRAY N MANAGEMENT FOLLOW UP with MARCUS BUTT MD 05/24/2022 Last Documented On 3 7:05AM ; [facility] Sacroiliitis PAIN MANAGEMENT FOLLOW UP with Hannah BUTT MD 05/24/2022 Last Documented On 3 7:05AM ; [facility] SPINAL STENOSIS LUMBAR REGIO N W/O NEUROGENIC CLAUDICATION PAIN MANAGEMENT FOLLOW UP with MARCUS BUTT MD 05/24/2022 Last Documented On 3 7:05AM ; [facility] Cervical radiculopathy PAIN MANAGEMENT FOLLOW UP with MARCUS BUTT MD 04/27/2022 Last Documented On 3 4:59PM ; [facility] Cervicalgia PAIN MANAGEMENT FOLLOW UP with Hannah BUTT MD 04/27/2022 Last Documented On 3 4:59PM ; [facility] Chronic pain syndrome PAIN MANAGEMENT FOLLOW UP with MARCUS BUTT MD 04/27/2022 Last Documented On 3 4:59PM ; [facility] DORSALGIA PAIN MANAGEMENT FOLLOW UP with Hannah BUTT MD 04/27/2022 Last Documented On 3 4:59PM ; [facility] Injury of coccyx PAIN MANAGEMENT FOLLOW UP with MARCUS BUTT MD 04/27/2022 Last Documented On 3 4:59PM ; [facility] Localized lumbar osteoarthritis PAIN MAN AGEMENT FOLLOW UP with MARCUS BUTT MD 04/27/2022 Last Documented On 3 4:59PM ; [facility] Myalgia PAIN MANAGEMENT FOLLOW UP with Hannah BUTT MD 04/27/2022 Last Documented On 3 4:59PM ; [facility] Sacral and sacrococcygeal dorsopathy RAYRAY N MANAGEMENT FOLLOW UP with MARCUS BUTT MD 04/27/2022 Last Documented On 3 4:59PM ; [facility] Sacroiliitis PAIN MANAGEMENT FOLLOW UP with Hannah BUTT MD 04/27/2022 Last Documented On 3 4:59PM ; [facility] SPINAL STENOSIS LUMBAR REGIO N W/O NEUROGENIC CLAUDICATION PAIN MANAGEMENT FOLLOW UP with MARCUS BUTT MD 04/27/2022 Last Documented On 3 4:59PM ; [facility] Cervical radiculopathy PAIN MANAGEMENT FOLLOW UP with MARCUS BUTT MD 01/12/2022 Last Documented On 2 9:38AM ; [facility] Cervicalgia PAIN MANAGEMENT FOLLOW UP with Hannah BUTT MD 01/12/2022 Last Documented On 2 9:38AM ; [facility] Chronic pain syndrome PAIN MANAGEMENT FOLLOW UP with MARCUS BUTT MD 01/12/2022 Last Documented On 2 9:38AM ; [facility] DORSALGIA PAIN MANAGEMENT FOLLOW UP with Hannah BUTT MD 01/12/2022 Last Documented On 2 9:38AM ; [facility] Injury of coccyx PAIN MANAGEMENT FOLLOW UP with MARCUS BUTT MD 01/12/2022 Last Documented On 2 9:38AM ; [facility] Localized lumbar osteoarthritis PAIN MAN AGEMENT FOLLOW UP with MARCUS BUTT MD 01/12/2022 Last Documented On 2 9:38AM ; [facility] Myalgia PAIN MANAGEMENT FOLLOW UP with Hannah BUTT MD 01/12/2022 Last Documented On 2 9:38AM ; [facility] Sacral and sacrococcygeal dorsopathy RAYRAY N MANAGEMENT FOLLOW UP with MARCUS BUTT MD 01/12/2022 Last Documented On 2 9:38AM ; [facility] Sacroiliitis PAIN MANAGEMENT FOLLOW UP with Hannah BUTT MD 01/12/2022 Last Documented On 2 9:38AM ; [facility] SPINAL STENOSIS LUMBAR REGIO N W/O NEUROGENIC CLAUDICATION PAIN MANAGEMENT FOLLOW UP with MARCUS BUTT MD 01/12/2022 Last Documented On 2 9:38AM ; [facility] Cervical radiculopathy PAIN MANAGEMENT FOLLOW UP with MARCUS BUTT MD 10/20/2021 Last Documented On 2 12:11PM ; [facility] Cervicalgia PAIN MANAGEMENT FOLLOW UP with Hannah BUTT MD 10/20/2021 Last Documented On 2 12:11PM ; [facility] Chronic pain syndrome PAIN MANAGEMENT FOLLOW UP with MARCUS BUTT MD 10/20/2021 Last Documented On 2 12:11PM ; [facility] DORSALGIA PAIN MANAGEMENT FOLLOW UP with Hananh BUTT MD 10/20/2021 Last Documented On 2 12:11PM ; [facility] Injury of coccyx PAIN MANAGEMENT FOLLOW UP with MARCUS BUTT MD 10/20/2021 Last Documented On 2 12:11PM ; [facility] Localized lumbar osteoarthritis PAIN MAN AGEMENT FOLLOW UP with MARCUS BUTT MD 10/20/2021 Last Documented On 2 12:11PM ; [facility] Myalgia PAIN MANAGEMENT FOLLOW UP with Hannah BUTT MD 10/20/2021 Last Documented On 2 12:11PM ; [facility] Sacral and sacrococcygeal dorsopathy RAYRAY N MANAGEMENT FOLLOW UP with MARCUS BUTT MD 10/20/2021 Last Documented On 2 12:11PM ; [facility] Sacroiliitis PAIN MANAGEMENT FOLLOW UP with Hannah BUTT MD 10/20/2021 Last Documented On 2 12:11PM ; [facility] SPINAL STENOSIS LUMBAR REGIO N W/O NEUROGENIC CLAUDICATION PAIN MANAGEMENT FOLLOW UP with MARCUS BUTT MD 10/20/2021 Last Documented On 2 12:11PM ; [facility] Cervical radiculopathy PAIN MANAGEMENT FOLLOW UP with MARCUS BUTT MD 09/15/2021 Last Documented On 2 11:53AM ; [facility] Cervicalgia PAIN MANAGEMENT FOLLOW UP with Hannah BUTT MD 09/15/2021 Last Documented On 2 11:53AM ; [facility] Chronic pain syndrome PAIN MANAGEMENT FOLLOW UP with MARCUS BUTT MD 09/15/2021 Last Documented On 2 11:53AM ; [facility] Localized lumbar osteoarthritis PAIN MAN AGEMENT FOLLOW UP with MARCUS BUTT MD 09/15/2021 Last Documented On 2 11:53AM ; [facility] Myalgia PAIN MANAGEMENT FOLLOW UP with Hannah BUTT MD 09/15/2021 Last Documented On 2 11:53AM ; [facility] Sacroiliitis PAIN MANAGEMENT FOLLOW UP with Hannah BUTT MD 09/15/2021 Last Documented On 2 11:53AM ; [facility] SPINAL STENOSIS LUMBAR REGIO N W/O NEUROGENIC CLAUDICATION PAIN MANAGEMENT FOLLOW UP with MARCUS BUTT MD 09/15/2021 Last Documented On 2 11:53AM ; [facility] Cervical radiculopathy PAIN MANAGEMENT FOLLOW UP with MARCUS BUTT MD 06/16/2021 Last Documented On 2 11:23AM ; [facility] Cervicalgia PAIN MANAGEMENT FOLLOW UP with Hannah BUTT MD 06/16/2021 Last Documented On 2 11:23AM ; [facility] Chronic pain syndrome PAIN MANAGEMENT FOLLOW UP with MARCUS BUTT MD 06/16/2021 Last Documented On 2 11:23AM ; [facility] Localized lumbar osteoarthritis PAIN MAN AGEMENT FOLLOW UP with MARCUS BUTT MD 06/16/2021 Last Documented On 2 11:23AM ; [facility] Myalgia PAIN MANAGEMENT FOLLOW UP with Hannah BUTT MD 06/16/2021 Last Documented On 2 11:23AM ; [facility] Sacroiliitis PAIN MANAGEMENT FOLLOW UP with Hannah BUTT MD 06/16/2021 Last Documented On 2 11:23AM ; [facility] SPINAL STENOSIS LUMBAR REGIO N W/O NEUROGENIC CLAUDICATION PAIN MANAGEMENT FOLLOW UP with MARCUS BUTT MD 06/16/2021 Last Documented On 2 11:23AM ; [facility] Cervical radiculopathy PAIN MANAGEMENT FOLLOW UP with MARCUS BUTT MD 04/20/2021 Last Documented On 2 6:03PM ; [facility] Cervicalgia PAIN MANAGEMENT FOLLOW UP with Hannah BUTT MD 04/20/2021 Last Documented On 2 6:03PM ; [facility] Chronic pain syndrome PAIN MANAGEMENT FOLLOW UP with MARCUS BUTT MD 04/20/2021 Last Documented On 2 6:03PM ; [facility] Localized lumbar osteoarthritis PAIN MAN AGEMENT FOLLOW UP with MARCUS BUTT MD 04/20/2021 Last Documented On 2 6:03PM ; [facility] Myalgia PAIN MANAGEMENT FOLLOW UP with Hannah BUTT MD 04/20/2021 Last Documented On 2 6:03PM ; [facility] Sacroiliitis PAIN MANAGEMENT FOLLOW UP with Hannah BUTT MD 04/20/2021 Last Documented On 2 6:03PM ; [facility] SPINAL STENOSIS LUMBAR REGIO N W/O NEUROGENIC CLAUDICATION PAIN MANAGEMENT FOLLOW UP with MARCUS BUTT MD 04/20/2021 Last Documented On 2 6:03PM ; [facility] Cervical radiculopathy PAIN MANAGEMENT FOLLOW UP with MARCUS BUTT MD 02/23/2021 Last Documented On 1 7:07PM ; [facility] Cervicalgia PAIN MANAGEMENT FOLLOW UP with Hannah BUTT MD 02/23/2021 Last Documented On 1 7:07PM ; [facility] Chronic pain syndrome PAIN MANAGEMENT FOLLOW UP with MARCUS BUTT MD 02/23/2021 Last Documented On 1 7:07PM ; [facility] Localized lumbar osteoarthritis PAIN MAN AGEMENT FOLLOW UP with MARCUS BUTT MD 02/23/2021 Last Documented On 7:07PM ; [facility] Myalgia PAIN MANAGEMENT FOLLOW UP with Hannah BUTT MD 02/23/2021 Last Documented On 7:07PM ; [facility] Sacroiliitis PAIN MANAGEMENT FOLLOW UP with Hannah BUTT MD 02/23/2021 Last Documented On 7:07PM ; [facility] SPINAL STENOSIS LUMBAR REGIO N W/O NEUROGENIC CLAUDICATION PAIN MANAGEMENT FOLLOW UP with MARCUS BUTT MD 02/23/2021 Last Documented On 7:07PM ; [facility] [facility] Chronic pain syndrome PAIN MANAGEMENT FOLLOW UP with MARCUS BUTT MD 01/19/2021 Last Documented On 12:04PM ; [facility] Localized lumbar osteoarthritis PAIN MAN AGEMENT FOLLOW UP with MARCUS BUTT MD 01/19/2021 Last Documented On 12:04PM ; [facility] Myalgia PAIN MANAGEMENT FOLLOW UP with Hannah BUTT MD 01/19/2021 Last Documented On 12:04PM ; [facility] Sacroiliitis PAIN MANAGEMENT FOLLOW UP with Hannah BUTT MD 01/19/2021 Last Documented On 12:04PM ; [facility] SPINAL STENOSIS LUMBAR REGIO N W/O NEUROGENIC CLAUDICATION PAIN MANAGEMENT FOLLOW UP with MARCUS BUTT MD 01/19/2021 Last Documented On 12:04PM ; [facility] Chronic pain syndrome PAIN MANAGEMENT FOLLOW UP with MARCUS BUTT MD 10/13/2020 Last Documented On 1 10:31AM ; [facility] Localized lumbar osteoarthritis PAIN MAN AGEMENT FOLLOW UP with MARCUS BUTT MD 10/13/2020 Last Documented On 10:31AM ; [facility] Myalgia PAIN MANAGEMENT FOLLOW UP with Hannah BUTT MD 10/13/2020 Last Documented On 1 10:31AM ; [facility] Sacroiliitis PAIN MANAGEMENT FOLLOW UP with Hannah BUTT MD 10/13/2020 Last Documented On 1 10:31AM ; [facility] SPINAL STENOSIS LUMBAR REGIO N W/O NEUROGENIC CLAUDICATION PAIN MANAGEMENT FOLLOW UP with MARCUS BUTT MD 10/13/2020 Last Documented On 1 10:31AM ; [facility] Chronic pain syndrome PAIN MANAGEMENT FOLLOW UP with MARCUS BUTT MD 08/11/2020 Last Documented On 1 10:58AM ; [facility] Localized lumbar osteoarthritis PAIN MAN AGEMENT FOLLOW UP with MARCUS BUTT MD 08/11/2020 Last Documented On 1 10:58AM ; [facility] Myalgia PAIN MANAGEMENT FOLLOW UP with Hannah BUTT MD 08/11/2020 Last Documented On 1 10:58AM ; [facility] Sacroiliitis PAIN MANAGEMENT FOLLOW UP with Hannah BUTT MD 08/11/2020 Last Documented On 1 10:58AM ; [facility] SPINAL STENOSIS LUMBAR REGIO N W/O NEUROGENIC CLAUDICATION PAIN MANAGEMENT FOLLOW UP with MARCUS BUTT MD 08/11/2020 Last Documented On 1 10:58AM ; [facility] Chronic pain syndrome PAIN MANAGEMENT NE W CONSULT with RAFA BARRON-BC 07/05/2020 Last Documented On 1 7:54PM ; [facility] Localized lumbar osteoarthritis PAIN MAN AGEMENT NEW CONSULT with RAFA GILMAN ANP-BC 07/05/2020 Last Documented On 1 7:54PM ; [facility] Myalgia PAIN MANAGEMENT NEW CONSULT with RAFA GILMAN ANP-BC 07/05/2020 Last Documented On 1 7:54PM ; [facility] Sacroiliitis PAIN MANAGEMENT NEW CONSULT with RAFA GILMAN ANP-BC 07/05/2020 Last Documented On 1 7:54PM ; [facility] SPINAL STENOSIS LUMBAR REGIO N W/O NEUROGENIC CLAUDICATION PAIN MANAGEMENT NEW CONSULT with RAFA GILMAN ANP-BC 07/05/2020 Last Documented On 1 7:54PM ; [facility] Instructions Includes: Instructions for all patient encounters Education and Decision Aids were provided during visit for: Pill Count: 38 Appropriate Last Documented On 3 11:14AM ; [facility] Pill Count: 26 Last Documented On 3 3:46PM ; [facility] Pill Count: 18 Appropriate Last Documented On 3 2:50PM ; [facility] Pill Count: 21 Appropriate Last Documented On 3 4:35PM ; [facility] Pill Count: 0.5 Appropriate Last Documented On 2 4:07PM ; [facility] Pill Count: six Not Appropri ate Last Documented On 2 9:52AM ; [facility] Pill Count: eleven Appropria te Last Documented On 2 9:57AM ; [facility] Pill Count: 28 Appropriate Last Documented On 2 2:25PM ; [facility] Pill Count: 0 Appropriate Last Documented On 2 5:04PM ; [facility] Pill Count: eight Appropriat e Last Documented On 1 10:47AM ; [facility] Pill Count: Patient did not bring pain medication to appointment for pill count, per policy. Advised in order to continue to safely prescribe opioids, medication must be brought to each appointment Last Documented On 1 11:15AM ; [facility] Pill Count: three Appropriat e Last Documented On 1 11:19AM ; [facility] Pill Count: 20 Appropriate Last Documented On 1 9:38AM ; [facility] Pill Count: 0 Appropriate Last Documented On 1 9:38AM ; [facility] Pill Count: Patient did not bring pain medication to appointment for pill count, per policy. Advised in order to continue to safely prescribe opioids, medication must be brought to each appointment Last Documented On 1 9:33AM ; [facility] Pill Count: 19 Appropriate Last Documented On 1 9:40AM ; [facility] Pill Count: Patient did not bring pain medication to appointment for pill count, per policy. Advised in order to continue to safely prescribe opioids, medication must be brought to each appointment Last Documented On 1 9:54AM ; [facility] Medical Equipment - Implanted Devices Includes: Current and historical Devices No Medical Equipment Recorded Medications Includes: Current and historical Medications Current Medications (continue as prescribed) HYDROcodone-Acetaminophen 5- 325 MG Oral Tablet 08/29/2023 Provider: MARCUS BUTT MD Diagnosis: Chronic pain syndrome 1 po every 6-8 hours up to 3 times daily as needed, reduce use as pain improves Last Documented On 08/29/2023 8:14AM By Marcus Butt MD ; [facility] Meloxicam 15 MG Oral Tablet 11/29/2022 Provider: Diagnosis: 1/2 AM 1/2 PM Last Documented On 11/29/2022 3:41PM By Hollie GUADALUPE ; [facility] Tekturna HCT 300-12.5 MG Oral Tablet 11/29/2022 Prov ider: Diagnosis: Last Documented On 11/29/2022 3:43PM By Hollie GUADALUPE ; [facility] Trulicity 1.5 MG/0.5ML Subcutaneous Solution Pen-injec tor 11/29/2022 Provider: Diagnosis: 1 INJ WEEKLY Last Documented On 11/29/2022 3:42PM By Hollie GUADALUPE ; [facility] DULoxetine HCl 30 MG Oral Capsule Delayed Release Spri nkle 04/27/2022 Provider: Diagnosis: Last Documented On 3 4:30PM By Lora Sommer RN ; [facility] hydrOXYzine HCl 25 MG Oral Tablet 01/12/2022 Provide r: Diagnosis: Last Documented On 2 4:10PM By Lora Sommer RN ; [facility] Pregabalin 75 MG Oral Capsule 12/19/2021 Provider: MARCUS BUTT MD Diagnosis: TAKE 1 CAPSULE BY MOUTH TWICE A DAY Last Documented On 12/19/2021 7:38PM By Marcus Butt MD ; [facility] Valtrex 500 MG Oral Tablet 07/05/2020 Provider: Diagnosis: Last Documented On 1 10:50AM By Re GUADALUPE ; [facility] Lisinopril 20 MG Oral Tablet 07/05/2020 Provider: Diagnosis: Last Documented On 1 10:49AM By Re GUADALUPE ; [facility] Past Medications on file HYDROcodone-Acetaminophen 5- 325 MG Oral Tablet 07/13/2023 - 08/24/2023 Provider: MARCUS BUTT MD Diagnosis: Chronic pain syndrome 1 po every 6-8 hours up to 3 times daily as needed, reduce use as pain improves Last Documented On 08/29/2023 8:08AM By Marcus Butt MD ; [facility] HYDROcodone-Acetaminophen 5- 325 MG Oral Tablet 06/05/2023 - 07/13/2023 Provider: MARCUS BUTT MD Diagnosis: Chronic pain syndrome 1 po every 6-8 hours up to 3 times daily as needed, reduce use as pain improves Last Documented On 07/13/2023 2:52PM By Marcus Butt MD ; [facility] HYDROcodone-Acetaminophen 5- 325 MG Oral Tablet 04/20/2023 - 06/04/2023 Provider: MARCUS BUTT MD Diagnosis: Chronic pain syndrome 1 po every 6-8 hours up to 3 times daily as needed, reduce use as pain improves Last Documented On 06/05/2023 9:17PM By Marcus Butt MD ; [facility] HYDROcodone-Acetaminophen 5- 325 MG Oral Tablet 03/14/2023 - 04/20/2023 Provider: MARCUS BUTT MD Diagnosis: Chronic pain syndrome 1 po every 6-8 hours up to 3 times daily as needed, reduce use as pain improves Last Documented On 04/20/2023 5:03PM By Marcus Butt MD ; [facility] HYDROcodone-Acetaminophen 5- 325 MG Oral Tablet 01/12/2023 - 03/14/2023 Provider: MARCUS BUTT MD Diagnosis: Chronic pain syndrome 1 po every 6-8 hours up to 3 times daily as needed, reduce use as pain improves Last Documented On 03/14/2023 2:01PM By Marcus Butt MD ; [facility] HYDROcodone-Acetaminophen 5- 325 MG Oral Tablet 11/09/2022 - 01/11/2023 Provider: MARCUS BUTT MD Diagnosis: Chronic pain syndrome 1 po every 6-8 hours up to 3 times daily as needed, reduce use as pain improves Last Documented On 01/12/2023 10:31AM By Marcus Butt MD ; [facility] HYDROcodone-Acetaminophen 5- 325 MG Oral Tablet 06/22/2022 - 11/09/2022 Provider: MARCUS BUTT MD Diagnosis: Chronic pain syndrome 1 po every 6-8 hours up to 3 times daily as needed, reduce use as pain improves Last Documented On 11/09/2022 1:08PM By Marcus Butt MD ; [facility] HYDROcodone-Acetaminophen 5- 325 MG Oral Tablet 06/21/2022 - 06/21/2022 Provider: MARCUS BUTT MD Diagnosis: Chronic pain syndrome 1 po every 6-8 hours up to 3 times daily as needed, reduce use as pain improves Last Documented On 06/22/2022 4:27AM By Marcus Butt MD ; [facility] HYDROcodone-Acetaminophen 5- 325 MG Oral Tablet 04/19/2022 - 06/21/2022 Provider: MARCUS BUTT MD Diagnosis: Chronic pain syndrome 1 po every 6-8 hours up to 3 times daily as needed, reduce use as pain improves Last Documented On 06/21/2022 3:29PM By Marcus Butt MD ; [facility] HYDROcodone-Acetaminophen 5- 325 MG Oral Tablet 03/17/2022 - 04/19/2022 Provider: MARCUS BUTT MD Diagnosis: Chronic pain syndrome 1 po every 6-8 hours up to 3 times daily as needed, reduce use as pain improves Last Documented On 04/19/2022 5:20PM By Marcus Butt MD ; [facility] Celecoxib 200 MG Oral Capsule 03/13/2022 - 05/24/2022 Provider: MARCUS BUTT MD Diagnosis: Unspecified inju ry of pelvis, initial encounter TAKE 1 CAPSULE BY MOUTH EVER Y MORNING WITH FOOD AND WATER FOR LOW BACK PAIN Last Documented On 05/24/2022 2:50PM By Hollie GUADALUPE ; [facility] HYDROcodone-Acetaminophen 5- 325 MG Oral Tablet 02/21/2022 - 03/17/2022 Provider: MARCUS BUTT MD Diagnosis: Chronic pain syndrome 1 po every 6-8 hours up to 3 times daily as needed, reduce use as pain improves Last Documented On 03/17/2022 10:12AM By Marcus Butt MD ; [facility] HYDROcodone-Acetaminophen 5- 325 MG Oral Tablet 01/16/2022 - 02/20/2022 Provider: MARCUS BUTT MD Diagnosis: Chronic pain syndrome 1 po every 6-8 hours up to 3 times daily as needed, reduce use as pain improves Last Documented On 02/21/2022 10:09AM By Marcus Butt MD ; [facility] Celecoxib 200 MG Oral Capsule 01/04/2022 - 03/13/2022 Provider: MARCUS BUTT MD Diagnosis: Unspecified inju ry of pelvis, initial encounter TAKE 1 CAPSULE BY MOUTH EVER Y MORNING WITH FOOD AND WATER FOR LOW BACK PAIN Last Documented On 03/13/2022 3:50PM By Marcus Butt MD ; [facility] Celecoxib 200 MG Oral Capsule 12/02/2021 - 01/04/2022 Provider: MARCUS BUTT MD Diagnosis: Unspecified inju ry of pelvis, initial encounter TAKE 1 CAPSULE BY MOUTH EVER Y 12 HOURS FOR ACUTE COCALGIA Last Documented On 01/04/2022 11:59AM By Marcus Butt MD ; [facility] Celecoxib 200 MG Oral Capsule 11/23/2021 - 12/02/2021 Provider: MARCUS BUTT MD Diagnosis: Unspecified inju ry of pelvis, initial encounter TAKE 1 CAP BY MOUTH EVERY 12 HOURS BY MOUTH FOR ACUTE COCCALGIA Last Documented On 12/02/2021 2:26PM By Marcus Butt MD ; [facility] CeleBREX 200 MG Oral Capsule 10/20/2021 - 11/23/2021 Provider: MARCUS BUTT MD Diagnosis: Unspecified inju ry of pelvis, initial encounter 1 cap every 12 hours by lynda eddy for acute coccalgia Last Documented On 11/23/2021 5:34PM By Marcus Butt MD ; [facility] HYDROcodone-Acetaminophen 5- 325 MG Oral Tablet 10/20/2021 - 01/16/2022 Provider: MARCUS BUTT MD Diagnosis: Chronic pain syndrome 1 po three times daily as ne eded, reduce use as pain improves Last Documented On 01/16/2022 12:54PM By Marcus Butt MD ; [facility] Medrol 4 MG Oral Tablet Therapy Pack 10/20/2021 - 04/27/2022 Provider: MARCUS BUTT MD Diagnosis: Dorsalgia, unspe cified use per package instructions Last Documented On 4:30PM By Lora Sommer RN ; [facility] HYDROcodone-Acetaminophen 5- 325 MG Oral Tablet 10/04/2021 - 10/20/2021 Provider: MARCUS BUTT MD Diagnosis: Chronic pain syndrome 1 po daily as needed Last Documented On 10/20/2021 10:34AM By Marcus Butt MD ; [facility] HYDROcodone-Acetaminophen 5- 325 MG Oral Tablet 09/07/2021 - 10/03/2021 Provider: MARCUS BUTT MD Diagnosis: Chronic pain syndrome 1 po daily as needed Last Documented On 10/04/2021 2:07PM By Marcus Butt MD ; [facility] Pregabalin 75 MG Oral Capsule 09/07/2021 - 12/19/2021 Provider: MARCUS BUTT MD Diagnosis: TAKE 1 CAPSULE BY MOUTH TWICE A DAY Last Documented On 12/19/2021 7:33PM By Marcus Butt MD ; [facility] HYDROcodone-Acetaminophen 5- 325 MG Oral Tablet 04/20/2021 - 09/05/2021 Provider: MARCUS BUTT MD Diagnosis: Chronic pain syndrome 1 po BID as needed Last Documented On 09/07/2021 6:34AM By Marcus Butt MD ; [facility] HYDROcodone-Acetaminophen 5- 325 MG Oral Tablet 03/09/2021 - 04/20/2021 Provider: MARCUS BUTT MD Diagnosis: Chronic pain syndrome 1 po BID as needed Last Documented On 04/20/2021 5:56PM By Marcus Butt MD ; [facility] Pregabalin 75 MG Oral Capsule 03/07/2021 - 09/05/2021 Provider: MARCUS BUTT MD Diagnosis: TAKE 1 CAPSULE BY MOUTH TWICE A DAY Last Documented On 09/07/2021 6:34AM By Marcus Butt MD ; [facility] HYDROcodone-Acetaminophen 5- 325 MG Oral Tablet 02/23/2021 - 03/09/2021 Provider: MARCUS BUTT MD Diagnosis: 1 po BID as needed Last Documented On 03/09/2021 7:32AM By Marcus Butt MD ; [facility] Pregabalin 75 MG Oral Capsule 02/21/2021 - 03/07/2021 Provider: MARCUS BUTT MD Diagnosis: Spinal stenosis, lumbar region with neurogenic claudication TAKE 1 CAPSULE BY MOUTH TWICE A DAY Last Documented On 03/07/2021 4:38PM By Marcus Butt MD ; [facility] HYDROcodone-Acetaminophen 5- 325 MG Oral Tablet 01/19/2021 - 02/23/2021 Provider: MARCUS BUTT MD Diagnosis: Sacroiliitis, no t elsewhere classified 1 po BID as needed Last Documented On 02/23/2021 1:28PM By Marcus Butt MD ; [facility] Pregabalin 75 MG Oral Capsule 01/12/2021 - 06/16/2021 Provider: MARCUS BUTT MD Diagnosis: TAKE 1 CAPSULE BY MOUTH TWICE A DAY Last Documented On 06/16/2021 2:20PM By Hollie Hess A ; [facility] HYDROcodone-Acetaminophen 5- 325 MG Oral Tablet 12/21/2020 - 01/19/2021 Provider: RAFA GREEN Diagnosis: 1 po BID as needed Last Documented On 01/19/2021 12:04PM By Marcus Butt MD ; [facility] Pregabalin 75 MG Oral Capsule 12/20/2020 - 01/12/2021 Provider: MARCUS BUTT MD Diagnosis: Spinal stenosis, lumbar region with neurogenic claudication TAKE 1 CAPSULE BY MOUTH TWICE A DAY Last Documented On 01/12/2021 1:17PM By Marcus Butt MD ; [facility] HYDROcodone-Acetaminophen 5- 325 MG Oral Tablet 11/16/2020 - 12/21/2020 Provider: MARCUS BUTT MD Diagnosis: Low back pain 1 po BID as needed Last Documented On 2:58PM By RAFA GREEN ; [facility] Pregabalin 75 MG Oral Capsule 11/09/2020 - 12/20/2020 Provider: MARCUS BUTT MD Diagnosis: Spinal stenosis, lumbar region with neurogenic claudication TAKE 1 CAPSULE BY MOUTH TWICE A DAY Last Documented On 12/20/2020 1:58PM By Marcus Butt MD ; [facility] Dexamethasone 4 MG Oral Tablet 11/03/2020 - 01/12/2022 Provider: Diagnosis: Last Documented On 4:11PM By Lora Sommer RN ; [facility] HYDROcodone-Acetaminophen 5- 325 MG Oral Tablet 10/07/2020 - 11/16/2020 Provider: RAFA GREEN Diagnosis: 1 po BID Last Documented On 11/16/2020 9:19PM By Marcus Butt MD ; [facility] Pregabalin 75 MG Oral Capsule 10/05/2020 - 11/09/2020 Provider: RAFA GREEN Diagnosis: Spinal stenosis, lumbar region with neurogenic claudication TAKE 1 CAPSULE BY MOUTH TWICE A DAY Last Documented On 11/09/2020 2:55PM By Marcus Butt MD ; [facility] Pregabalin 75 MG Oral Capsule 09/07/2020 - 10/05/2020 Provider: RAFA GREEN Diagnosis: Spinal stenosis, lumbar region with neurogenic claudication TAKE 1 CAPSULE BY MOUTH TWICE A DAY Last Documented On 1 3:01PM By RAFA GREEN ; [facility] HYDROcodone-Acetaminophen 5- 325 MG Oral Tablet 09/03/2020 - 10/07/2020 Provider: RAFA GREEN Diagnosis: 1 po BID Last Documented On 1 11:21AM By RAFA GREEN ; [facility] Pregabalin 75 MG Oral Capsule 08/09/2020 - 09/07/2020 Provider: RAFA GREEN Diagnosis: Spinal stenosis, lumbar region with neurogenic claudication TAKE 1 CAPSULE BY MOUTH TWICE A DAY Last Documented On 1 12:56PM By RAFA GREEN ; [facility] HYDROcodone-Acetaminophen 5- 325 MG Oral Tablet 08/02/2020 - 09/03/2020 Provider: RAFA GREEN Diagnosis: 1 po BID Last Documented On 1 11:45AM By RAFA GREEN ; [facility] Pregabalin 75 MG Oral Capsule 07/26/2020 - 08/09/2020 Provider: RAFA GREEN Diagnosis: Spinal stenosis, lumbar region with neurogenic claudication 1 CAPSULE TWO TIMES A DAY Last Documented On 1 4:41PM By RAFA GREEN ; [facility] Cymbalta 60 MG Oral Capsule Delayed Release Particles 07/05/2020 - 04/27/2022 Provider: Diagnosis: Last Documented On 3 4:29PM By Lora Sommer RN ; [facility] Meloxicam 15 MG Oral Tablet 07/05/2020 - 10/13/2020 Pr ovider: Diagnosis: Last Documented On 10/13/2020 9:41AM By Arpita Nicolas RN ; [facility] Pregabalin 150 MG Oral Capsule 07/05/2020 - 06/16/2021 Provider: RAFA GREEN Diagnosis: Spinal stenosis, lumbar region with neurogenic claudication 1 CAPSULE TWO TIMES A DAY Last Documented On 06/16/2021 2:20PM By Hollie GUADALUPE ; [facility] Pregabalin 75 MG Oral Capsule 07/05/2020 - 07/26/2020 Provider: RAFA GREEN Diagnosis: Spinal stenosis, lumbar region with neurogenic claudication 1 CAPSULE TWO TIMES A DAY Last Documented On 1 11:09AM By RAFA GREEN ; [facility] HYDROcodone-Acetaminophen 5- 325 MG Oral Tablet 07/05/2020 - 08/02/2020 Provider: RAFA GREEN Diagnosis: 1 po BID Last Documented On 1 5:57PM By RAFA GREEN ; [facility] HYDROcodone-Acetaminophen 5-325 MG Oral Tablet 0 07/05/2020 - 07/05/2020 Provider: Diagnosis: Last Documented On 1 12:03PM By RAFA GREEN ; [facility] Lidocaine 5% External Patch 07/05/2020 - 06/16/2021 Pr ovider: Diagnosis: Last Documented On 06/16/2021 2:20PM By Hollie GUADALUPE ; [facility] predniSONE 10 MG Oral Tablet 07/05/2020 - 07/05/2020 P rovider: Diagnosis: Last Documented On 1 11:36AM By RAFA GREEN ; [facility] Cyclobenzaprine HCl 10 MG Oral Tablet 07/05/2020 - Provider: Diagnosis: Last Documented On 10/13/2020 9:41AM By Arpita Nicolas RN ; [facility] Medications Administered Includes: Administered Medications in patient's chart No Administered Medications Recorded Results Includes: Results from 06/12/2023 through 06/11/2024 No Results Recorded For Specified Dates History of Present Illness History of Present Illness not supported for this document type No History of Present Illness Recorded Social History Description Last Updated Tobacco non-user 06/16/2021 Last Documented On 2 11:23AM ; [facility] Non-smoker 10/13/2020 Last Documented On 1 10:31AM ; [facility] Current nonsmoker 08/11/2020 Last Documented On 1 10:58AM ; [facility] [PHQ-2] Patient Health Questionnaire 2 i tem total score: 31 (Scale: 0-6) 07/05/2020 Last Documented On 1 7:54PM ; [facility] Alcohol 07/05/2020 Last Documented On 1 7:54PM ; [facility] Amount of alcohol per day: 3 07/05/2020 Last Documented On 1 7:54PM ; [facility] Difficulty walking 07/05/2020 Last Documented On 1 7:54PM ; [facility] Drug use 07/05/2020 Last Documented On 1 7:54PM ; [facility] Type: Marijuana 07/05/2020 Last Documented On 1 7:54PM ; [facility] Smoking Status Unknown Procedures and Surgical History Surgical History Last Updated No Pacemaker 07/05/2020 Last Documented On 1 7:54PM ; [facility] Medical History Includes: Medical History in patient's chart Description Last Updated career development counselor 07/05/2020 Last Documented On 1 7:54PM ; [facility] CT/MRI 01/02/2020 01/02/2020 07/05/2020 Last Documented On 1 7:54PM ; [facility] Currently wearing eyeglasses 07/05/2020 Last Documented On 1 7:54PM ; [facility] Injection/Nerve blocks 07/05/2020 Last Documented On 1 7:54PM ; [facility] No Pain Pump 07/05/2020 Last Documented On 1 7:54PM ; [facility] No Spinal cord stimulator 07/05/2020 Last Documented On 1 7:54PM ; [facility] Other method: 07/05/2020 Last Documented On 1 7:54PM ; [facility] Pain Clinic 07/05/2020 Last Documented On 1 7:54PM ; [facility] Physical therapy 07/05/2020 Last Documented On 1 7:54PM ; [facility] Please list all illnesses/co nditions you have been diagnosed with High blood pressure depression arthuis 07/05/2020 Last Documented On 1 7:54PM ; [facility] Please list all surgeries 3c section [id number] 2007 partiasl [id number] ?[id number] left and right hands and elbow carpual turnel 07/05/2020 Last Documented On 1 7:54PM ; [facility] Uses a cane for support 07/05/2020 Last Documented On 1 7:54PM ; [facility] Wearing contact lenses 07/05/2020 Last Documented On 1 7:54PM ; [facility] X-rays 01/27/2019 01/27/2019 07/05/2020 Last Documented On 1 7:54PM ; [facility] Family History Includes: Family History in patient's chart Description Last Updated Maternal history of family history of he art disease 07/05/2020 Last Documented On 1 7:54PM ; [facility] Maternal history of family history of is chemic heart disease 07/05/2020 Last Documented On 1 7:54PM ; [facility] Maternal history of stroke/paralysis 02/2021 Last Documented On 1 7:54PM ; [facility] Paternal history of Arthritis 07/05/2020 Last Documented On 1 7:54PM ; [facility] Paternal history of family history of he art disease 07/05/2020 Last Documented On 1 7:54PM ; [facility] Paternal history of family history of is chemic heart disease 07/05/2020 Last Documented On 1 7:54PM ; [facility] Review of Systems Review of Systems not supported for this document type No Review of Systems Recorded Mental Status No Mental Status Recorded Functional Status No Functional Status Recorded Physical Exam Physical Exam not supported for this document type No Physical Exam Recorded Allergies Includes: Active, inactive, and resolved Allergies Substance Type Reaction Onset Date Resolved Date Statu s BEES Allergy Skin Rashes / Eruption of skin Active Last Documented On 11:16AM ; [facility] Encounters Includes: Encounters from 06/12/2023 through 06/11/2024 Encounter Provider Location Date Check-In Time Check-Out Time Diagnosis RX ISSUE/REFILL MARCUS BUTT MD 08/24/2023 02/08/2023 10:18AM 02/08/2023 11:59PM RX ISSUE/REFILL MARCUS BUTT MD 07/13/2023 02/08/2023 11:46AM 02/08/2023 11:59PM Insurance Includes: Active Insurance Policies Plan Name Member ID Group # Subscriber Relationship Effect evelina Dates 1 - [facility] [id number] TRAVIS Arevalo [facility] Clinical Notes Includes: Signed Clinical Notes starting from 04/14/2022 * Progress note Date Encounter Last Documented by 08/24/2023 RX ISSUE/REFILL Last documented on 08/29/2023; 8:08 AM, MARCUS BUTT MD; [facility] Active Problems & Conditions [...] ~ pt phone # for Return call: [phone] ~Last Drug Screen:11-29-22 ~Date/Initials: 08-24-2023 [facility]. History of Present Illness TRAVIS ANGUIANO is a 58 year old female. Pharmacy name:~location:[facility]. Current Medication - DULoxetine HCl 30 [...] History Reported: Injection/Nerve blocks, Pain Clinic, career development counselor, Physical therapy, Other method:, Please list all illnesses/conditions you have been diagnosed with: High blood pressure depression arthuis, and Please list all surgeries: 3c section 87?89?98 2006 partiasl [id number] ?2018 left and right hands and elbow [...] Date: 11/29/2022 Lot # & Exp. Date [id number] 06-24-23 Normal Amphetamines NEG Normal Barbiturates NEG [...] 08/24/2023. - Assess Tobacco Use satisfied 08/24/2023. * Progress note Date Encounter Last Documented by 07/13/2023 RX ISSUE/REFILL Last documented on 07/13/2023; 2:52 PM, MARCUS BUTT MD; [facility] Active Problems & Conditions [...] a 58 year old female. Pharmacy name:~location: [facility]. Current Medication - DULoxetine HCl 30 MG [...] History Reported: Injection/Nerve blocks, Pain Clinic, career development counselor, Physical therapy, Other method:, Please list all illnesses/conditions you have been diagnosed with: High blood pressure depression arthuis, and Please list all surgeries: 3c section 87?89?98 2006 partiasl [id number] ?2018 left and right hands and elbow [...]
== END 2024-06-11 17:05 | disposition home or self-care (01) ==
LOC: CHSLAB 17:05
PROVIDERS: PCP Nurse Practitioner Family; Visit Provider Nurse Practitioner Family
DX: Z11.4 Encounter for screening for human immunodeficiency virus [HIV] (principal); Z12.4 Encounter for screening for malignant neoplasm of cervix; Z11.51 Encounter for screening for human papillomavirus (HPV); Z11.8 Encounter for screening for other infectious and parasitic diseases
CPT/HCPCS: 87491; 87591; 87624; 88175; G0145

== ENCOUNTER 2025-01-09 14:13 | Outpatient (CLI) | payer MEDICARE, SELFPAY ==
--- OUTSIDE RECORDS SUMMARY | 2023-09-18 08:30 | XMS_ITS ---
Author Organization [facility] Address [address] [place], [place] [id number] Care Team Providers Care Dipper Operator Name Role Phone Lizy Tirado Unavailable Unavailable AMERICA CHAVIRA Unavailable [phone] REASON FOR VISIT [facility] Encounters Encounter Location Date Provider Diagnosis [address] [id number] 09/18/2023 AMERICA CHAVIRA Plan Of Treatment No Information Progress Notes * TRAVIS ANGUIANODOB: 8 (59 yo F)Acc No.[id number]:09/18/2023 Patient: TRAVIS SNYDER Provider: Lucas CHAVIRA :1965 A ge:58 Y S ex:Female Date:09/18/2023 Address:[address] [facility] * Billing Information: * Visit Code: * Procedure Codes: * Electronic signature of RADHA CHAVIRA DPM on 01/09/2025 at 02:16 PM CDT Sign off status: Pending * Provider: Lucas CHAVIRA Date: 0 09/18/2023 Generated for Kierra amos/Efra/eTransmitting on: 1 02:16 PM CDT
--- OUTSIDE RECORDS SUMMARY | 2023-10-02 08:00 | XMS_ITS ---
Author Organization [facility] Address [address] [place], [place] [id number] Care Team Providers Care Window Glass Installer Name Role Phone Lizy Tirado Unavailable Unavailable AMERICA CHAVIRA Unavailable [phone] REASON FOR VISIT [facility] SURGERY Encounters Encounter Location Date Provider Diagnosis [address] [id number] 10/02/2023 AMERICA CHAVIRA Plan Of Treatment No Information Progress Notes * TRAVIS ANGUIANODOB: 8 (59 yo F)Acc No.[id number]:10/02/2023 Patient: TRAVIS SNYDER Provider: Lucas CHAVIRA :1965 A ge:58 Y S ex:Female Date:10/02/2023 Address:[address] [facility] * Billing Information: * Visit Code: * Procedure Codes: * Electronic signature of RADHA CHAVIRA DPM on 01/09/2025 at 02:16 PM CDT Sign off status: Pending * Provider: Lucas CHAVIRA Date: 0 10/02/2023 Generated for Kierra amos/Efra/eTransmitting on: 1 02:16 PM CDT
--- OUTSIDE RECORDS SUMMARY | 2023-10-18 06:00 | XMS_ITS ---
Author Organization [facility] Address [address] [place], [place] [id number] Care Team Providers Care Mainframe Systems Engineer Name Role Phone Lizy Tirado Unavailable Unavailable AMERICA CHAVIRA Unavailable [phone] REASON FOR VISIT 1st Post Op Encounters Encounter Location Date Provider Diagnosis [facility] [address] [place], [place] [id number] 10/18/2023 AMERICA CHAVIRA Plan Of Treatment No Information Progress Notes * TRAVIS ANGUIANODOB: 8 (59 yo F)Acc No.[id number]:10/18/2023 Patient: TRAVIS SNYDER Provider: Lucas CHAVIRA :1965 A ge:58 Y S ex:Female Date:10/18/2023 Address[address] [facility] Subjective: * Chief Complaints: * 1 . 1st Post Op. * Medical History: Objective: * Vitals: Assessment: Plan: * Treatment: * Billing Information: * Visit Code: * Procedure Codes: * Electronic signature of RADHA CHAVIRA DPM on 01/09/2025 at 02:16 PM CDT Sign off status: Pending * Provider: Lucas CHAVIRA Date: 0 10/18/2023 Generated for Kierra ng/Efra/eTransmitting on: 1 02:16 PM CDT
--- OUTSIDE RECORDS SUMMARY | 2025-01-09 14:16 | XMS_ITS | Encounter Summary ---
Author Organization [facility] Address [address] [place] [address] Care Team Providers Care Certified Retinal Angiographer Name Role Phone Unavailable Primary Care Provider Unavailabl e Encounter Details Date Type Department Care Team (Late st Contact Info) Description 10/17/2022 Lab Requisition [facility] - DermPath Lab [address], [facility] [place] [id number] Darby Thompson PA-C [address] [place] [address] Neoplasm of uncertain behavior of skin Social History Tobacco Use Types Packs/Day Years Used Date Smoking Tobacco: Never Assessed Comments Unknown Sex and Gender Information Value Date Recorded Sex Assigned at Not on file Legal Sex Female 9:36 AM CDT Gender Identity Not on file [...] AM CDT) Case Report Dermatopathology Report Case: [id number] Authorizing Provider: Darby Thompson PA-C Collected: 10/16/2022 12:00 AM Ordering Location: [facility] DermPath Lab Received: 10/18/2022 01:57 PM Pathologist: [...] POST-INFLAMMATORY PIGMENT ALTERATION (L81.9) 3 2:21 PM T DERMATOPATHOLOGY LABORATORY at 1421 CDT Clinical History A-B, D: Atypical Nevus C: Irritated Nevus 3 2:21 PM T DERMATOPATHOLOGY LABOR[facility]ORY Gross Description Specimen A: Received [...] 7x3x1 mm. Jar 0. 3 2:21 PM T DERMATOPATHOLOGY LABORATORY Microscopic Description Specimen A. SKIN, [...] purposes. Billing Codes Specimen Charges Stain Charges [id number] 1 1 1 1 [id number] 1 3 2:21 PM CDT DERMATOPATHOLOGY LABORATORY [...] PM CDT Darby Thompson PA-C LAB - PATHOLOGY/CYTOLOGY RENALDO HASSAN Final Result DERMATOPATHOLOGY LABORATORY [facility] - Department of Dermatology [address] [place] [address], [facility] [phone] documented in this encounter Visit Diagnoses Diagnosis Neoplasm of uncertain behavior of skin documented in this encounter
--- OUTSIDE RECORDS SUMMARY | 2025-01-09 14:16 | XMS_ITS | Clinical Summary ---
Author Organization [facility] Address [address] [place] [address] Care Team Providers Care Foundry Tender Name Role Phone Unavailable Primary Care Provider Unavailabl e Source Comments [facility],non-owned Affiliates and Associated Physician Practices is amultiple site organization consisting of ambulatory clinics and hospital sitesin [place], [place] and [place]. This disclosure is being madepursuant to the Care Everywhere program and may not contain all information available regarding this patient. Last updated 17.[facility] Social History Tobacco Use Types Packs/Day Years [...] SCREENING 1967 LIPID TESTING 1967 MAMMOGRAM 1967 HIV SCREENING 07/07/1982 HEPATITIS C SCREENING 07/03/1985 DTAP/TDAP/TD VACCINES (1 - Tdap) 07/07/1986 HEPATITIS B VACCINE (1 of 3 - 19+ 3-dose series) 07/07/1986 PAP SMEAR 07/07/1988 PNEUMOCOCCAL VACCINE 50+ (1 of 1 - PCV) 07/07/2017 ZOSTER VACCINE (1 of 2) 07/07/2017 DEPRESSION SCREENING 03/26/2024 MEDICARE AWV CALENDAR YEAR 2024 COVID-19 VACCINE (1 - 2023-2 5 season) 2024 INFLUENZA VACCINE (#1) 2024 HIB VACCINE Aged Out No longer [...] patient's age to complete this topic Insurance [facility] MANAGED MEDICARE ADV
--- OUTSIDE RECORDS SUMMARY | 2025-01-09 14:17 | XMS_ITS | Encounter Summary ---
Author Organization [facility] Address [facility] [place] [address] Care Team Providers Care Seal Extrusion Operator Name Role Phone Lizy Tirado SITE DIRECTOR Primary Care Provider + [phone] Encounter Details Date Type Department Care Team (Late st Contact Info) Description 05/24/2020 Telephone [facility] [place] [address] [phone] Jennifer Sy RN Social History Tobacco Use [...] COVID-19? 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 PRODUCTION WORKER documented in this encounter Plan of Treatment Not on file documented as of this encounter Visit Diagnoses Not on filedocumented in this encounter Care Teams Seal Extrusion Operator Relationship Specialty Start Date End Date Lizy Tirado FNP [address] [place] [address] PCP - General NURSE PRACTITIONER 01/02/20 documented as of this encounter
--- OUTSIDE RECORDS SUMMARY | 2025-01-09 14:17 | XMS_ITS | Clinical Summary ---
Author Organization [facility] Address [address] [place] [address] Care Team Providers Care Bottom Finisher Name Role Phone Lizy Tirado MODEL AND MOLD MAKER Primary Care Provider [phone] Allergies No known active allergies Medications lisinopril [...] CDT Respiratory Rate 18 05/07/2020 1:14 PM DIRECTOR TALENT Oxygen Saturation 100% 08/25/2020 3:56 PM CDT [...] 19+ 3-dose series) 07/07/1986 Mammogram Screening 2007 Pneumococcal Vaccine: 50+ Ye ars (1 of 1 - PCV) 07/07/2017 Zoster Vaccines (1 of 2) 07/07/2017 COVID-19 Vaccine (2 - 2024-2 6 season) 2024 08/09/2020 Influenza Adult (#1) 2024 Hepatitis A Vaccines Aged Out No long er eligible based on patient's age to complete this topic Meningococcal B Vaccine Aged Out No l onger eligible based on patient's age to complete this topic Meningococcal Vaccine Aged Out No garrick red eligible based on patient's age to complete this topic RSV Immunizations Under 20 Months Aged Out No longer eligible based on patient's age to complete this topic Insurance [facility] MEDICARE Care Teams Bottom Finisher Relationship Specialty Start Date End Date Lizy Tirado, FRANK [address] [place] [address] PCP - General NURSE PRACTITIONER 01/02/20
--- OUTSIDE RECORDS SUMMARY | 2025-01-09 14:17 | XMS_ITS | Patient Health Record ---
Author Organization [facility] Address [address] [place], [place] [id number] Care Team Providers Care Kettle Operator Name Role Phone Lizy Tirado Unavailable Unavailable Allergies Allergen (clinical drug ingredient) Drug/Non Drug Allergy documented on EMR Reaction Allergy Type Onset Date Status Wasp Venom Unknown Drug Allergy Active Reason For Referral No Information Medications Medication SIG (Take, Route, Frequency, Duration) Notes Start Date End Date Status Lisinopril 20 MG 1 tablet Orally Once a day Active Meloxicam 15 MG 1 tablet Orally Once a day Active DULoxetine HCl 30 MG 1 capsule Orally On ce a day Active Ozempic Active HYDROcodone-Acetaminophen 5-325 MG 1 tablet as needed Orally every 6 hrs Active valACYclovir HCl 500 MG 1 tablet Orally Once a day Active hydrOXYzine HCl 25 MG 1 tablet as needed Orally Once a day Active Pregabalin 75 MG 1 capsule in the brooklynn mason 1 to 3 hours before bedtime Orally Once a day Active Plan Of Treatment No Information Insurance Providers Payer Name Payer Address Payer Phone Subscriber Number Group Number Insured Name Patient Relationship to Insured Coverage Start Date Coverage End Date [facility] [address] [address] [place] [address] [id number] TRAVIS ANGUIANO Self - patient is the insured Medical (General) History Medical History History ICD Code stroke anemia Cancer (type of cancer) Arthritis Thyroid Disease Back Trouble Diabetic varicose veins hypertension Surgical History Surgery Date(Month/Year) section Carpal Tunnel release Elbow surgery
[2025-01-09 14:32] LABS: MALB Creatinine Ratio 21.2 mg/g (0-30)
== END 2025-01-09 14:14 | disposition home or self-care (01) ==
PROVIDERS: PCP Nurse Practitioner Family; Visit Provider Nurse Practitioner Family
DX: E11.9 Type 2 diabetes mellitus without complications (principal)
CPT/HCPCS: 82043